=== PATIENT | male | born 1990 | race African-American/Black ===

== ENCOUNTER → 2022-08-13 | Outpatient (CLI) | payer MEDICAID, SELFPAY ==
--- NOTE | 2022-08-13 14:28 | SP.MBSS_ITS ---
Modified Barium Swallow - Patient Information Study Date: 08/13/22 Study Time: 13:00 Direct Billable Minutes: 77 Total Minutes procedure & reportin Diagnosis: GERD (K21.9) Referring Physician: Oleksandr Paul Reason for Referral: Objectively assess swallow function, assess risk for aspiration, and determine recommendations for least restrictive diet textures and compensatory strategies to improve safety of swallow. Medical History: Elías Leroy is a 32-year-old male with a history of GERD, treated with Omeprazole for about a year and a half. Patient reported he believes medication is not working. Patient reported his previous ENT, prior to seeing Dr. Paul, reported that the patient?s throat looked inflamed. Patient referred for speech evaluation due to concerns for swallowing. Patient reported that his throat feels tight every time he eats or drinks, and occasionally feels as though things may enter his nasopharynx, with onset of symptoms over a year ago. Patient reported he rarely coughs while eating and drinking and has no history of PNAs. 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 Patient has scheduled esophagram tomorrow, 08/14/22.? Dentition: WNL, Natural Teeth Mental Status: WNL Respiratory Status: Oxygenating on Room Air - Penetration-Aspiration Scale Penetration-Aspiration Scale: OBJECTIVE ASSESSMENT OF SWALLOW FUNCTION (QUANTITATIVE ? PER TRIAL): PENETRATION / ASPIRATION SCALE (BENAVIDES): 1 = does not enter airway 2 = enters airway/above vocal folds/ejected 3 = enters airway/above vocal folds/not ejected 4 = enters airway/contacts vocal folds/ejected 5 = enters airway/contacts vocal folds/not ejected 6 = enters airway/below vocal folds/ejected 7 = enters airway/below vocal folds/not ejected despite effort 8 = enters airway/below vocal folds/no effort VIDEOFLOROSCOPIC SCALE SCORE (BENAVIDES): Grade I = aspiration of material that has penetrated into the laryngeal vestibule, intact cough reflex Grade II = aspiration < 10 % of the bolus, intact cough reflex Grade III = aspiration of < 10 % of the bolus, reduced cough reflex or aspiration of > 10 % of the bolus, intact cough reflex Grade IV = aspiration of > 10 % of the bolus, reduced cough reflex - Penetration-Aspiration Scale Score Thin Liquid via teaspoon Result: 1= does not enter airway Thin Liquid via teaspoon Trial 2 Result: 1= does not enter airway Thin Liquid via large single sip from cup Result: 1= does not enter airway [place] Thick Liquid via small single sip from cup Result: 1= does not enter airway Pudding via teaspoon w/esophageal screen Result: 1= does not enter airway 1/2 Cookie Result: 1= does not enter airway Thin Liquid via sequential sips from straw w/esophageal screen Result: 1= does not enter airway - Oral Phase Labial Seal: No Labial Escape Tongue Control During Bolus Hold: Posterior escape of less than half of bolus Bolus Preparation/Mastication: Timely and efficient chewing and mashing Bolus Transport/Lingual Motion: Delayed initiation of tongue motion Oral Residue: Trace residue lining oral structures - Pharyngeal Phase Initiation of Pharyngeal Swallow: Bolus head at posterior laryngeal surgace of epiglottis Soft Palate Elevation: Trace column of contrast/air between soft palate and pharyngeal wall Laryngeal Elevation: Comp. Superior move thyroid cart w/comp. apprx arytenoid cart-epig pet Anterior Hyoid Excursion: Complete anterior movement Epiglottic Movement: Complete inversion Laryngeal Vestibule Closure at Height of Swallow: Complete; no air/contrast in laryngeal vestibule Pharyngeal Stripping Wave: Present - complete Pharyngoesophageal Segment Opening: Parital distension and partial duration; parital obstruction of flow Tongue Base Retraction: Trace column of contrast between tongue base & post. pharyngeal wall Pharyngeal Residue: Trace residue within or on pharyngeal structures - Esophageal Phase Esophageal Clearance: Esophageal retention - Diagnosis/Impression Diagnosis: Oropharyngeal Swallow Function Within Normal Limits Impression: The oral phase is grossly within normal limits. Brisk AP transport, with the exception of mildly delayed AP transport observed with large and sequential sips, resulting in posterior loss of <1/2 bolus, and swallow onset at the level of posterior surface of epiglottis. The pharyngeal phase is grossly within normal limits. Complete hyolaryngeal elevation, and excursion, resulting in complete airway closure. Trace contrast between tongue base and pharyngeal wall, resulting in trace pharyngeal residues, especially observed with large, and sequential sips. The esophageal phase is grossly within normal limits. Minimal retention in the mid esophagus with pudding trial, which cleared with thin liquid wash by sequential straw sips. - Recommendations Diet: Regular Textures, Thin Liquids Compensatory Strategies: Small Bites, Small Sips, Slow Rate Recommend Repeat Modified Barium Swallow: No Need for Skilled Speech Therapy Services: No Comment: No dysphagia therapy warranted at this time. Will recommend patient proceed with scheduled espohagram, scheduled for tomorrow, and consider GI consult to address GERD and esophageal concerns. Recommended Referrals: GI Consult Education Completed: 1. Described result of evaluation., 2. Pt understands evaluation & agrees with goals and treatment plan., 6. Family/caregivers demonstrate recommended strategies. - Status Active ST Patient: Active - Contact Information [facility] Speech Therapy:: Donna Murrieta M.A. [facility]-BUSINESS RESILIENCY MANAGER Speech-Language Pathologist [facility] [address] [place] [address] [email or web address] [phone] 08/13/22 14:41
== END | disposition home or self-care (01) ==
LOC: RAD 13:01
PROVIDERS: Referring Provider Otolaryngology; Visit Provider Otolaryngology
DX: K21.9 Gastro-esophageal reflux disease without esophagitis (principal)
CPT/HCPCS: 74230; 92611

== ENCOUNTER → 2022-08-14 | Outpatient (CLI) | payer MEDICAID, SELFPAY ==
--- NOTE | 2022-08-14 08:56 | RAD_ITS ---
STUDY: X-RAY - ESOPHAGUS (BARIUM SWALLOW) WITH FLUOROSCOPY REASON FOR EXAM: Male, 32 years old. GERD TECHNIQUE: 16 view(s) of the esophagus were obtained following swallowing of barium. FLUOROSCOPY TIME (if supplied): (38 seconds) minutes/seconds. 5.6 mGy COMPARISON: None. FINDINGS: There is no demonstrated esophageal foreign body. There is no demonstrated stricture or mucosal abnormality. Normal gastroesophageal junction, without a demonstrated hiatal hernia. The patient ingested a 12 mm tablet of barium without any difficulty. Normal visualized aortic arch and descending thoracic aorta. Normal visualized pulmonary parenchyma. Normal visualized osseous structures of the thorax. RAD/Esophagus Dual Contrast IMPRESSION: Normal plain film x-ray examination (barium swallow) of the esophagus. Electronically Signed: Jose Winston MD at 15:31 EDT ,
== END | disposition home or self-care (01) ==
LOC: RAD 08:47
PROVIDERS: Referring Provider Otolaryngology; Visit Provider Otolaryngology
DX: K21.9 Gastro-esophageal reflux disease without esophagitis (principal)
CPT/HCPCS: 74220; 74221

== ENCOUNTER 2022-08-23 17:43 | Emergency (ER) | payer MEDICAID, SELFPAY ==
[2022-08-23 17:44] VITALS: BP 155/85; PULSE 78; RESP 18; TEMP 37.7; O2SAT 100
--- NOTE | 2022-08-23 18:00 | RAD_ITS ---
INDICATION: Cough EXAMINATION/TECHNIQUE: X-RAY - XR Chest 2 Views COMPARISON: None FINDINGS: LINES/DEVICES: None. LUNGS: No consolidation, edema or effusion. No pneumothorax. MEDIASTINUM AND CARDIOVASCULAR STRUCTURES: Cardiac silhouette not enlarged. Central airways and mediastinal contour are unremarkable. RAD/Chest PA and Lateral IMPRESSION: No radiographic evidence of acute cardiopulmonary disease. Electronically Signed: Adarsh Rowley MD at 18:19 EDT ,
--- NOTE | 2022-08-23 18:02 | EX.ED.DYSGE1 ---
HPI History of Present Illness Chief Complaint: Shortness of Breath Narrative Narrative: Patient presents with hearing noises when he breathes at night. He is concerned he has obstruction of his airway or may be a stroke making him not Breathe Right. This has been going on for a second. When I try to ascertain how long the second is it sounds like this is at least months if not several years. I cannot get what changed or what is different or if anything is different to bring him in today. He did see ENT somewhere within the last month and had an exam and was told they see no abnormalities. He has been eating and drinking normally. No weight loss. He does have a history of anxiety. He denies being on meds. He states he might have a history of asthma but it does not sound like he is ever used an inhaler. He gets a cough but no sputum production. He has no numbness tingling weakness or discoordination. PFSH PFS Home Medications esomeprazole magnesium 20 mg capsule,delayed release (Nexium) 20 mg PO DAILY #30 caps 08/23/22 [Rx Last Taken Unknown] Allergy/AdvReac Type Severity Reaction Status Date / Time Sulfa (Sulfonamide Allergy Hives Verified 08/23/22 17:45 Antibiotics) Social History Smoking Status: Never smoker ROS ROS ED Constitutional Constitutional ED: Denies chills, fever(s) or sweats Eyes Eyes: Denies change in vision ENT ENT ED: Reports rhinorrhea; Denies ear pain or sore throat Cardiovascular Cardiovascular: Denies chest pain or palpitations Respiratory/Chest Respiratory/Chest: Reports cough and other Details: It is possible patient has some sleep apnea. He states that he is afraid he will stop breathing at night. But I cannot get from him if he actually wakes up gasping or with trouble breathing. ; Denies sputum Gastrointestinal Gastrointestinal: Denies nausea or vomiting Musculoskeletal Musculoskeletal: Denies myalgias or neck pain Integumentary Denies rash Neurologic Neurologic: Denies headache(s), paresthesias or weakness Hematologic/Lymphatic Hematologic/Lymphatic: Denies lymphadenopathy Allergic/Immunologic Allergic/Immunologic ED: Denies urticaria EXAM Physical Exam Const Vital Signs: 08/23/22 17:44 08/23/22 18:08 08/23/22 18:12 Temperature 100 F H Temperature Source Temporal Pulse Rate 78 Respiratory Rate 18 18 Respiratory Effort Normal Non-Labored Respiratory Depth Normal Respiratory Pattern Normal Normal Blood Pressure 155/85 H Blood Pressure Mean 108 Pulse Ox 100 Oxygen Delivery Method Room Air Room Air MDM MDM MDM Narrative Medical decision making narrative: Patient really did not get any notable benefit from the DuoNeb. We tried this because of his intermittent coughing and shortness of breath symptoms and history of possible asthma. My independent interpretation of his 2 view chest x-ray shows no acute process and final reading is similar. I talked with the patient more. It is very hard to get details from this patient. But he is now saying that he normally has problems when he goes to bed or when he wakes up. He does have acid taste in his mouth. He is wondering if this is from his stomach. It is certainly possible that reflux is causing him some coughing at night. Is not an uncommon cause. For this reason we will try his proton pump inhibitor for a few weeks. I will give him referral to primary physician. Radiography Diagnostic Testing: Clinical Impression(s) from Imaging Studies Chest X-Ray 08/23/22 18:00 IMPRESSION: No radiographic evidence of acute cardiopulmonary disease. Electronically Signed: Adarsh Rowley MD at 18:19 EDT , Discharge Plan Triage Chief Complaint: Shortness of Breath ED Provider: Jose Will Dx/Rx/DC Orders Clinical Impression: Cough, GERD (gastroesophageal reflux disease) Instructions: ED GERD (Adult) Prescriptions: New esomeprazole magnesium [Nexium] 20 mg capsule,delayed release(DR/EC) 20 mg PO DAILY Qty: 30 0RF Primary Care Provider: Care Physician,No Primary Referrals: Hank Camarena MD [Med Staff - Pharmacy Technician Infusion] - 1-2 Weeks Care Physician,No Primary [Primary Care Provider] - Disposition Disposition: Home, Self Care
[2022-08-23] MEDS: Ipratropium/Albuterol Sulfate 3 ML AMPUL.NEB INHALATION (18:06)
[2022-08-23 18:08] VITALS: RESP 18
--- NOTE | 2022-08-23 19:25 | CM.ED ---
Social Work Note Referral Source: case find Referral Reason: no PCP SW met with patient and introduced herself and role as [facility] Brand Strategist. Patient lying on hospital bed and agreeable to speak with SW. SW inquired about patient's insurance and current PCP. Patient verified insurance and reports no current PCP. SW provided patient with a list of local PCPs in network with patient's insurance and accepting new patients. Patient was receptive towards list and voiced no other needs. SW remains available if needs arise. Ayse Hawkins MSW, MERARY
== END 2022-08-23 20:21 | disposition home or self-care (01) ==
PROVIDERS: Emergency Provider Emergency Medicine; Visit Provider Emergency Medicine
DX: R05.9 Cough, unspecified (principal); K21.9 Gastro-esophageal reflux disease without esophagitis
CPT/HCPCS: 71046; 94640; 99282

== ENCOUNTER 2023-01-25 17:22 | Emergency (ER) | payer MEDICAID, SELFPAY ==
[2023-01-25 17:24] VITALS: BP 137/84; PULSE 115; RESP 18; TEMP 37.3; O2SAT 99; BMI 26.4
--- NOTE | 2023-01-25 18:24 | RAD_ITS ---
STUDY: X-RAY - MANDIBLE (COMPLETE) REASON FOR EXAM: Male, 32 years old. jaw pain TECHNIQUE: 6 view(s) of the mandible were obtained. COMPARISON: None. FINDINGS: Normal mandible. Normal visualized right temporomandibular joint. Normal visualized left temporomandibular joint. The remaining visualized osseous structures are normal. The soft tissue structures are unremarkable. RAD/Mandible Min 4 Views IMPRESSION: Normal x-ray examination of the mandible. MRI of TM joints recommended for further evaluation if clinically warranted Electronically Signed: Duong Cole MD at 19:00 EDT ,
--- NOTE | 2023-01-25 19:26 | EX.ED.DYSGE1 ---
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 He states it feels worse today upon awakening. Denies any trauma. He states he does grind his teeth pretty badly at night. He is never seen anybody for this. PFSH PFSH Home Medications esomeprazole magnesium 20 mg capsule,delayed release (Nexium) 20 mg PO DAILY #30 caps 08/23/22 [Rx Last Taken Unknown] ibuprofen 600 mg tablet 600 mg PO Q8H PRN PRN pain #20 TABLETS 01/25/23 [Rx Last Taken Unknown] Allergy/AdvReac Type Severity Reaction Status Date / Time Sulfa (Sulfonamide Allergy Hives Verified 01/25/23 17:24 Antibiotics) Social History Smoking Status: Current some day smoker tobacco type: cigarettes ROS ROS ED Constitutional Constitutional ED: Denies chills, fever(s) or sweats Eyes Eyes: Denies blurry vision or change in vision ENT ENT ED: Reports other Details: Jaw pain ; Denies ear pain or sore throat Cardiovascular Cardiovascular: Denies chest pain, palpitations or racing heartbeat Respiratory/Chest Respiratory/Chest: Denies cough, dyspnea or sputum Gastrointestinal Gastrointestinal: Denies abdominal pain, constipation, diarrhea, nausea or vomiting Genitourinary Genitourinary ED: Denies dysuria, hematuria or urinary frequency Musculoskeletal Musculoskeletal: Denies arthralgias, myalgias or neck pain Integumentary Denies abscess, Abrasions or rash Neurologic Neurologic: Denies headache(s), paresthesias or weakness Psychiatric Psychiatric: Denies anxiety, depression, suicidal ideation or suicidal thoughts Endocrine Endocrinology: Denies polydipsia or polyuria EXAM Physical Exam Const Vital Signs: 01/25/23 17:24 01/25/23 17:43 Temperature 99.1 F Temperature Source Temporal Pulse Rate 115 H Respiratory Rate 18 Respiratory Effort Normal Respiratory Pattern Normal Blood Pressure 137/84 H Blood Pressure Mean 101 Pulse Ox 99 Oxygen Delivery Method Room Air Positive well nourished General Appearance ED: NAD; Negative for pallor HEENT Reports moist mucous membranes HEENT Narrative: Jaw malocclusion. No trismus. Eyes PERRL and EOMs intact bilaterally Chest Wall inspection of chest normal and palpation of chest normal Resp normal respiratory effort and clear to auscultation bilaterally Auscultation: Negative for rales or rhonchi Cardio regular rate and regular rhythm Neuro oriented x3 and CN's II-XII intact bilaterally Sensorium / Orientation: alert Psych mental status grossly normal Skin no rashes or lesions noted and no wounds General Skin Exam: Negative for jaundice or pallor MDM MDM MDM Narrative Medical decision making narrative: Presenting with bilateral jaw pain and has a history of bruxism. No jaw malocclusion. No trismus. Otherwise oropharynx is patent without stridor. Obtained a mandible x-ray which shows no acute fracture or subluxation rotation. Radiologist interpretation agrees. Patient counseled he should alternate Tylenol and ibuprofen. He is given follow-up with maxillofacial. Impression: 1. TMJ 2. Bruxism Radiography Diagnostic Testing: Clinical Impression(s) from Imaging Studies Mandible X-Ray 01/25/23 18:24 IMPRESSION: Normal x-ray examination of the mandible. MRI of TM joints recommended for further evaluation if clinically warranted Electronically Signed: Duong Cole MD at 19:00 EDT , Discharge Plan Triage Chief Complaint: Other, Pain/Inj ED Provider: Thaddeus Gastelum Dx/Rx/DC Orders Instructions: Bruxism, ED TMJ Syndrome Prescriptions: New ibuprofen 600 mg tablet 600 mg PO Q8H PRN PRN (Reason: pain) Qty: 20 0RF No Action esomeprazole magnesium [Nexium] 20 mg capsule,delayed release(DR/EC) 20 mg PO DAILY Qty: 30 0RF Primary Care Provider: Care Physician,No Primary Referrals: Munir Thacker DDS [Med Staff - Active Staff] - 3-5 Days Care Physician,No Primary [Primary Care Provider] - Disposition Disposition: Home, Self Care
== END 2023-01-25 19:33 | disposition home or self-care (01) ==
PROVIDERS: Emergency Provider Student in an Organized Health Care Education/Training Program; Visit Provider Student in an Organized Health Care Education/Training Program
DX: R68.84 Jaw pain (principal); F17.210 Nicotine dependence, cigarettes, uncomplicated
CPT/HCPCS: 70110; 99282

== ENCOUNTER 2023-03-09 02:19 | Emergency (ER) | payer MEDICAID, SELFPAY ==
[2023-03-09 02:19] VITALS: BP 167/91; PULSE 98; RESP 16; TEMP 36.6; O2SAT 99; BMI 27.2
--- NOTE | 2023-03-09 02:54 | EX.ED.DYSGE1 ---
HPI History of Present Illness Chief Complaint: Anxiety Informant: patient Narrative Narrative: Patient is a 33-year-old male who reports a remote history of anxiety but states he is not on medication for it. He states that he has been under a great deal of stress recently and has had the sensation that something bad will happen. He states that he feels that his heart is racing and that his muscles are spasming. He denies taking any illicit drugs or excessive stimulant. He states that his symptoms have been persistent since earlier this evening and as he cannot get to sleep secondary to the persistent sensation of anxiety or doom he comes in for evaluation. [facility] Medical History (Updated 03/09/23 @ 05:[address] Viktor Valdez DO) Anxiety Home Medications esomeprazole magnesium 20 mg capsule,delayed release (Nexium) 20 mg PO DAILY #30 caps 08/23/22 [Rx Last Taken Unknown] ibuprofen 600 mg tablet 600 mg PO Q8H PRN PRN pain #20 TABLETS 01/25/23 [Rx Last Taken Unknown] escitalopram oxalate 10 mg tablet (Lexapro) 10 mg PO DAILY 30 days #30 tabs 03/09/23 [Rx Last Taken Unknown] hydroxyzine HCl 25 mg tablet 25 mg PO 4X/DAY PRN PRN Breakthrough anxiety #40 tabs 03/09/23 [Rx Last Taken Unknown] Allergy/AdvReac Type Severity Reaction Status Date / Time Sulfa (Sulfonamide Allergy Hives Verified 03/09/23 02:22 Antibiotics) Social History Smoking Status: Current some day smoker tobacco type: cigarettes ROS ROS ED Constitutional Constitutional ED: Denies chills or fever(s) Eyes Eyes: Denies blurry vision or change in vision ENT ENT ED: Denies sore throat Cardiovascular Cardiovascular: Reports racing heartbeat; Denies chest pain or palpitations Respiratory/Chest Respiratory/Chest: Reports dyspnea; Denies cough Gastrointestinal Gastrointestinal: Reports nausea; Denies abdominal pain, diarrhea or vomiting Genitourinary Genitourinary ED: Denies dysuria Musculoskeletal Musculoskeletal: Reports myalgias Integumentary Denies rash Neurologic Neurologic: Denies headache(s) Psychiatric Psychiatric: Reports anxiety; Denies suicidal ideation or suicidal thoughts Hematologic/Lymphatic Hematologic/Lymphatic: Denies easy bleeding or easy bruising EXAM Physical Exam Const Vital Signs: 11/18/23 02:19 03/09/23 03:00 Temperature 98 F Temperature Source Temporal Pulse Rate 98 98 Respiratory Rate 16 15 Blood Pressure 167/91 H 188/104 H Blood Pressure Mean 116 132 Pulse Ox 99 99 Oxygen Delivery Method Room Air Positive well nourished and well developed General Appearance ED: well developed HEENT Reports moist mucous membranes Eyes PERRL and EOMs intact bilaterally General Eye ED: Negative for scleral icterus Neck supple Neck Narrative: No nuchal rigidity or meningeal signs noted Resp normal respiratory effort and clear to auscultation bilaterally Cardio regular rate and regular rhythm Rate: other Other Details: Heart is regular rate and rhythm without murmurs rubs or gallops Radial and carotid pulses are equal and symmetric GI normal to inspection, nondistended, normoactive bowel sounds, non-tender, non-distended and no masses GI Narrative: No voluntary guarding or rigidity. No pulsatile mass or fluid wave Auscultation: normoactive bowel sounds Palpation: soft Extremity normal to inspection Neuro oriented x3, CN's II-XII intact bilaterally and no sensory deficits noted Sensorium / Orientation: alert Motor Exam: strength 5/5 throughout Psych Psych Narrative: Patient has a nervous/anxious affect without homicidal or suicidal ideation Skin no rashes or lesions noted MDM MDM MDM Narrative Medical decision making narrative: Patient presented to the ER hypertensive otherwise with stable vitals. He reported a remote history of anxiety that is not treated with medication. He states has been having increased life stressors recently and his symptom profile of palpitations shortness of breath with impending sense of doom is most likely related to anxiety. As his neuro exam is normal he does not have belly pain or chest pain concern for acute coronary syndrome hypertensive emergency or cardiovascular event is low I do not feel there is need for work-up. Patient also denies any homicidal or suicidal ideation and is not displaying acute psychosis therefore there is no need for acute psychiatric work-up. Patient was given Ativan in ER to temporarily control symptoms and will be discharged home with Lexapro and hydroxyzine for continued anxiety control. History & Record Review Discussion w/independent historian: Patient Discharge Plan Triage Chief Complaint: Anxiety ED Provider: Viktor Valdez Dx/Rx/DC Orders Clinical Impression: Anxiety reaction, Hypertension Instructions: Anxiety Disorders Tx, ED Anxiety Reaction Prescriptions: New escitalopram oxalate [Lexapro] 10 mg tablet 10 mg PO DAILY 30 Days Qty: 30 0RF hydroxyzine HCl 25 mg tablet 25 mg PO 4X/DAY PRN PRN (Reason: Breakthrough anxiety) Qty: 40 0RF No Action esomeprazole magnesium [Nexium] 20 mg capsule,delayed release(DR/EC) 20 mg PO DAILY Qty: 30 0RF ibuprofen 600 mg tablet 600 mg PO Q8H PRN PRN (Reason: pain) Qty: 20 0RF Primary Care Provider: Karyna Maldonado NP Referrals: Karyna Maldonado CONSULTING PRACTICE DIRECTOR, CONSULTING PRACTICE DIRECTOR-C [Primary Care Provider] - Activity Restrictions/Additional Instructions: Please take the medication as prescribed to help control your symptoms and return to the ER should you have any further concerns Disposition Disposition: Home, Self Care Discharge Date/Time: 03/09/23 03:03
[2023-03-09] MEDS: LORazepam 1 MG Tablet 2 MG PO (02:59)
[2023-03-09 03:00] VITALS: BP 188/104; PULSE 98; RESP 15; O2SAT 99
== END 2023-03-09 03:03 | disposition home or self-care (01) ==
PROVIDERS: Emergency Provider Emergency Medicine; PCP Internal Medicine; Visit Provider Emergency Medicine
DX: F41.1 Generalized anxiety disorder (principal); I10 Essential (primary) hypertension; F17.210 Nicotine dependence, cigarettes, uncomplicated
CPT/HCPCS: 99282

== ENCOUNTER 2023-05-11 14:31 | Observation (INO) | payer MEDICAID, SELFPAY ==
[2023-05-11] VITALS (16 sets, daily range): BP systolic 121–157; BP diastolic 57–90; PULSE 56–88; RESP 12–21; TEMP 36.7–36.8; O2SAT 93–100; BMI 29.0; BMI 27.9
--- NOTE | 2023-05-11 14:33 | EDS_ITS ---
HPI History of Present Illness Chief Complaint: Allergic Reaction [facility] Medical History (Updated 05/11/23 @ 15:[address] Oleksandr Paul MD) Anxiety Home Medications escitalopram oxalate 10 mg tablet (Lexapro) 10 mg PO DAILY 30 days #30 tabs 03/09/23 [Rx Last Taken Unknown] hydroxyzine HCl 25 mg tablet 25 mg PO 4X/DAY PRN PRN Breakthrough anxiety #40 tabs 03/09/23 [Rx Last Taken Unknown] Allergy/AdvReac Type Severity Reaction Status Date / Time escitalopram [From Lexapro] Allergy Severe Angioedema Verified 05/11/23 16:00 shellfish derived Allergy shellfish Verified 05/11/23 14:38 Sulfa (Sulfonamide Allergy Hives Verified 05/11/23 14:35 Antibiotics) Social History Smoking Status: Current some day smoker tobacco type: cigarettes EXAM Physical Exam Const Vital Signs: 05/11/23 14:32 05/11/23 14:52 05/11/23 15:01 Temperature 98.0 F Temperature Source Temporal Pulse Rate 83 88 70 Respiratory Rate 18 21 H 15 Blood Pressure 151/74 H 157/90 H 150/79 H Blood Pressure Mean 99 112 102 Pulse Ox 100 100 100 Oxygen Delivery Method Room Air Room Air Room Air MDM MDM MDM Narrative Medical decision making narrative: HISTORY OF PRESENT ILLNESS: 33-year-old male here with concern for allergic reaction. He states at approximately noon he developed scratchiness and itchiness to his throat, swelling that is progressed. Denies any recent travel new foods, new medicines. States he took his Lexapro as usual this morning. He denies any chest pain or shortness of breath. He notes allergies to shellfish and sulfa but denies being exposed to substances. Denies any family history of angioedema. REVIEW OF SYSTEMS: Pertinent positives: Throat swelling, drooling Pertinent negatives: Chest pain, shortness of breath PHYSICAL EXAM: Nursing triage notes reviewed, Vital signs reviewed Constitutional: please see mdm HENT: MMM, initial exam showed an edematous tongue, trismus, drooling, cannot visualize the posterior oropharynx. There is no submandibular edema, there is no edema or brawny swelling to the floor of the mouth. Tonsils are nonedematous, there is no watery edema, no erythema, no exudates. Eyes: Pupils equal round and reactive to light, Extraocular muscles intact Neck: No stridor, no JVD, full neck ROM Lungs: Clear to auscultation, No wheezing or rales. No increased work of breathing, no conversational dyspnea, no accessory muscle use, no nasal flaring. No respiratory distress noted Heart: Regular rate and rhythm, No murmurs, No rubs and No gallops, 2+ distal pulses (radial, femoral, posterior tibial) in all extremities Abdomen: Soft, there is no tenderness, rigidity, rebound or guarding, no obvious peritoneal signs, no palpable pulsatile abdominal masses, no auscultated abdominal bruit : No CVAT Extremities: No edema Neuro: No focal neurological deficits, cranial nerves II through XII intact, 5/5 strength in all extremities. Intact sensation to light touch in all extremities, 2+ reflexes bilateral patella tendons. Normal gait. No ataxia. Skin: No rash or lesions noted MEDICAL DECISION MAKING: Chief Complaint: Allergic reaction External records reviewed: Last ED visit in February 2023 Factors affecting care: none Social determinants of health: none History obtained from others: none Consults: Airway team, ENT (Dr. Orr), critical care hospitalist [facility] Narrative: Patient was hemodynamically stable, afebrile, nontoxic-appearing. He was somnolent however answering questions. I considered the following differential diagnosis: Angioedema, allergic reaction, airway compromise Patient initial presentation was very concerning for impending airway compromise. He had trismus, his tongue was swollen and he was drooling he was a bit somnolent as well. This is concerning for impending airway compromise. Patient was moved to a larger treatment room. Bilateral IVs were established. Given empiric treatment for allergy and swelling with Decadron, epinephrine, Benadryl and Pepcid. Type and screen ordered for potential FFP if needed. Airway team called. Fiberoptic scope was placed inside the left nares to visualize the larynx. Direct laryngoscopy revealed no significant laryngeal edema, epiglottitis, vocal cords were freely movable. Dr. Orr (ENT) graciously responded immediately and was in the ED within minutes of airway team. He assisted with direct laryngoscopy. He stated the posterior oropharynx was not edematous or swollen stated there is no indication for emergent intubation however would like the patient observed at least overnight and we will see him in the morning. Discussed with hospitalist who agreed to except the patient's case. I discussed this with the hospitalist at the patient mated to the [facility] care unit for airway watch. Labs were obtained, chest x-ray and EKG were obtained EKG showed normal sinus rhythm, normal axis, normal intervals, no STEMI I have personally reviewed the patient's chest x-ray. Chest x-ray is unremarkable for pulmonary edema, pneumothorax, pneumonia or focal cardiopulmonary abnormality. CBC without leukocytosis, severe anemia, no thrombocytopenia. BMP without evidence of significant electrolyte abnormalities, no anion gap, no acute kidney injury. LFTs show no evidence of hepatobiliary pathology. Synthesis of the patient's history, physical exam, ED interventions and observation suggest acute oropharyngeal swelling likely secondary to angioedema. The etiology remains unclear however. Given unclear etiology concern for rebound swelling and significant airway compromise will admit the patient for airway watch. The patient and/or family, caregivers express understanding. The patient and/or family, caregivers agrees with the plan. Shared decision making: I will have a discussion with the patient and or visitors regarding risk/benefits of further testing or admission. They will be made aware of of the risk/benefits inherent in this decision they will be given the opportunity to voice understanding. Total critical care time today provided was at least 30 minutes. This excludes separately billable procedures. Critical care time (if documented) is secondary to the patient having high probability of clinically significant/life threatening deterioration in the patient's condition which required my urgent intervention. Impression: 1. Oral swelling 2. Angioedema 3. Trismus Dispo: admit to ICU Lab Data Labs: Laboratory Results - last 24 hr 05/11/23 14:37 WBC 6.5 RBC 5.01 Hgb 13.6 Hct 43.1 MCV 86.0 MCH 27.1 MCHC 31.6 L RDW Std Deviation 40.6 RDW Coeff of Omid 13.1 Plt Count 282 MPV 10.6 Immature Gran % (Auto) 0.300 Neut % (Auto) 45.1 L Lymph % (Auto) 42.6 H [place] % (Auto) 8.3 Eos % (Auto) 3.1 Baso % (Auto) 0.6 Absolute Neuts (auto) 2.9 Absolute Lymphs (auto) 2.78 Nucleated RBC % 0 Sodium 142 Potassium 3.6 Chloride 109 H Carbon Dioxide 30.0 Anion Gap 3 L BUN 10 Creatinine 1.29 Estim Creat Clear Calc 97.27 Est GFR (MDRD) Af Amer 83 Est GFR (MDRD) Non-Af 69 BUN/Creatinine Ratio 7.8 L Glucose 124 H Calcium 9.0 Total Bilirubin 0.70 AST 13 L ALT 22 Alkaline Phosphatase 87 Total Protein 7.3 Albumin 3.6 Globulin 3.7 Albumin/Globulin Ratio 1.0 Radiography Diagnostic Testing: Clinical Impression(s) from Imaging Studies Chest X-Ray 05/11/23 15:15 IMPRESSION: No evidence of acute cardiopulmonary process. Electronically Signed: Orville Rick DO at 15:24 EST , Discharge Plan Triage Chief Complaint: Allergic Reaction ED Provider: Sloan Honeycutt Dx/Rx/DC Orders Primary Care Provider: Karyna Maldonado [employer]SULTING SOFTWARE ENGINEER
[2023-05-11] MEDS: dexAMETHasone 10 MG/ML Vial IV (14:42)
[2023-05-11] MEDS: DiphenhydrAMINE 50 MG/ML Syringe IV (14:42)
--- NOTE | 2023-05-11 14:42 | ED.RN ---
NO OLD EKG
[2023-05-11] MEDS: Epi Pen (EQUIV) 0.3 MG Syringe 0.299999999999999989 MG IM (14:43)
--- OUTSIDE RECORDS SUMMARY | 2023-05-11 14:48 | XMS RPT_ITS | CCD ---
Author Name Unknown Address [address] [place] [address] Organization [facility] Care Team Providers Care Cabin Worker Name Role Phone Foster DDS, Shannan Unavailable Unavailable Foster DDS, Shannan K Attending Unavailabl e Safety Net, Provider Primary Care Unavailable Foster DDS, Shannan K Attending Unavailabl e Safety Net, Provider Primary Care Unavailable Foster DDS, Shannan Unavailable Unavailable Foster DDS, Shannan Unavailable Unavailable Corky LEWIS, Hetla Unavailable Unavailable Dante Gonsalves Primary Care Provider Dante Gonsalves Primary Care Provider Rivas Wu Unavailable Unavailable Unknown, Referring Provider Unavailable Unav ailable Rivas Wu Unavailable Unavailable Dante Gonsalves DO Primary Care Provider [phone] Refugio Rose MD Unavailable Unavailable Jazmin PAIN MANAGEMENT PHYSICIAN-MACHINE SPECIALISTRivas Unavailable Unavailable Unknown, Referring Provider Unavailable Unav ailable Rivas Wu Unavailable Unavailable Xavier Hernandez MD Unavailable Unavailable Unknown, Referring Provider Unavailable Unav ailable Unavailable Unavailable Dante Gonsalves DO Primary Care Provider Unknown, Pcp Unavailable Unavailable Eulalio Gracia Unavailable Unavailable PROVIDER, UNKNOWN Admitting Unavailable NOA MENA Attending Unavailable PROVIDER, UNKNOWN Admitting Unavailable PROVIDER, UNKNOWN Attending Unavailable PROVIDER, UNKNOWN Admitting Unavailable PROVIDER, UNKNOWN Attending Unavailable PROVIDER, UNKNOWN Admitting Unavailable PROVIDER, UNKNOWN Attending Unavailable PROVIDER, UNKNOWN Admitting Unavailable PROVIDER, UNKNOWN Attending Unavailable PROVIDER, UNKNOWN Admitting Unavailable PROVIDER, UNKNOWN Attending Unavailable PROVIDER, UNKNOWN Admitting Unavailable PROVIDER, UNKNOWN Attending Unavailable PROVIDER, UNKNOWN Admitting Unavailable PROVIDER, UNKNOWN Attending Unavailable Shaka TELLESS, Sally Unavailable Tammy GANDARAN-Tamiko PERRY Unavailable Ava Henry KOKIS, Rosy Unavailable Rodney TELLESS, Nour Unavailable Joshua TELLESS, Luisito Unavailable Unavailable Primary Care Provider UnavailAna Talavera MD Primary Care Provider TALAMPAS, ANA D Primary Care Unavailable ORLANDO MALDONADO Attending Unavailable TALAMPAS, ANA D Primary Care Unavailable CHRISTIANO PARK Referring Unavailable TALAMPAS, ANA D Primary Care Unavailable TALAMPAS, ANA D Primary Care Unavailable TALAMPAS, ANA D Primary Care Unavailable TALAMPAS, ANA D Primary Care Unavailable ORLANDO MALDONADO Referring Unavailable ORLANDO MALDONADO Attending Unavailable JEN MARTINEZ Attending Unavailable TALAMPAS, ANA D Primary Care Unavailable TALAMPAS, ANA D Referring Unavailable TALAMPAS, ANA D Primary Care Unavailable TALAMPAS, ANA D Attending Unavailable ORLANDO MALDONADO Referring Unavailable Shaka DAWSON Sally Unavailable Tamiko Lambert Unavailable Ava Henry DDS, Rosy Unavailable [phone] Bradymarj TELLESS, Nour Unavailable Larryrisa TELLESSLuisito Unavailable Allergies Allergy Classification Reported Allergen(s) Allergy Type Date of Onset Reaction(s) Facility Sulfonamides (antibiotic) (4 sources) Sulfonamides (Antibiotic); Translations: [Sulfa Drugs] Drug Allergy 5 Rash [facility] (5 sources) Sulfonamides (Antibiotic); Translations: [Sulfa (Sulfonamide Antibiotics)] propensity to adverse reactions to drug 9 [facility] (7 sources) Sulfonamides (Antibiotic); Translations: [SULFA ANTIBIOTICS] Propensity to adverse reactions to drug 5 Rash [facility] Work Phone: (1 source) Sulfonamides (Antibiotic) Unknown [facility] (3 sources) Sulfacetamide; Translations: [SULFACETAMIDE SODIUM] Drug Allergy 5 Rash [facility] (16 sources) Sulfonamides (Antibiotic) Propensity to adverse reactions to drug 9 Hives [facility] Work Phone: (15 sources) Acetaminophen / HYDROcodone; Translations: [HYDROCODONE-ACET AMINOPHEN] Drug Allergy 1 Itching [facility] Work Phone: Medications Current Medications Medication Drug Class(es) Dates Sig (Normalized) Sig (Original) acetaminophen 500 mg oral tablet (3 sources) Start: 09-24-2019 acetaminophen (TYLENOL) tablet 1,000 mg Completed/Discontinued Medications Medication Drug Class(es) Dates Sig (Normalized) Sig (Original) acetaminophen 325 mg / HYDROcodone bitartrate 5 mg oral tablet (2 sources) Opioid Agonist Start: 04-21-2020 End: 04-23-2020 take 1 tablet by mouth every six hours hydrocodone-acetami nophen 5 mg-325 mg oral tablet ; 1 tab(s) orally every 6 hours Quantity: 12 Refills: 0 Ordered: 21-Apr-2020 Viktor Valdez Start: 21-Apr-2020 End: 23-Apr-2020 Status: Discontinued Generic Substitution Allowed Comments: Caution federal law prohibits the transfer of this drug to any person other than the person for whom it was prescribed.May cause drowsiness. Alcohol may intensify this effect. Use care when operating dangerous machinery.This product contains acetaminophen. Do not use with any other product containing acetaminophen to prevent possible liver damage.Using more of this medication than prescribed may cause serious breathing problems. Problems Active Problems Problem Classification Problem Date Documented Da te Episodic/Chronic Administrative/social admission (2 sources) Patient encounter status; Translations: [Persons encountering health services in other specified circumstances] Episodic Alcohol-related disorders (2 sources) Alcohol abuse; Translations: [Alcohol abuse, uncomplicated] Onset: 1 08-31-2020 Chronic Anal and rectal conditions (4 sources) Rectal pain; Translations: [Anal or rectal pain] Episodic Anxiety disorders (2 sources) Anxiety; Translations: [Generalized anxiety disorder] 01-08-2023 Chronic Asthma (3 sources) Mild intermittent asthma; Translations: [Mild intermittent asthma with (acute) exacerbation] 01-07-2023 Chronic Conditions associated with dizziness or vertigo (3 sources) Lightheadedness; Translations: [Dizziness and giddiness] Episodic Developmental disorders (3 sources) Articulatory defect; 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 Esophageal disorders (3 sources) Gastroesophageal reflux disease; Translations: [Gastro-esophageal reflux disease without esophagitis] 01-08-2023 Chronic Mood disorders (1 source) Depressive disorder; Translations: [Depression, unspecified depression type] Chronic Nutritional deficiencies (3 sources) Vitamin D deficiency; Translations: [Vitamin D deficiency, unspecified] Onset: 3 Chronic Other connective tissue disease (3 sources) Weakness of face muscles; Translations: [Facial weakness] Episodic Other ear and sense organ disorders (3 sources) Tinnitus; Translations: [Tinnitus, unspecified] Episodic Other ear and sense organ disorders (3 sources) Ear pressure sensation; Translations: [Other disorders of ear] Episodic Other gastrointestinal disorders (4 sources) Constipation alternates with diarrhea; Translations: [Other symptoms involving digestive system] Episodic Other gastrointestinal disorders (5 sources) Dysphagia; Translations: [Dysphagia, unspecified] Episodic Other lower respiratory disease (1 source) Cough; Translations: [Acute cough] 01-03-2023 Episodic Other lower respiratory disease (1 source) Dyspnea; Translations: [Shortness of breath] 01-03-2023 Episodic Other nervous system disorders (1 source) Ulnar nerve entrapment; Translations: [Lesion of ulnar nerve, right upper limb] 10-30-2022 Chronic Other nervous system disorders (3 sources) Finding of sensation of upper limb; Translations: [Disturbance of skin sensation] Episodic Other nervous system disorders (3 sources) Tremor, unspecified; Translations: [Abnormal involuntary movements] Onset: 3 01-08-2023 Episodic Other upper respiratory disease (1 source) Allergic rhinitis; Translations: [Allergic rhinitis, unspecified] 01-08-2023 Chronic Other upper respiratory disease (3 sources) Dysphonia; Translations: [Dysphonia] Episodic Other upper respiratory disease (3 sources) Nasal discharge; Translations: [Other disease of nasal cavity and sinuses] Episodic Other upper respiratory disease (2 sources) Pain in throat 03-07-2021 Episodic Past or Other Problems Problem Classification Problem Date Documented Da te Episodic/Chronic Coma; stupor; and brain damage (3 sources) Stupor; Translations: [Stupor] Onset: 3 Episodic Disorders of teeth and jaw (20 sources) Deposits [accretions] on teeth; Translations: [Dental caries on pit and fissure surface penetrating into dentin] Onset: 9 08-15-2018 Episodic Genitourinary symptoms and ill-defined conditions (9 sources) Dysuria; Translations: [Dysuria] Onset: 0 06-17-2019 Episodic Immunizations and screening for infectious disease (9 sources) Contact with or exposure to venereal diseases; Translations: [Viral screening status] Onset: 3 Episodic Malaise and fatigue (2 sources) Fatigue; Translations: [Other fatigue] Onset: 3 Episodic Other gastrointestinal disorders (3 sources) History of gastroesophageal reflux disease; Translations: [Personal history of other diseases of digestive system] Resolved: 0 Episodic Other injuries and conditions due to external causes (14 sources) Injury of face; Translations: [Unspecified injury of face, initial encounter] Onset: 0 02-12-2020 Episodic Other screening for suspected conditions (not mental disorders or infectious disease) (1 source) Encounter for screening for lipoid disorders; Translations: [Screening for lipid disorders] Onset: 3 Episodic Skull and face fractures (2 sources) Fracture of mandible, closed; Translations: [Fracture of mandible, unspecified, initial encounter for closed fracture] Onset: 5 12-04-2004 Episodic Substance-related disorders (2 sources) 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; 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, 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] Onset: 1 08-31-2020 Episodic Unclassified (2 sources) Patient encounter status; Translations: [Encounter for procedure] Viral infection (15 sources) Penile warts; Translations: [Condyloma acuminatum] Onset: 0 06-17-2019 Episodic NEGATED: Highlighted row has not occurred!Residual codes; unclassified (5 sources) Disease Episodic Results Test Name Value Interpretation Reference Range Facil ity Vital Signs Date Time Vital Sign Value Performing Clinician Facility 01-08-2023 09:11-0400 Body height 177.8 cm Ana Kaiser MD Work Phone: [facility] 01-08-2023 09:11-0400 Body weight 84.82 kg Ana Kaiser MD Work Phone: [facility] 01-08-2023 09:11-0400 Diastolic blood pressure 60 mm[Hg] Ana Kaiser MD Work Phone: [facility] 01-08-2023 09:11-0400 Heart rate 80 /min Ana Kaiser MD Work Phone: [facility] 01-08-2023 09:11-0400 Respiratory rate 16 /min Ana Kaiser MD Work Phone: [facility] 01-08-2023 09:11-0400 Systolic blood pressure 120 mm[Hg] Ana Kaiser MD Work Phone: [facility] 01-07-2023 10:44-0400 Body weight 84.82 kg Orlando Erica PAIN MANAGEMENT PHYSICIAN.MACHINE SPECIALIST Work Phone: [facility] 01-07-2023 10:44-0400 Diastolic blood pressure 68 mm[Hg] Orlando Erica PAIN MANAGEMENT PHYSICIAN.MACHINE SPECIALIST Work Phone: [facility] 01-07-2023 10:44-0400 Heart rate 87 /min Orlando Erica PAIN MANAGEMENT PHYSICIAN.MACHINE SPECIALIST Work Phone: [facility] 01-07-2023 10:44-0400 SaO2% (BldA) [Mass fraction] 99 % Orlando Erica PAIN MANAGEMENT PHYSICIAN.MACHINE SPECIALIST Work Phone: [facility] 01-07-2023 10:44-0400 Systolic blood pressure 120 mm[Hg] Orlando Erica PAIN MANAGEMENT PHYSICIAN.MACHINE SPECIALIST Work Phone: [facility] 01-03-2023 16:27-0400 Body temperature 99.5 [degF] Christiano Park PAIN MANAGEMENT PHYSICIAN.MACHINE SPECIALIST Work Phone: [facility] 01-03-2023 16:27-0400 Body weight 81.19 kg Christiano Park PAIN MANAGEMENT PHYSICIAN.MACHINE SPECIALIST Work Phone: [facility] 01-03-2023 16:27-0400 Diastolic blood pressure 94 mm[Hg] Christiano Xavier PAIN MANAGEMENT PHYSICIAN.MACHINE SPECIALIST Work Phone: [facility] 01-03-2023 16:27-0400 Heart rate 122 /min Christiano Xavier PAIN MANAGEMENT PHYSICIAN.MACHINE SPECIALIST Work Phone: [facility] 01-03-2023 16:27-0400 Respiratory rate 16 /min Christiano Xavier PAIN MANAGEMENT PHYSICIAN.MACHINE SPECIALIST Work Phone: [facility] 01-03-2023 16:27-0400 SaO2% (BldA) [Mass fraction] 98 % Christiano Xavier PAIN MANAGEMENT PHYSICIAN.MACHINE SPECIALIST Work Phone: [facility] 01-03-2023 16:27-0400 Systolic blood pressure 176 mm[Hg] Christiano Xavier PAIN MANAGEMENT PHYSICIAN.MACHINE SPECIALIST Work Phone: [facility] 12-09-2022 14:23-0400 Body temperature 99.9 [degF] Zahida Omar PAIN MANAGEMENT PHYSICIAN.MACHINE SPECIALIST Work Phone: [facility] 12-09-2022 14:23-0400 Body weight 82.37 kg Zahida Omar PAIN MANAGEMENT PHYSICIAN.MACHINE SPECIALIST Work Phone: [facility] 12-09-2022 14:23-0400 Diastolic blood pressure 84 mm[Hg] Zahida Moar PAIN MANAGEMENT PHYSICIAN.MACHINE SPECIALIST Work Phone: [facility] 12-09-2022 14:23-0400 Heart rate 118 /min Zahida Omar PAIN MANAGEMENT PHYSICIAN.MACHINE SPECIALIST Work Phone: [facility] 12-09-2022 14:23-0400 Respiratory rate 16 /min Zahida Omar PAIN MANAGEMENT PHYSICIAN.MACHINE SPECIALIST Work Phone: [facility] 12-09-2022 14:23-0400 SaO2% (BldA) [Mass fraction] 96 % Zahida Omar PAIN MANAGEMENT PHYSICIAN.MACHINE SPECIALIST Work Phone: [facility] 12-09-2022 14:23-0400 Systolic blood pressure 146 mm[Hg] Zahida Omar PAIN MANAGEMENT PHYSICIAN.MACHINE SPECIALIST Work Phone: [facility] 10-30-2022 15:30-0400 Body temperature 98.6 [degF] Duong Pendlebury PAIN MANAGEMENT PHYSICIAN.MACHINE SPECIALIST Work Phone: [facility] 10-30-2022 15:30-0400 Body weight 84.73 kg Duong Pendlebury PAIN MANAGEMENT PHYSICIAN.MACHINE SPECIALIST Work Phone: [facility] 10-30-2022 15:30-0400 Diastolic blood pressure 84 mm[Hg] Duong Pendlebury PAIN MANAGEMENT PHYSICIAN.MACHINE SPECIALIST Work Phone: [facility] 10-30-2022 15:30-0400 Heart rate 78 /min Duong Pendlebury PAIN MANAGEMENT PHYSICIAN.MACHINE SPECIALIST Work Phone: [facility] 10-30-2022 15:30-0400 Respiratory rate 16 /min Duong Pendlebury PAIN MANAGEMENT PHYSICIAN.MACHINE SPECIALIST Work Phone: [facility] 10-30-2022 15:30-0400 SaO2% (BldA) [Mass fraction] 96 % Duong Pendlebury PAIN MANAGEMENT PHYSICIAN.MACHINE SPECIALIST Work Phone: [facility] 10-30-2022 15:30-0400 Systolic blood pressure 136 mm[Hg] Duong Pendlebury PAIN MANAGEMENT PHYSICIAN.MACHINE SPECIALIST Work Phone: [facility] 06-26-2022 10:32-0500 Body height 177.8 cm Orlando Erica PAIN MANAGEMENT PHYSICIAN.MACHINE SPECIALIST Work Phone: [facility] 06-26-2022 10:32-0500 Body weight 79.83 kg Orlando Erica PAIN MANAGEMENT PHYSICIAN.MACHINE SPECIALIST Work Phone: [facility] 06-26-2022 10:32-0500 Diastolic blood pressure 80 mm[Hg] Orlando Erica PAIN MANAGEMENT PHYSICIAN.MACHINE SPECIALIST Work Phone: [facility] 06-26-2022 10:32-0500 Heart rate 107 /min Orlando Erica PAIN MANAGEMENT PHYSICIAN.MACHINE SPECIALIST Work Phone: [facility] 06-26-2022 10:32-0500 SaO2% (BldA) [Mass fraction] 98 % Orlando Erica PAIN MANAGEMENT PHYSICIAN.MACHINE SPECIALIST Work Phone: [facility] 06-26-2022 10:32-0500 Systolic blood pressure 100 mm[Hg] Orlando Erica PAIN MANAGEMENT PHYSICIAN.MACHINE SPECIALIST Work Phone: [facility] 06-17-2022 14:40-0500 Body temperature 98.2 [degF] Jasmine Athy PA-C Work Phone: [facility] 06-17-2022 14:40-0500 Body weight 79.65 kg Jasmine Athy PA-C Work Phone: [facility] 06-17-2022 14:40-0500 Diastolic blood pressure 92 mm[Hg] Jasmine Athy PA-C Work Phone: [facility] 06-17-2022 14:40-0500 Heart rate 70 /min Jasmine Athy PA-C Work Phone: [facility] 06-17-2022 14:40-0500 Respiratory rate 18 /min Jasmine Athy PA-C Work Phone: [facility] 06-17-2022 14:40-0500 SaO2% (BldA) [Mass fraction] 98 % Jasmine Athy PA-C Work Phone: [facility] 06-17-2022 14:40-0500 Systolic blood pressure 140 mm[Hg] Jasmine Athy PA-C Work Phone: [facility] 03-07-2021 07:39-0500 Body height 180.3 cm Pcp Unknown [facility] 03-07-2021 07:39-0500 Body temperature 96.62 [degF] Pcp Unknown [facility] 03-07-2021 07:39-0500 Body weight 81.2 kg Pcp Unknown [facility] 03-07-2021 07:39-0500 Diastolic blood pressure 91 mm[Hg] Pcp Unknown [facility] 03-07-2021 07:39-0500 Heart rate 79 /min Pcp Unknown [facility] 03-07-2021 07:39-0500 Respiratory rate 16 /min Pcp Unknown [facility] 03-07-2021 07:39-0500 SaO2% (BldA) [Mass fraction] 97 % Pcp Unknown [facility] 03-07-2021 07:39-0500 Systolic blood pressure 137 mm[Hg] Pcp Unknown [facility] 02-05-2021 12:01-0400 Diastolic blood pressure 103 mm[Hg] Dante Rine DO Work Phone: [facility] Work Phone: 02-05-2021 12:01-0400 Heart rate 78 /min Dante Rine DO Work Phone: [facility] Work Phone: 02-05-2021 12:01-0400 Respiratory rate 18 /min Dante Rine DO Work Phone: [facility] Work Phone: 02-05-2021 12:01-0400 SaO2% (BldA) [Mass fraction] 100 % Dante Rine DO Work Phone: [facility] Work Phone: 02-05-2021 12:01-0400 Systolic blood pressure 148 mm[Hg] Dante Rine DO Work Phone: [facility] Work Phone: 02-05-2021 09:51-0400 Body height 180.3 cm Dante Rine DO Work Phone: [facility] Work Phone: 02-05-2021 09:51-0400 Body mass index (BMI) [Ratio] 25.8 kg/m2 Dante Rine DO Work Phone: [facility] Work Phone: 02-05-2021 09:51-0400 Body temperature 98.29 [degF] Dante Rine DO Work Phone: [facility] Work Phone: 02-05-2021 09:51-0400 Body weight 83.92 kg Dante Rine DO Work Phone: [facility] Work Phone: 01-05-2021 20:39-0400 Body height 180.3 cm Checo Armenta MD Work Phone: [facility] Work Phone: 01-05-2021 20:39-0400 Body mass index (BMI) [Ratio] 24.41 kg/m2 Checo Armenta MD Work Phone: [facility] Work Phone: 01-05-2021 20:39-0400 Body temperature 98.4 [degF] Checo Armenta MD Work Phone: [facility] Work Phone: 01-05-2021 20:39-0400 Body weight 79.38 kg Checo Armenta MD Work Phone: [facility] Work Phone: 01-05-2021 20:39-0400 Diastolic blood pressure 56 mm[Hg] Checo Armenta MD Work Phone: [facility] Work Phone: 01-05-2021 20:39-0400 Heart rate 82 /min Checo Armenta MD Work Phone: [facility] Work Phone: 01-05-2021 20:39-0400 Respiratory rate 16 /min Checo Armenta MD Work Phone: [facility] Work Phone: 01-05-2021 20:39-0400 SaO2% (BldA) [Mass fraction] 100 % Checo Armenta MD Work Phone: [facility] Work Phone: 01-05-2021 20:39-0400 Systolic blood pressure 130 mm[Hg] Checo Armenta MD Work Phone: [facility] Work Phone: 08-25-2020 08:56-0400 Diastolic blood pressure 75 mm[Hg] Dante Rine DO Work Phone: [facility] Work Phone: 08-25-2020 08:56-0400 Heart rate 55 /min Dante Rine DO Work Phone: [facility] Work Phone: 08-25-2020 08:56-0400 Respiratory rate 16 /min Dante Silveirae DO Work Phone: [facility] Work Phone: 08-25-2020 08:56-0400 SaO2% (BldA) [Mass fraction] 98 % Dante Rine DO Work Phone: [facility] Work Phone: 08-25-2020 08:56-0400 Systolic blood pressure 123 mm[Hg] Dante Rine DO Work Phone: [facility] Work Phone: 08-25-2020 04:18-0400 Body height 180.3 cm Dante Silveirae DO Work Phone: [facility] Work Phone: 08-25-2020 04:18-0400 Body mass index (BMI) [Ratio] 25.1 kg/m2 Dante Jordanae DO Work Phone: [facility] Work Phone: 08-25-2020 04:18-0400 Body temperature 97.81 [degF] Dante Silveirae DO Work Phone: [facility] Work Phone: 08-25-2020 04:18-0400 Body weight 81.65 kg Dante Silveirae DO Work Phone: [facility] Work Phone: 08-03-2020 02:36-0400 BMI (Body Mass Index) 24.41 kg/m2 Orion WANG Work Phone: 08-03-2020 02:36-0400 Body Temperature 97.5 [degF] Orion WANG Work Phone: 08-03-2020 02:36-0400 Body weight 79.38 kg Orion WANG Work Phone: 08-03-2020 02:36-0400 BP Diastolic 101 mm[Hg] Orion WANG Work Phone: 08-03-2020 02:36-0400 BP Systolic 187 mm[Hg] Orion WANG Work Phone: 08-03-2020 02:36-0400 Height 180.3 cm Orion WANG Work Phone: 08-03-2020 02:36-0400 Pulse (Heart Rate) 134 /min Orion WANG Work Phone: 08-03-2020 02:36-0400 Pulse Oximetry 100 % Orion WANG Work Phone: 08-03-2020 02:36-0400 Respiratory Rate 20 /min Orion WANG Work Phone: 02-05-2020 17:55-0400 BMI (Body Mass Index) 26.78 kg/m2 Rivas Jazmin [facility] Work Phone: 02-05-2020 17:55-0400 Body Temperature 98.3 [degF] Rivas Jazmin [facility] Work Phone: 02-05-2020 17:55-0400 Body weight 87.09 kg Rivas Jazmin [facility] Work Phone: 02-05-2020 17:55-0400 BP Diastolic 64 mm[Hg] Rivas Jazmin [facility] Work Phone: 02-05-2020 17:55-0400 BP Systolic 133 mm[Hg] Rivas Jazmin [facility] Work Phone: 02-05-2020 17:55-0400 BSA (Body Surface Area) 2.07 m2 Rivas Jazmin [facility] Work Phone: 02-05-2020 17:55-0400 Height 180.34 cm Rivas Jazmin [facility] Work Phone: 02-05-2020 17:55-0400 Pulse (Heart Rate) 54 /min Rivas Jazmin [facility] Work Phone: 02-05-2020 17:55-0400 Pulse Oximetry 97 % Rivas Jazmin [facility] Work Phone: 02-05-2020 17:55-0400 Respiratory Rate 18 /min Rivas Jazmin [facility] Work Phone: 02-05-2020 17:55-0400 0 1 Rivas Jazmin [facility] Work Phone: Encounters Encounter Date Encounter Type Care Provider Facility Start: 05-05-2023 Letter encounter Sally Matt Angeli KUO Work Phone: [facility] Start: 04-02-2023 Refill Ana napier MD Work Phone: [facility] Procedures Date Procedure Procedure Detail Performing Clinician Start: 01-08-2023 INFLUENZA VACCINE, A GE 6 MO - 64 YR, QUADRIVALENT (AFLURIA, FLULAVAL, FLUZONE) Ana Kaiser MD Work Phone: Start: 01-03-2023 Radiologic exam ches t 2 views Christiano Park APRN.MACHINE SPECIALIST Work Phone: Start: 01-03-2023 STREP A MOLECULAR (POC) [facility] Provider Start: 02-05-2021 Basic metabolic pane l calcium total Hank MILLS Work Phone: Start: 02-05-2021 Heterophile antibodi es screen Hank MILLS Work Phone: Start: 02-05-2021 Iaadiadoo streptococ cus group a Hank MILLS Work Phone: Start: 01-05-2021 Ct soft tissue neck w/contrast material Checo Armenta MD Work Phone: Start: 01-05-2021 Basic metabolic pane l calcium total Checo Armenta MD Work Phone: Start: 08-25-2020 Ct maxillofacial w/o contrast material Magy Medina PAIN MANAGEMENT PHYSICIAN - MACHINE SPECIALIST Work Phone: Start: 08-25-2020 Radex temporomandble jt opn & clsd mouth bilat Magy Medina PAIN MANAGEMENT PHYSICIAN - MACHINE SPECIALIST Work Phone: Start: 08-03-2020 Radiologic examinati on neck soft tissue Orion Varela Work Phone: Start: 09-24-2019 OPERATIVE REPORT 3m Sca nning Start: 06-09-2019 Urnls dip stick/tabl et rgnt auto w/o microscopy Yoan Peterson Work Phone: Start: 09-17-2018 End: 09-17-2018 AMALGAM ONE SURFACE PRIMARY OR PERMANENT Shannan Juarez DDS Start: 09-17-2018 End: 09-17-2018 Established Dental Patient Shannan carcamo DDS Start: 08-15-2018 End: 08-15-2018 Dental Hygienist Shirley Juarez DDS Start: 08-15-2018 End: 08-15-2018 Established Dental Patient Shannan carcamo DDS Start: 08-15-2018 End: 08-15-2018 Prophylaxis Adult Shannan Juarez DDS Start: 07-17-2018 End: 07-17-2018 BITEWING COMPLETE SERIES MIN 4 FLM Shannan Juarez DDS Start: 07-17-2018 End: 07-17-2018 Established Dental Patient Shannan carcamo DDS Start: 07-17-2018 End: 07-17-2018 PERIODIC ORAL EXAMINATION Shannan Larry DDS Extraction of wisdom tooth S byron Rose MD Mouth and face operations richard Rose MD Plan of Treatment Date Care Activity Detail Author Start: 01-27-2057 Pneumococcal 0-64 years Vaccine (2 of 2 - PPSV23) Pneumococcal 0-64 years Vaccine (2 of 2 - PPSV23) [facility] Work Phone: Start: 01-27-2042 Shingles (RZV) Vaccine (1 of 2) Shingles (RZV) Vaccine (1 of 2) [facility] Start: 01-27-2042 Shingles Vaccine (1 of 2) Shingles Vaccine (1 of 2) [facility] Work Phone: Start: 12-25-2028 DTaP/Tdap/Td vaccine (2 - Td or Tdap) DTaP/Tdap/Td vaccine (2 - Td or Tdap) [facility] Work Phone: Start: 12-25-2028 DTaP/Tdap/Td vaccine (2 - Td) DTaP/Tdap/Td vaccine (2 - Td) [facility] Work Phone: Start: 12-25-2028 Tetanus vaccination Tetanus (Td or Tdap) Booster [facility] Start: 12-25-2028 Urine microalbumin profile [facility] Start: 01-09-2024 Annual PCP Team Chronic Disease Visit Annual PCP Team Chronic Disease Visit [facility] Start: 01-09-2024 Covid-19 Vaccine (#1) Covid-19 Vaccine (#1) [facility] Immunizations Immunization Date Immunization Notes Care Provider Fa cility 01-08-2023 influenza, injectabl e, quadrivalent, contains preservative Ana Kaiser MD Work Phone: [facility] 01-08-2023 pneumococcal (PCV20) vaccine, 20 valent (PREVNAR 20) Ana Kaiser MD Work Phone: [facility] 01-08-2023 pneumococcal Conjuga te, unspecified formulation Ana Kaiser MD Work Phone: [facility] Work Phone: 06-18-2020 tuberculin skin test ; purified protein derivative solution, intradermal Sally Matt DDS Work Phone: [facility]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 note reviewed. Constitutional: General: He is awake. He is not in acute distress. Appearance: Normal appearance. He is well-developed and well-groomed. He is not ill-appearing, toxic-appearing or diaphoretic. HENT: Head: Normocephalic. Right Ear: External ear normal. Left Ear: External ear normal. Nose: Nose normal. Eyes: General: Vision grossly intact. Conjunctiva/sclera: Conjunctivae normal. Pupils: Pupils are equal, round, and reactive to light. Neck: Vascular: No JVD. Trachea: Trachea normal. Cardiovascular: Rate and Rhythm: Normal rate and regular rhythm. Pulses: Normal pulses. Heart sounds: Normal heart sounds. No murmur heard. Pulmonary: Effort: Pulmonary effort is normal. No accessory muscle usage, prolonged expiration or respiratory distress. Breath sounds: Normal breath sounds. Musculoskeletal: Cervical back: Neck supple. Skin: General: Skin is warm and dry. Capillary Refill: Capillary refill takes less than 2 seconds. Neurological: General: No focal deficit present. Mental Status: He is alert and oriented to person, place, and time. Mental status is at baseline. Psychiatric: Attention and Perception: Attention and perception normal. Mood and Affect: Mood and affect normal. Speech: Speech normal. Behavior: Behavior normal. Behavior is cooperative. Thought Content: Thought content normal. Cognition and Memory: Cognition and memory normal. Judgment: Judgment normal. ASSESSMENT/PLAN: 1. Acute URI - ICD9: 465.9, ICD10: J06.9 (primary diagnosis) - Discussed viral etiology and rationale for treatment. - Symptomatic treatment with prn analgesia - Supportive care with fluids and rest - Suspect acute URI along with reactive airway disease exacerbation. 2. Mild intermittent reactive airway disease with acute exacerbation - ICD9: 493.92, ICD10: J45.21 - Mild intermittent asthma acute excacerbation without status and no respiratory distress We will give a prednisone taper and albuterol to use for the acute issues occurring with the URI. URI presents as viral. Suspect with his smoking an underlying reactive airway disease. Start Singulair and recommended once feeling better to let us know and we can help set up PFTs. He does have an appointment tomorrow with Ana Kaiser MD, I think he could cancel that and schedule out about 4 weeks for follow up but he would like to keep it. (more content not included)... [facility] 01-07-2023 History of Present illness Narrative SUBJECTIVE Elías Leroy is a 32 year old male here today for an EC follow up. Chief Complaint Patient presents with: URI: shortness of breath, congestion and nasal drainage, cough with yellow sputum chest tightness and trouble swallowing symptoms have been on and off for the last two months HPI Elías Leroy is a 32 year old male. Here for EC follow up, seen in our EC on 01/03 for acute URI. Suspected viral cause. Negative flu and COVID. Negative strep swab. CXR with no acute findings. He does smoke. Symptoms have been on going on and off for the last two months. He has a cough, worse at night, productive for phlegm. He does feel short of breath at times. He does get wheezing. Smokes 3-4 cigarettes a day. Used to smoke more. He also notes post-nasal drainage. No sick contacts that he knows of. His medications were reviewed today and his list is now up to date. Medications Current Outpatient Medications Medication Sig predniSONE (DELTASONE) 10 mg tablet Take 2 tabs po BID for 2 days then 1 tab po BID for 2 days then 1/2 tab po BID for 2 days then 1/2 tab daily for 2 days then stop albuterol HFA (PROVENTIL HFA, VENTOLIN HFA) 90 mcg/actuation inhaler Inhale 2 Puffs as instructed every 4 hours as needed for wheezing/shortness of breath. montelukast (SINGULAIR) 10 mg tablet Take 1 tablet by mouth daily at bedtime. No current facility-administered medications for this visit. ALLERGIES Allergen Reactions Sulfa (Sulfonamide * Hives Vicodin [Hydrocodon* Itching Perioral itching ACTIVE PROBLEM LIST History of Third Molar Tooth Extraction - 02/12/2020 Arthralgia of Left Temporomandibular Joint - 02/12/2020 Facial Trauma, Initial Encounter - 02/12/2020 Social History Tobacco Use Smoking status: Some Days Types: Cigarettes Smokeless tobacco: Never Substance Use Topics Alcohol use: Yes Comment: rarely Drug use: Not Currently Review of Systems Constitutional: Negative for chills, diaphoresis, fatigue and fever. HENT: Positive for congestion, postnasal drip and rhinorrhea. Negative for sinus pressure, sinus pain and trouble swallowing. Respiratory: Positive for cough and wheezing. Negative for choking, shortness of breath and stridor. Cardiovascular: Negative. OBJECTIVE BP 120/68 Pulse 87 Wt 187 lb (84.8kg) SpO2 99% Physical Exam Vitals and nursing note reviewed. Constitutional: General: He is awake. He is not in acute distress. Appearance: Normal appearance. He is well-developed and well-groomed. He is not ill-appearing, toxic-appearing or diaphoretic. HENT: Head: Normocephalic. Right Ear: External ear normal. Left Ear: External ear normal. Nose: Nose normal. Eyes: General: Vision grossly intact. Conjunctiva/sclera: Conjunctivae normal. Pupils: Pupils are equal, round, and reactive to light. Neck: Vascular: No JVD. Trachea: Trachea normal. Cardiovascular: Rate and Rhythm: Normal rate and regular rhythm. Pulses: Normal pulses. Heart sounds: Normal heart sounds. No murmur heard. Pulmonary: Effort: Pulmonary effort is normal. No accessory muscle usage, prolonged expiration or respiratory distress. Breath sounds: Normal breath sounds. Musculoskeletal: Cervical back: Neck supple. Skin: General: Skin is warm and dry. Capillary Refill: Capillary refill takes less than 2 seconds. Neurological: General: No focal deficit present. Mental Status: He is alert and oriented to person, place, and time. Mental status is at baseline. Psychiatric: Attention and Perception: Attention and perception normal. Mood and Affect: Mood and affect normal. Speech: Speech normal. Behavior: Behavior normal. Behavior is cooperative. Thought Content: Thought content normal. Cognition and Memory: Cognition and memory normal. Judgment: Judgment normal. ASSESSMENT/PLAN: 1. Acute URI - ICD9: 465.9, ICD10: J06.9 (primary diagnosis) - Discussed viral etiology and rationale for treatment. - Symptomatic treatment with prn analgesia - Supportive care with fluids and rest - Suspect acute URI along with reactive airway disease exacerbation. 2. Mild intermittent reactive airway disease with acute exacerbation - ICD9: 493.92, ICD10: J45.21 - Mild intermittent asthma acute excacerbation without status and no respiratory distress We will give a prednisone taper and albuterol to use for the acute issues occurring with the URI. URI presents as viral. Suspect with his smoking an underlying reactive airway disease. Start Singulair and recommended once feeling better to let us know and we can help set up PFTs. He does have an appointment tomorrow with Ana Kaiser MD, I think he could cancel that and schedule out about 4 weeks for follow up but he would like to keep it. - PREDNISONE 10 MG TABLET - ALBUTEROL SULFATE HFA 90 MCG/ACTUATION AEROSOL INHALER - MONTELUKAST 10 MG TABLET Portions of this note have been entered by ancillary staff. I have reviewed and when necessary edited, so that they are an adequate record of my encounter with this patient Please note that parts of this document were created using voice recognition software and therefore may contain grammatical errors. Patient verbalizes understanding of instructions from today's visit and in agreement with treatment plan. Questions answered. Agrees to call the office if questions, concerns of issues with acute symptoms not improving or if they worsen. See diagnoses and orders for additional plan(s). Allergies and medications were reviewed, list was updated, and refills given if needed. Past medical, surgical, social, and family history reviewed and updated as appropriate. Encouraged proper diet & exercise as well as compliance with taking medications. Age-appropriate health preventative measures were discussed. Return if symptoms worsen or fail to improve, for Keep next scheduled appointment.. Orlando Maldonado APRN-SILVER documented in this encounter [facility] 01-03-2023 Note HNO ID: [id number] Author: Christiano Park APRN.CNP Service: ? Author Type: Nurse Practitioner Type: Progress Notes Filed: 01/03/2023 5:33 PM Note Text: Subjective HPI HPI Elías Leroy is a 32 year old male who presents today for CC of sob intermittent for months. St congestion, fever since today. Has tried otc medication for relief. Symptoms are worsened by nothing. Risk factors smoker. .Patient presents with: Throat Problem: feels like throat is swelling , chest tightness and sob x couple months, increased x today PAST MEDICAL HISTORY Diagnosis Date mandibular fracture 2003 No past surgical history on file. ALLERGIES Sulfa (Sulfonamide Antibiotics) and Vicodin [Hydrocodone-Acetaminophen] MEDICATIONS Cholecalciferol, Vitamin D3, 50 mcg (2,000 unit) cap Take 1 capsule by mouth once daily. (Patient not taking: Reported on 12/09/2022) fluticasone (FLONASE) 50 mcg/actuation nasal spray Use 2 Sprays in each nostril once daily. Rinse mouth after use. (Patient not taking: Reported on 12/09/2022) FAMILY HISTORY Problem Relation Age of Onset Diabetes Father Hypertension Father Social History Tobacco Use Smoking status: Some Days Types: Cigarettes Smokeless tobacco: Never Substance Use Topics Alcohol use: Yes Comment: rarely Drug use: Not Currently Review of Systems Constitutional: Positive for fever and malaise/fatigue. HENT: Positive for congestion and sore throat. Negative for ear pain and nosebleeds. Respiratory: Positive for cough and shortness of breath. Negative for wheezing. Cardiovascular: Negative for chest pain. Musculoskeletal: Negative for neck pain. Skin: Negative for itching and rash. Objective Blood pressure 176/94, pulse (!) 122, temperature 37.5 ?C (99.5 ?F), resp. rate 16, weight 81.2 kg (179 lb), SpO2 98 %. Bp recheck 146/80, hr recheck 106. Physical Exam Constitutional: General: He is not in acute distress. Appearance: He is not toxic-appearing or diaphoretic. HENT: Head: Normocephalic and atraumatic. Nose: Nose normal. Mouth/Throat: Pharynx: Uvula midline. Posterior oropharyngeal erythema present. No pharyngeal swelling, oropharyngeal exudate or uvula swelling. Eyes: General: Lids are normal. No scleral icterus. Right eye: No discharge. Left eye: No discharge. Conjunctiva/sclera: Conjunctivae normal. Pupils: Pupils are equal, round, and reactive to light. Neck: Trachea: Trachea normal. Cardiovascular: Rate and Rhythm: Normal rate and regular rhythm. Heart sounds: Normal heart sounds. Pulmonary: Effort: Pulmonary effort is normal. Breath sounds: Normal breath sounds. Musculoskeletal: Cervical back: Normal range of motion and neck supple. Lymphadenopathy: Cervical: No cervical adenopathy. Right cervical: No superficial cervical adenopathy. Left cervical: No superficial cervical adenopathy. Skin: Findings: No rash. Neurological: Mental Status: He is alert and oriented to person, place, and time. ASSESSMENT/PLAN: 1. URI, acute - ICD9: 465.9, ICD10: J06.9 (primary diagnosis) - Discussed viral etiology and rationale for treatment. - Symptomatic treatment with prn analgesia - Supportive care with fluids and rest - Follow up in 3-5 days if symptoms persist or sooner if worsening of symptoms - COVID AND INFLUENZA A/B NAAT, ROUTINE 2. Sore throat - ICD9: 462, ICD10: J02.9 Neg, viral - ALERE STREP A TEST (AG) 3. Acute cough - ICD9: 786.2, ICD10: R05.1 Xray neg - XR CHEST 2V FRONTAL/LAT IMPRESSION: No acute radiographic abnormality. Dictated by : LIZZY ZIMMER MD 4. SOB (shortness of breath) - ICD9: 786.05, ICD10: R06.02 Will schedule recheck with pcp I feel currently has uri, possibly covid If s/s become severe go to ER. Christiano Park APRN.[facility] 01-03-2023 Note HNO ID: [id number] Author: Nilda Piña RT(R) Service: ? Author Type: Riffler Tender Type: Progress Notes Filed: 01/03/2023 4:52 PM Note Text: Radiology Service Progress Note PATIENT NAME: Elías Leroy DATE OF SERVICE: January 03, 2023 TIME: 4:46 PM PATIENT IDENTITY VERIFICATION COMPLETED USING TWO (2) IDENTIFIERS: Name and Date of confirmed by patient verbally. FALL SCREENING: Has the patient had 2 falls in the last year or 1 fall with injury or currently using an Ambulatory Assistive Device (Walker, Cane, Wheelchair, Crutches, etc.)? No PATIENT GENDER DATA: Male PATIENT RELEVANT IMPLANT DATA REVIEWED: Yes RADIOLOGY DEPARTMENT: General X-ray: Exam(s) Completed: Chest X-Ray PERIPHERAL IV DATA: Not applicable SIGNED BY: RT Caroline(R) January 03, 2023 4:[address] [facility] 01-03-2023 History of Present illness Narrative Subjective HPI HPI Elías Leroy is a 32 year old male who presents today for CC of sob intermittent for months. St congestion, fever since today. Has tried otc medication for relief. Symptoms are worsened by nothing. Risk factors smoker. .Patient presents with: Throat Problem: feels like throat is swelling , chest tightness and sob x couple months, increased x today PAST MEDICAL HISTORY Diagnosis Date mandibular fracture 2003 No past surgical history on file. ALLERGIES Sulfa (Sulfonamide Antibiotics) and Vicodin [Hydrocodone-Acetaminophen] MEDICATIONS Cholecalciferol, Vitamin D3, 50 mcg (2,000 unit) cap Take 1 capsule by mouth once daily. (Patient not taking: Reported on 12/09/2022) fluticasone (FLONASE) 50 mcg/actuation nasal spray Use 2 Sprays in each nostril once daily. Rinse mouth after use. (Patient not taking: Reported on 12/09/2022) FAMILY HISTORY Problem Relation Age of Onset Diabetes Father Hypertension Father Social History Tobacco Use Smoking status: Some Days Types: Cigarettes Smokeless tobacco: Never Substance Use Topics Alcohol use: Yes Comment: rarely Drug use: Not Currently Review of Systems Constitutional: Positive for fever and malaise/fatigue. HENT: Positive for congestion and sore throat. Negative for ear pain and nosebleeds. Respiratory: Positive for cough and shortness of breath. Negative for wheezing. Cardiovascular: Negative for chest pain. Musculoskeletal: Negative for neck pain. Skin: Negative for itching and rash. Objective Blood pressure 176/94, pulse (!) 122, temperature 37.5 C (99.5 F), resp. rate 16, weight 81.2 kg (179 lb), SpO2 98 %. Bp recheck 146/80, hr recheck 106. Physical Exam Constitutional: General: He is not in acute distress. Appearance: He is not toxic-appearing or diaphoretic. HENT: Head: Normocephalic and atraumatic. Nose: Nose normal. Mouth/Throat: Pharynx: Uvula midline. Posterior oropharyngeal erythema present. No pharyngeal swelling, oropharyngeal exudate or uvula swelling. Eyes: General: Lids are normal. No scleral icterus. Right eye: No discharge. Left eye: No discharge. Conjunctiva/sclera: Conjunctivae normal. Pupils: Pupils are equal, round, and reactive to light. Neck: Trachea: Trachea normal. Cardiovascular: Rate and Rhythm: Normal rate and regular rhythm. Heart sounds: Normal heart sounds. Pulmonary: Effort: Pulmonary effort is normal. Breath sounds: Normal breath sounds. Musculoskeletal: Cervical back: Normal range of motion and neck supple. Lymphadenopathy: Cervical: No cervical adenopathy. Right cervical: No superficial cervical adenopathy. Left cervical: No superficial cervical adenopathy. Skin: Findings: No rash. Neurological: Mental Status: He is alert and oriented to person, place, and time. ASSESSMENT/PLAN: 1. URI, acute - ICD9: 465.9, ICD10: J06.9 (primary diagnosis) - Discussed viral etiology and rationale for treatment. - Symptomatic treatment with prn analgesia - Supportive care with fluids and rest - Follow up in 3-5 days if symptoms persist or sooner if worsening of symptoms - COVID & INFLUENZA A/B NAAT, ROUTINE 2. Sore throat - ICD9: 462, ICD10: J02.9 Neg, viral - ALERE STREP A TEST (AG) 3. Acute cough - ICD9: 786.2, ICD10: R05.1 Xray neg - XR CHEST 2V FRONTAL/LAT IMPRESSION: No acute radiographic abnormality. Dictated by : LIZZY ZIMMER MD 4. SOB (shortness of breath) - ICD9: 786.05, ICD10: R06.02 Will schedule recheck with pcp I feel currently has uri, possibly covid If s/s become severe go to ER. Christiano Park APRN.MACHINE SPECIALIST documented in this encounter [facility] 12-09-2022 Note HNO ID: [id number] Author: Zahida Nelson APRN.SILVER Service: ? Author Type: Nurse Practitioner Type: Progress Notes Filed: 12/09/2022 2:44 PM Note Text: Subjective The history is provided by the patient. No crime scene examiner was used. HPI Elías Leroy is a 32 year old male who presents today for CC of boil on hairline of pubic bone. This started in past 3 days, open and draining. He has not used any treatment. H/o shaving, folliculitis BP 146/84 Pulse 118 Temp 37.7 ?C (99.9 ?F) (Tympanic) Resp 16 Wt 82.4 kg (181 lb 9.6 oz) SpO2 96% BMI 26.06 kg/m? Social History Tobacco Use Smoking status: Some Days Types: Cigarettes Smokeless tobacco: Never Substance Use Topics Alcohol use: Yes Comment: rarely Drug use: Not Currently PAST MEDICAL HISTORY Diagnosis Date mandibular fracture 2003 I have confirmed and edited as necessary, the [facility] Review of Systems Constitutional: Negative for chills and fever. Musculoskeletal: Negative for joint pain and myalgias. Skin: Negative for itching and rash. Redness, swelling purulent drainage All other systems reviewed and are negative. Objective Physical Exam Vitals and nursing note reviewed. Pulmonary: Effort: Pulmonary effort is normal. Skin: General: Skin is warm and dry. Findings: Erythema and rash present. Rash is nodular and pustular. Comments: Open and draining, culture done Neurological: Mental Status: He is alert and oriented to person, place, and time. Psychiatric: Mood and Affect: Affect normal. ASSESSMENT/PLAN: 1. Boil - ICD9: 680.9, ICD10: L02.92 Appears to abscess/boil that ruptured Doxycycline as ordered, discussed sun sensitivity Wound culture done Advise to follow up with dermatology due to recurrance. - ABSCESS AND WOUND CULTURE WITH GRAM STAIN Diagnosis and treatment plan were discussed and questions were answered to the patient's satisfaction. Pt acknowledged understanding of concepts and follow up plan. Specific signs and symptoms that would indicate the need for higher level of care were discussed in detail warranting prompt ER evaluation. Zahida Nelson APRN.[facility] 12-09-2022 History of Present illness Narrative Images from the original note were not included. Subjective The history is provided by the patient. No crime scene examiner was used. HPI Elías Leroy is a 32 year old male who presents today for CC of boil on hairline of pubic bone. This started in past 3 days, open and draining. He has not used any treatment. H/o shaving, folliculitis BP 146/84 Pulse 118 Temp 37.7 C (99.9 F) (Tympanic) Resp 16 Wt 82.4 kg (181 lb 9.6 oz) SpO2 96% BMI 26.06 kg/m Social History Tobacco Use Smoking status: Some Days Types: Cigarettes Smokeless tobacco: Never Substance Use Topics Alcohol use: Yes Comment: rarely Drug use: Not Currently PAST MEDICAL HISTORY Diagnosis Date mandibular fracture 2003 I have confirmed and edited as necessary, the [facility] Review of Systems Constitutional: Negative for chills and fever. Musculoskeletal: Negative for joint pain and myalgias. Skin: Negative for itching and rash. Redness, swelling purulent drainage All other systems reviewed and are negative. Objective Physical Exam Vitals and nursing note reviewed. Pulmonary: Effort: Pulmonary effort is normal. Skin: General: Skin is warm and dry. Findings: Erythema and rash present. Rash is nodular and pustular. Comments: Open and draining, culture done Neurological: Mental Status: He is alert and oriented to person, place, and time. Psychiatric: Mood and Affect: Affect normal. ASSESSMENT/PLAN: 1. Boil - ICD9: 680.9, ICD10: L02.92 Appears to abscess/boil that ruptured Doxycycline as ordered, discussed sun sensitivity Wound culture done Advise to follow up with dermatology due to recurrance. - ABSCESS AND WOUND CULTURE WITH GRAM STAIN Diagnosis and treatment plan were discussed and questions were answered to the patient's satisfaction. Pt acknowledged understanding of concepts and follow up plan. Specific signs and symptoms that would indicate the need for higher level of care were discussed in detail warranting prompt ER evaluation. Zahida Nelson APRN.SILVER documented in this encounter [facility] 10-30-2022 Note HNO ID: [id number] Author: Duong Burton APRN.CNP Service: ? Author Type: Nurse Practitioner Type: Progress Notes Filed: 10/30/2022 4:02 PM Note Text: Subjective HPI Nontoxic-appearing male presents urgent care chief complaint transient arm pain. Also states he has some numbness and tingling that comes and goes right hand. No OTC medication use no related trauma. Denies any fever body aches chills productive cough chest pain shortness of breath pleuritic pain hemoptysis nausea vomiting abdominal pain change in bowel or bladder habits. Past medical history prescription medication use and allergies reviewed. .Patient presents with: right arm pain: Right arm pain and numbness x 3 days PAST MEDICAL HISTORY Diagnosis Date mandibular fracture 2003 History reviewed. No pertinent surgical history. ALLERGIES Sulfa (Sulfonamide Antibiotics) and Vicodin [Hydrocodone-Acetaminophen] MEDICATIONS Cholecalciferol, Vitamin D3, 50 mcg (2,000 unit) cap Take 1 capsule by mouth once daily. fluticasone (FLONASE) 50 mcg/actuation nasal spray Use 2 Sprays in each nostril once daily. Rinse mouth after use. FAMILY HISTORY Problem Relation Age of Onset Diabetes Father Hypertension Father Social History Tobacco Use Smoking status: Some Days Types: Cigarettes Smokeless tobacco: Never Substance Use Topics Alcohol use: Yes Comment: rarely Drug use: Not Currently BP 136/84 Pulse 78 Temp 37 ?C (98.6 ?F) (Tympanic) Resp 16 Wt 84.7 kg (186 lb 12.8 oz) SpO2 96% BMI 26.80 kg/m? Review of Systems Constitutional: Negative for chills, fever and malaise/fatigue. HENT: Negative for congestion, ear discharge, ear pain, sinus pain and sore throat. Eyes: Negative for blurred vision, pain, discharge and redness. Respiratory: Negative for cough, hemoptysis, sputum production, shortness of breath, wheezing and stridor. Cardiovascular: Negative for chest pain. Gastrointestinal: Negative for abdominal pain, diarrhea, nausea and vomiting. Musculoskeletal: Negative for myalgias. Skin: Negative for itching and rash. Neurological: Negative for dizziness and headaches. Objective Physical Exam Constitutional: General: He is not in acute distress. Appearance: He is not toxic-appearing. HENT: Head: Normocephalic. Nose: Nose normal. Eyes: Pupils: Pupils are equal, round, and reactive to light. Cardiovascular: Rate and Rhythm: Normal rate. Pulmonary: Effort: Pulmonary effort is normal. No respiratory distress. Breath sounds: No wheezing or rales. Musculoskeletal: Right shoulder: Normal. Right upper arm: Normal. Right elbow: Normal. Right forearm: Normal. Right wrist: Normal. Right hand: Normal. Cervical back: Normal range of motion. Comments: Neurovascular intact no breaks in skin. States he does have numbness and tingling that comes and goes to his fourth and fifth digit right hand. Skin: General: Skin is warm and dry. Neurological: General: No focal deficit present. Mental Status: He is alert. ASSESSMENT/PLAN: 1. 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 Treat conservatively at this point. Red flags proper elevation discussed. Patient was educated on supportive therapies. Patient will follow up with primary care provider as needed. Patient was instructed to immediately proceed to emergency room for any new, worsening, or symptoms lasting longer than anticipated. The patient's clinical presentation is otherwise unremarkable at this time. Based on exam and clinical finding, the patient is stable for discharge. Plan of care was discussed with patient. Patient verbalizes understanding and agrees to plan of care. This note was generated using [email or web address].sk software. It may contain errors in wording, punctuation, or spelling. Duong Burton APRN.[facility] 10-30-2022 History of Present illness Narrative Subjective HPI Nontoxic-appearing male presents urgent care chief complaint transient arm pain. Also states he has some numbness and tingling that comes and goes right hand. No OTC medication use no related trauma. Denies any fever body aches chills productive cough chest pain shortness of breath pleuritic pain hemoptysis nausea vomiting abdominal pain change in bowel or bladder habits. Past medical history prescription medication use and allergies reviewed. .Patient presents with: right arm pain: Right arm pain and numbness x 3 days PAST MEDICAL HISTORY Diagnosis Date mandibular fracture 2003 History reviewed. No pertinent surgical history. ALLERGIES Sulfa (Sulfonamide Antibiotics) and Vicodin [Hydrocodone-Acetaminophen] MEDICATIONS Cholecalciferol, Vitamin D3, 50 mcg (2,000 unit) cap Take 1 capsule by mouth once daily. fluticasone (FLONASE) 50 mcg/actuation nasal spray Use 2 Sprays in each nostril once daily. Rinse mouth after use. FAMILY HISTORY Problem Relation Age of Onset Diabetes Father Hypertension Father Social History Tobacco Use Smoking status: Some Days Types: Cigarettes Smokeless tobacco: Never Substance Use Topics Alcohol use: Yes Comment: rarely Drug use: Not Currently BP 136/84 Pulse 78 Temp 37 C (98.6 F) (Tympanic) Resp 16 Wt 84.7 kg (186 lb 12.8 oz) SpO2 96% BMI 26.80 kg/m Review of Systems Constitutional: Negative for chills, fever and malaise/fatigue. HENT: Negative for congestion, ear discharge, ear pain, sinus pain and sore throat. Eyes: Negative for blurred vision, pain, discharge and redness. Respiratory: Negative for cough, hemoptysis, sputum production, shortness of breath, wheezing and stridor. Cardiovascular: Negative for chest pain. Gastrointestinal: Negative for abdominal pain, diarrhea, nausea and vomiting. Musculoskeletal: Negative for myalgias. Skin: Negative for itching and rash. Neurological: Negative for dizziness and headaches. Objective Physical Exam Constitutional: General: He is not in acute distress. Appearance: He is not toxic-appearing. HENT: Head: Normocephalic. Nose: Nose normal. Eyes: Pupils: Pupils are equal, round, and reactive to light. Cardiovascular: Rate and Rhythm: Normal rate. Pulmonary: Effort: Pulmonary effort is normal. No respiratory distress. Breath sounds: No wheezing or rales. Musculoskeletal: Right shoulder: Normal. Right upper arm: Normal. Right elbow: Normal. Right forearm: Normal. Right wrist: Normal. Right hand: Normal. Cervical back: Normal range of motion. Comments: Neurovascular intact no breaks in skin. States he does have numbness and tingling that comes and goes to his fourth and fifth digit right hand. Skin: General: Skin is warm and dry. Neurological: General: No focal deficit present. Mental Status: He is alert. ASSESSMENT/PLAN: 1. 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 Treat conservatively at this point. Red flags proper elevation discussed. Patient was educated on supportive therapies. Patient will follow up with primary care provider as needed. Patient was instructed to immediately proceed to emergency room for any new, worsening, or symptoms lasting longer than anticipated. The patient's clinical presentation is otherwise unremarkable at this time. Based on exam and clinical finding, the patient is stable for discharge. Plan of care was discussed with patient. Patient verbalizes understanding and agrees to plan of care. This note was generated using [email or web address].sk software. It may contain errors in wording, punctuation, or spelling. Duong Burton APRN.MACHINE SPECIALIST documented in this encounter [facility] 06-29-2022 Miscellaneous Notes Attempted to reach patient x 3 with message stating Your call did not go though please try again. My Chart message sent to patient with below recommendations. Please call patient and let him know labs are back and vitamin D is low. I sent in a daily vitamin D supplement. Otherwise labs are stable. documented in this encounter [facility] 06-26-2022 Note HNO ID: [id number] Author: Orlando Maldonado APRN.CNP Service: ? Author Type: Nurse Practitioner Type: Progress Notes Filed: 06/26/2022 11:47 AM Note Text: CHIEF COMPLAINT: Patient presents with: Establish Care HISTORY: Elías Leroy is a 32 year old male who presents 06/26/2022 to establish care and for his Yearly Physical Exam. Previously seen in our [facility]. They are here today for a wellness exam. Generally feels well and does not have complaints. Does wear a seatbelt when riding in a car. Does have smoke detectors and a carbon monoxide detector in the home. Is able to complete ADL's with independence. During the visit he does answer questions but is drowsy and falling asleep at times. He states he had a ride to today's visit, he did not drive himself. States sometimes not sleeping well and just tired. Denies any substance use recently. Some depression, denies thoughts of self harm, harming others or suicide. No recent PCP. No significant medical history. Other Providers: No other providers. Depression Screen Q1: Over the past two weeks, have you felt down, depressed or hopeless? Yes Q2: Over the past two weeks, have you felt little interest or pleasure in doing things? Yes Home status: lives with family Current job: stays at home Current exercise habits: no regular exercise Dietary habits: does not eat healthy Hearing difficulties: no Safe in current home environment: Yes Tobacco: current ETOH: rare Family History Cancer Colon: no Prostate: no Past Medical History: PAST MEDICAL HISTORY Diagnosis Date mandibular fracture 2004 Family Medical History: FAMILY HISTORY Problem Relation Age of Onset Diabetes Father Hypertension Father Social History: Social History Tobacco Use Smoking status: Some Days Types: Cigarettes Smokeless tobacco: Never Substance Use Topics Alcohol use: Yes Comment: rarely Drug use: Not Currently Allergies: ALLERGIES Allergen Reactions Sulfa (Sulfonamide * Hives Vicodin [Hydrocodon* Itching Perioral itching Medications: Current Outpatient Medications Medication Sig fluticasone (FLONASE) 50 mcg/actuation nasal spray Use 2 Sprays in each nostril once daily. Rinse mouth after use. No current facility-administered medications for this visit. Chronic Problem List: ACTIVE PROBLEM LIST History of Third Molar Tooth Extraction - 02/12/2020 Arthralgia of Left Temporomandibular Joint - 02/12/2020 Facial Trauma, Initial Encounter - 02/12/2020 Review of Systems Review of Systems Respiratory: Negative. Cardiovascular: Negative. Psychiatric/Behavioral: Positive for decreased concentration, dysphoric mood and sleep disturbance. Negative for agitation, confusion, hallucinations, self-injury and suicidal ideas. The patient is nervous/anxious. OBJECTIVE BP 100/80 Pulse 107 Ht 5' 10 (1.78m) Wt 176 lb (79.8kg) SpO2 98% BMI 25.25 kg/(m2). Physical Exam Vitals and nursing note reviewed. Constitutional: General: He is awake. He is not in acute distress. Appearance: Normal appearance. He is well-developed and well-groomed. He is not ill-appearing, toxic-appearing or diaphoretic. Comments: Drowsy, at times falls asleep but wakes easily HENT: Head: Normocephalic. Right Ear: External ear normal. Left Ear: External ear normal. Nose: Nose normal. Eyes: General: Vision grossly intact. Conjunctiva/sclera: Conjunctivae normal. Pupils: Pupils are equal, round, and reactive to light. Neck: Vascular: No JVD. Trachea: Trachea normal. Cardiovascular: Rate and Rhythm: Normal rate and regular rhythm. Pulses: Normal pulses. Heart sounds: Normal heart sounds. No murmur heard. Pulmonary: Effort: Pulmonary effort is normal. No accessory muscle usage, prolonged expiration or respiratory distress. Breath sounds: Normal breath sounds. Musculoskeletal: Cervical back: Neck supple. Skin: General: Skin is warm and dry. Capillary Refill: Capillary refill takes less than 2 seconds. Neurological: General: No focal deficit present. Mental Status: He is oriented to person, place, and time and easily aroused. Mental status is at baseline. Psychiatric: Mood and Affect: Mood is depressed. Affect is flat. Speech: Speech is delayed. Behavior: Behavior is slowed. Behavior is cooperative. Thought Content: Thought content normal. Cognition and Memory: Cognition and memory normal. Judgment: Judgment normal. ASSESSMENT/PLAN: 1. Wellness examination - ICD9: V70.0, ICD10: Z00.00 (primary diagnosis) - Counseled on healthy diet and regular exercise - Smoking cessation encouraged; discussed risks to health and quitting strategies. Patient is not ready to quit - Depression screening tool completed and reviewed with patient. Based on score and interview, patient is at risk for depression and recommended no further intervention at this time. Declines treatment, states depression is agnieszka (more content not included)... [facility] 06-26-2022 History of Present illness Narrative CHIEF COMPLAINT: Patient presents with: Establish Care HISTORY: Elías Leroy is a 32 year old male who presents 06/26/2022 to establish care and for his Yearly Physical Exam. Previously seen in our . They are here today for a wellness exam. Generally feels well and does not have complaints. Does wear a seatbelt when riding in a car. Does have smoke detectors and a carbon monoxide detector in the home. Is able to complete ADL's with independence. During the visit he does answer questions but is drowsy and falling asleep at times. He states he had a ride to today's visit, he did not drive himself. States sometimes not sleeping well and just tired. Denies any substance use recently. Some depression, denies thoughts of self harm, harming others or suicide. No recent PCP. No significant medical history. Other Providers: No other providers. Depression Screen Q1: Over the past two weeks, have you felt down, depressed or hopeless? Yes Q2: Over the past two weeks, have you felt little interest or pleasure in doing things? Yes Home status: lives with family Current job: stays at home Current exercise habits: no regular exercise Dietary habits: does not eat healthy Hearing difficulties: no Safe in current home environment: Yes Tobacco: current ETOH: rare Family History Cancer Colon: no Prostate: no Past Medical History: PAST MEDICAL HISTORY Diagnosis Date mandibular fracture 2004 Family Medical History: FAMILY HISTORY Problem Relation Age of Onset Diabetes Father Hypertension Father Social History: Social History Tobacco Use Smoking status: Some Days Types: Cigarettes Smokeless tobacco: Never Substance Use Topics Alcohol use: Yes Comment: rarely Drug use: Not Currently Allergies: ALLERGIES Allergen Reactions Sulfa (Sulfonamide * Hives Vicodin [Hydrocodon* Itching Perioral itching Medications: Current Outpatient Medications Medication Sig fluticasone (FLONASE) 50 mcg/actuation nasal spray Use 2 Sprays in each nostril once daily. Rinse mouth after use. No current facility-administered medications for this visit. Chronic Problem List: ACTIVE PROBLEM LIST History of Third Molar Tooth Extraction - 02/12/2020 Arthralgia of Left Temporomandibular Joint - 02/12/2020 Facial Trauma, Initial Encounter - 02/12/2020 Review of Systems Review of Systems Respiratory: Negative. Cardiovascular: Negative. Psychiatric/Behavioral: Positive for decreased concentration, dysphoric mood and sleep disturbance. Negative for agitation, confusion, hallucinations, self-injury and suicidal ideas. The patient is nervous/anxious. OBJECTIVE BP 100/80 Pulse 107 Ht 5' 10 (1.78m) Wt 176 lb (79.8kg) SpO2 98% BMI 25.25 kg/(m^2). Physical Exam Vitals and nursing note reviewed. Constitutional: General: He is awake. He is not in acute distress. Appearance: Normal appearance. He is well-developed and well-groomed. He is not ill-appearing, toxic-appearing or diaphoretic. Comments: Drowsy, at times falls asleep but wakes easily HENT: Head: Normocephalic. Right Ear: External ear normal. Left Ear: External ear normal. Nose: Nose normal. Eyes: General: Vision grossly intact. Conjunctiva/sclera: Conjunctivae normal. Pupils: Pupils are equal, round, and reactive to light. Neck: Vascular: No JVD. Trachea: Trachea normal. Cardiovascular: Rate and Rhythm: Normal rate and regular rhythm. Pulses: Normal pulses. Heart sounds: Normal heart sounds. No murmur heard. Pulmonary: Effort: Pulmonary effort is normal. No accessory muscle usage, prolonged expiration or respiratory distress. Breath sounds: Normal breath sounds. Musculoskeletal: Cervical back: Neck supple. Skin: General: Skin is warm and dry. Capillary Refill: Capillary refill takes less than 2 seconds. Neurological: General: No focal deficit present. Mental Status: He is oriented to person, place, and time and easily aroused. Mental status is at baseline. Psychiatric: Mood and Affect: Mood is depressed. Affect is flat. Speech: Speech is delayed. Behavior: Behavior is slowed. Behavior is cooperative. Thought Content: Thought content normal. Cognition and Memory: Cognition and memory normal. Judgment: Judgment normal. ASSESSMENT/PLAN: 1. Wellness examination - ICD9: V70.0, ICD10: Z00.00 (primary diagnosis) - Counseled on healthy diet and regular exercise - Smoking cessation encouraged; discussed risks to health and quitting strategies. Patient is not ready to quit - Depression screening tool completed and reviewed with patient. Based on score and interview, patient is at risk for depression and recommended no further intervention at this time. Declines treatment, states depression is manageable. - COMP METABOLIC PANEL - LIPID PANEL BASIC - CBC + DIFF 2. Obtunded - ICD9: 780.09, ICD10: R40.1 Very drowsy during the visit, falls asleep at times, arouses easily. Check labs and advised will check a tox screen as well. He denies any recent drug use. 3. Drowsy - ICD9: 780.09, ICD10: R40.0 - COMP METABOLIC PANEL - CBC + DIFF - IRON + TIBC - TSH BLD - VITAMIN D 25 HYDROXY - TOXICOLOGY PANEL BLD 4. Other fatigue - ICD9: 780.79, ICD10: R53.83 - COMP METABOLIC PANEL - CBC + DIFF - IRON + TIBC - TSH BLD - VITAMIN D 25 HYDROXY 5. Depression, unspecified depression type - ICD9: 311, ICD10: F32.A Depression Screening 06/26/2022 PHQ-2 Score 3 Depression screening tool completed and reviewed. Based on score and interview, patient is at risk for depression. Screening tool discussed with patient, and I recommended no further intervention at this time. Declines further treatment - DEPRESSION SCREENING/ASSESSMENT 6. Vitamin D deficiency - ICD9: 268.9, ICD10: E55.9 - VITAMIN D 25 HYDROXY 7. Tobacco use disorder - ICD9: 305.1, ICD10: F17.200 - Cessation encouraged. - Physiologic and physical aspects of tobacco addiction as well as strategies for quitting were discussed. - Counseling was given focusing on the harmful effects of this addiction especially given the patient's medical condition(s) which will be worsened because of the chemicals in tobacco. Declines wellbutrin script 8. Screening for lipid disorders - ICD9: V77.91, ICD10: Z13.220 - LIPID PANEL BASIC 9. Special screening examination for viral disease - ICD9: V73.99, ICD10: Z11.59 - HEP C AB IA W/CONF SCRN 10. Screening for HIV (human immunodeficiency virus) - ICD9: V73.89, ICD10: Z11.4 - HIV 1 2 COMBO(AG/AB),WITH REFLEX TO DIFFERENTIATION 11. Encounter to establish care - ICD9: V65.8, ICD10: Z76.89 Wellness exam completed. Health maintenance reviewed and updated. Chronic conditions and medications reviewed and updated as needed. Encouraged regular physical activity as tolerated, Healthy diet, and health promoting lifestyle. Encouraged regular eye doctor and dental visits. Portions of this note have been entered by ancillary staff. I have reviewed and when necessary edited, so that they are an adequate record of my encounter with this patient Please note that parts of this document were created using [employer] and therefore may contain grammatical errors. Patient verbalizes understanding of instructions from today's visit and in agreement with treatment plan. Questions answered. Agrees to call the office if questions, concerns or issues with acute symptoms not improving or if they worsen. See diagnoses and orders for additional plan(s). Allergies and medications were reviewed, list was updated, and refills given if needed. Past medical, surgical, social, and family history reviewed and updated as appropriate. Encouraged proper diet & exercise as well as compliance with taking medications. Age-appropriate health preventative measures were discussed. Return in about 6 months (around 12/27/2022). Orlando Maldonado APRN-SILVER documented in this encounter [facility] 06-17-2022 Note HNO ID: [id number] Author: Jasmine Jj PA-C Service: ? Author Type: Physician Project Manager Senior Type: Progress Notes Filed: 06/17/2022 2:57 PM Note Text: This note was created using NoteWriter. Subjective Elías Leroy is a 32 year old male. HPI Patient presents with a chief complaint of sinus congestion. He states he has had congestion chronically for several months. He feels like sometimes when he swallows it hurts in his nose and sometimes when he eats he gets food that comes out of his nose. He did have a broken jaw about 12 years ago but no other facial trauma per the patient. He has had TMJ problems before but really does not feel like that. He has had some postnasal drip as well. Was seen on the eighth and treated with amoxicillin for strep throat. That had improved. He had seen ENT several years ago for his TMJ. Review of Systems Constitutional: Negative. HENT: Positive for congestion, postnasal drip and sinus pressure. Respiratory: Negative for cough. Cardiovascular: Negative. Gastrointestinal: Negative. Genitourinary: Negative. Musculoskeletal: Negative. All other systems reviewed and are negative. PAST MEDICAL HISTORY Diagnosis Date mandibular fracture 2003 Current Outpatient Medications Medication Sig Dispense Refill fluticasone (FLONASE) 50 mcg/actuation nasal spray Use 2 Sprays in each nostril once daily. Rinse mouth after use. 1 Each 0 doxycycline monohydrate 100 mg tablet Take 1 tablet by mouth twice daily for 5 days. 10 tablet 0 omeprazole (PRILOSEC) 40 mg capsule Take 1 capsule by mouth twice daily. (Patient not taking: Reported on 05/30/2022) 60 capsule 0 fluticasone (FLONASE ALLERGY RELIEF) 50 mcg/actuation nasal spray Use 1 [place] in each nostril once daily. (Patient not taking: Reported on 05/30/2022) 16 g 0 No current facility-administered medications for this visit. No past surgical history on file. FAMILY HISTORY Problem Relation Age of Onset Diabetes Father Hypertension Father Social History Tobacco Use Smoking status: Some Days Types: Cigarettes Smokeless tobacco: Never Objective BP 140/92 Pulse 70 Temp 36.8 ?C (98.2 ?F) Resp 18 Wt 79.7 kg (175 lb 9.6 oz) SpO2 98% BMI 24.49 kg/m? Physical Exam Vitals reviewed. Constitutional: Appearance: Normal appearance. HENT: Head: Normocephalic and atraumatic. Right Ear: Tympanic membrane, ear canal and external ear normal. Left Ear: Tympanic membrane, ear canal and external ear normal. Nose: Congestion present. Right Sinus: Maxillary sinus tenderness present. Left Sinus: Maxillary sinus tenderness present. Mouth/Throat: Mouth: Mucous membranes are moist. Pharynx: Oropharynx is clear. Cardiovascular: Rate and Rhythm: Normal rate and regular rhythm. Heart sounds: Normal heart sounds. Pulmonary: Effort: Pulmonary effort is normal. Breath sounds: Normal breath sounds. Musculoskeletal: Cervical back: Neck supple. Lymphadenopathy: Cervical: No cervical adenopathy. Skin: General: Skin is warm and dry. Findings: No rash. Neurological: Mental Status: He is alert. Assessment and Plan ASSESSMENT/PLAN: 1. Sinus congestion - ICD9: 478.19, ICD10: R09.81 Patient has sinus pressure and congestion for several weeks, we will treat with doxycycline and given Flonase. He feels like sometimes he has food that comes out of his nose when he swallows, I feel he does need to see ENT and may need a nasal scope. I did give him a referral and he will follow-up with [facility]. - CONSULT TO ENT Jasmine Jj PA-C [facility] 06-17-2022 History of Present illness Narrative This note was created using Giggemter. Subjective Elías Leroy is a 32 year old male. HPI Patient presents with a chief complaint of sinus congestion. He states he has had congestion chronically for several months. He feels like sometimes when he swallows it hurts in his nose and sometimes when he eats he gets food that comes out of his nose. He did have a broken jaw about 12 years ago but no other facial trauma per the patient. He has had TMJ problems before but really does not feel like that. He has had some postnasal drip as well. Was seen on the eighth and treated with amoxicillin for strep throat. That had improved. He had seen ENT several years ago for his TMJ. Review of Systems Constitutional: Negative. HENT: Positive for congestion, postnasal drip and sinus pressure. Respiratory: Negative for cough. Cardiovascular: Negative. Gastrointestinal: Negative. Genitourinary: Negative. Musculoskeletal: Negative. All other systems reviewed and are negative. PAST MEDICAL HISTORY Diagnosis Date mandibular fracture 2003 Current Outpatient Medications Medication Sig Dispense Refill fluticasone (FLONASE) 50 mcg/actuation nasal spray Use 2 Sprays in each nostril once daily. Rinse mouth after use. 1 Each 0 doxycycline monohydrate 100 mg tablet Take 1 tablet by mouth twice daily for 5 days. 10 tablet 0 omeprazole (PRILOSEC) 40 mg capsule Take 1 capsule by mouth twice daily. (Patient not taking: Reported on 05/30/2022) 60 capsule 0 fluticasone (FLONASE ALLERGY RELIEF) 50 mcg/actuation nasal spray Use 1 [place] in each nostril once daily. (Patient not taking: Reported on 05/30/2022) 16 g 0 No current facility-administered medications for this visit. No past surgical history on file. FAMILY HISTORY Problem Relation Age of Onset Diabetes Father Hypertension Father Social History Tobacco Use Smoking status: Some Days Types: Cigarettes Smokeless tobacco: Never Objective BP 140/92 Pulse 70 Temp 36.8 C (98.2 F) Resp 18 Wt 79.7 kg (175 lb 9.6 oz) SpO2 98% BMI 24.49 kg/m Physical Exam Vitals reviewed. Constitutional: Appearance: Normal appearance. HENT: Head: Normocephalic and atraumatic. Right Ear: Tympanic membrane, ear canal and external ear normal. Left Ear: Tympanic membrane, ear canal and external ear normal. Nose: Congestion present. Right Sinus: Maxillary sinus tenderness present. Left Sinus: Maxillary sinus tenderness present. Mouth/Throat: Mouth: Mucous membranes are moist. Pharynx: Oropharynx is clear. Cardiovascular: Rate and Rhythm: Normal rate and regular rhythm. Heart sounds: Normal heart sounds. Pulmonary: Effort: Pulmonary effort is normal. Breath sounds: Normal breath sounds. Musculoskeletal: Cervical back: Neck supple. Lymphadenopathy: Cervical: No cervical adenopathy. Skin: General: Skin is warm and dry. Findings: No rash. Neurological: Mental Status: He is alert. Assessment and Plan ASSESSMENT/PLAN: 1. Sinus congestion - ICD9: 478.19, ICD10: R09.81 Patient has sinus pressure and congestion for several weeks, we will treat with doxycycline and given Flonase. He feels like sometimes he has food that comes out of his nose when he swallows, I feel he does need to see ENT and may need a nasal scope. I did give him a referral and he will follow-up with Matt ROTH. - CONSULT TO ENT Jasmine Jj PA-C documented in this encounter [facility] 05-30-2022 Note HNO ID: [id number] Author: GENE Chapin Service: ? Author Type: Physician Project Manager Senior Type: Progress Notes Filed: 05/30/2022 11:11 AM Note Text: This note was created using Carousellriter. Subjective Elías Leroy is a 32 year old male. HPI 32-year-old male presents for sore throat, congestion and sinus pressure x1 week. Patient states he has had a sore throat for a few weeks now. He has had runny nose and sinus congestion for 1 to 2 weeks as well. States his kids are sick with strep throat. No fevers. No cough. No vomiting or diarrhea. PAST MEDICAL HISTORY Diagnosis Date mandibular fracture 2003 No past surgical history on file. ALLERGIES Sulfa (Sulfonamide Antibiotics) and Vicodin [Hydrocodone-Acetaminophen] MEDICATIONS omeprazole (PRILOSEC) 40 mg capsule Take 1 capsule by mouth twice daily. (Patient not taking: Reported on 05/30/2022) fluticasone (FLONASE ALLERGY RELIEF) 50 mcg/actuation nasal spray Use 1 [place] in each nostril once daily. (Patient not taking: Reported on 05/30/2022) FAMILY HISTORY Problem Relation Age of Onset Diabetes Father Hypertension Father Social History Tobacco Use Smoking status: Some Days Types: Cigarettes Smokeless tobacco: Never Review of Systems Constitutional: Negative for chills and fever. HENT: Positive for congestion, sinus pressure, sinus pain and sore throat. Respiratory: Negative for cough and shortness of breath. Gastrointestinal: Negative for diarrhea and vomiting. Objective BP 128/72 Pulse 106 Temp 36.9 ?C (98.4 ?F) Resp 16 Wt 79.6 kg (175 lb 6.4 oz) SpO2 98% BMI 24.46 kg/m? Physical Exam Vitals and nursing note reviewed. Constitutional: General: He is not in acute distress. Appearance: Normal appearance. He is not toxic-appearing. HENT: Right Ear: Tympanic membrane and ear canal normal. Left Ear: Tympanic membrane and ear canal normal. Nose: Congestion present. Mouth/Throat: Mouth: Mucous membranes are moist. Pharynx: Uvula midline. Posterior oropharyngeal erythema present. No oropharyngeal exudate. Tonsils: No tonsillar exudate. 1+ on the right. 1+ on the left. Eyes: Conjunctiva/sclera: Conjunctivae normal. Cardiovascular: Rate and Rhythm: Normal rate and regular rhythm. Pulmonary: Effort: Pulmonary effort is normal. Breath sounds: Normal breath sounds. Skin: General: Skin is warm and dry. Neurological: Mental Status: He is alert. Assessment and Plan ASSESSMENT/PLAN: 1. Sore throat - ICD9: 462, ICD10: J02.9 (primary diagnosis) - STREP A MOLECULAR (POC) 2. Strep pharyngitis - ICD9: 034.0, ICD10: J02.0 - suspect strep - Alere Strep Test positive, no culture pending - Amoxicillin for 10 days. - Discussed supportive care treatment with fluids, rest and analgesia. 3. URI, acute - ICD9: 465.9, ICD10: J06.9 - Discussed viral etiology and rationale for treatment. - Symptomatic treatment with prn analgesia - Supportive care with fluids and rest - declines covid/flu Diagnosis and treatment plan were discussed and questions were answered to the patient's satisfaction. Pt acknowledged understanding of concepts and follow up plan. Specific signs and symptoms that would indicate the need for higher level of care were discussed in detail warranting prompt ER evaluation. GENE Chapin [facility] 03-22-2020 Chief complaint Narrative - Reported Neurologic Evaluation.I had the pleasure of seeing Mr. Elías Leroy in neurological follow-up visit for his vague complaints about bad nerves , difficulty sleeping and focusing. Patient was initially seen by our nurse practitioner, Mrs. Ayana Jansen CNP, in March 2020 through virtual encounter. I am seeing this patient for the first time.Please refer to HPI section and other detailed clinical notes available through Physician's Portal and EMR. Patient's pertinent medical records, labs and imaging studies were reviewed by me personally and discussed with the patient and/or family members. When appropriate, part or all HPI narrative from previous visit(s) may be incorporated in today s note for continuity of medical care and record(s) keeping.The patient s detailed past medical history along with a history of present illness, family history, social history, past surgical history, medications and drug allergies were discussed with the patient in details and are documented in the patient s intake form and EMR records. As patient s history of present illness is well known to referring physician(s), it will be only briefly reviewed for our files. Background information was obtained from the patient and from a review of the available medical records; please refer to medical records for additional detailed information. [facility] Work Phone: 03-22-2020 History of Present illness Narrative I had the pleasure of seeing Mr. Elías Leroy in neurological follow-up visit for his vague complaints about bad nerves , difficulty sleeping and focusing. Patient was initially seen by our nurse practitioner, Mrs. Ayana Jansen CNP, in March 2020 through virtual encounter. I am seeing this patient for the first time. Mr. Leroy is a 30 years old -Polish male with complaints of some other somatic and constitutional problems along with chronic right jaw pain. Over the last several months he went to multiple ERs, including , [facility], [place], [facility] and [facility] with similar complaints. He also felt that he might have had stroke . 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 He also complains about some cognitive issues. Patient reports mainly short-term memory problems with increased forgetfulness, some word finding difficulties, problems concentrating, difficulty staying on task, problems remembering names or familiar faces, etc. Apart from some word finding difficulties there is no history of any other speech or language problems. No swallowing difficulties. No major headaches or visual symptoms reported. No focal weakness or numbness in extremities. No changes in bowel or bladder habits. No major gait or balance issues. Memory problems can get worse when the patient is anxious, stressed out or nervous and improve when patient is rested. Symptoms can be waxing and waning but are usually mild to moderate, seldom severe. No major headaches or neck pain. No speech or language difficulties. No swallowing problems. No permanent focal weakness or numbness in extremities. No changes in bowels or bladder habits. No major gait or balance issues. No visual symptoms. [facility] Work Phone: documented in this encounter [facility] [employer] Phone: Evaluation note* Diagnosis Sore throat- Primary Acute pharyngitis Dysphagia, unspecified type documented in this encounter [facility] [employer] Phone: Evaluation note* Diagnosis Jaw pain- Primary documented in this encounter [facility] Work Phone: Evaluation note* Diagnosis Sinus congestion- Primary Other diseases of nasal cavity and sinuses documented in this encounter [facility] note* Diagnosis Wellness examination- Primary Obtunded Other alteration of consciousness Drowsy Other alteration of consciousness Other fatigue Depression, unspecified depression type Vitamin D deficiency Unspecified vitamin D deficiency Tobacco use disorder Screening for lipid disorders Special screening examination for viral disease Special screening examination for unspecified viral disease Screening for HIV (human immunodeficiency virus) Special screening examination for other specified viral diseases Encounter to establish care Other reasons for seeking consultation documented in this encounter [facility] note* Diagnosis Vitamin D deficiency- Primary Unspecified vitamin D deficiency [facility]* Diagnosis Impingement of right ulnar nerve- Primary documented in this encounter [facility] note* Diagnosis Boil- Primary Carbuncle and furuncle of unspecified site documented in this encounter [facility] note* Diagnosis URI, acute- Primary Acute upper respiratory infections of unspecified site Sore throat Acute pharyngitis Acute cough SOB (shortness of breath) Shortness of breath documented in this encounter [facility] note* Diagnosis Acute URI- Primary Acute upper respiratory infections of unspecified site Mild intermittent reactive airway disease with acute exacerbation documented in this encounter [facility] note* Diagnosis Tremor of jaw (noted on left side) and both outstretched hands- Primary Gastroesophageal reflux disease, unspecified whether esophagitis present Pharyngoesophageal dysphagia Dysphagia, pharyngoesophageal phase LPRD (laryngopharyngeal reflux disease) Other diseases of larynx Mild intermittent reactive airway disease with acute exacerbation Anxiety, generalized Generalized anxiety disorder Allergic rhinitis, unspecified seasonality, unspecified trigger Encounter for immunization Need for other specified prophylactic vaccination against single bacterial disease documented in this encounter [facility] note* Diagnosis Tremor of jaw (noted on left side) and both outstretched hands documented in this encounter [facility] note* Diagnosis Mild intermittent reactive airway disease with acute exacerbation [facility] Instructions* Estefani Salgado PA - 08/25/2020 Please follow-up with your PCP. Please return to the emergency department for new or worsening symptoms. Please take naproxen as needed for symptoms. * Attachments The following attachments cannot be sent through Care Everywhere. * Head or Face Pain (French) [facility]* Attachments The following attachments cannot be sent through Care Everywhere. * Dysphagia: General Info (French) * Swallowing: Exercises (French) * Sore Throat (French) [facility] Discharge instructions* Instructions* Hank Greene PA - 02/05/2021 Please take medication as prescribed Please follow up with your Physicians as instructed in this discharge paperwork Thank you for choosing [facility] I appreciate your patience Please return to the emergency department if your symptoms worsen, or new symptoms develop as discussed [facility] Work Phone: Instructions* Name Dates Details Instructions not documented [id number] Work Phone: Reason for referral (narrative)* Outpatient Procedure (Routine) - Authorized Specialty Diagnoses / Procedures Referred By Tiffani mcguire [facility] Diagnoses Mild intermittent reactive airway disease with acute exacerbation Procedures SPIROMETRY - BASELINE AND POST DILATOR BRNCDILAT RSPSE SPMTRY PRE&POST-BRNCDILAT ADMN Ana Kaiser MD [address] [place] [id number] [facility] [place] [address] [place] [address] Referral ID Status Reason Start Date Expiration Date Visits Requested Visits Authorized [id number] Authorized Auto-Generat ed Referral 01/08/2023 02/07/2024 1 1 * Consult, Test, Treat (Routine) - Authorized Specialty Diagnoses / Procedures Referred By Tiffani mcguire Referred To Contact Neurology Diagnoses Tremor of both outstretched hands Procedures CONSULT TO NEUROLOGY OFFICE/OUTPATIENT NEW HIGH MDM 60-[place] [address] [place] [id number] Referral ID Status Reason Start Date Expiration Date Visits Requested Visits Authorized [id number] Authorized PCP Requested Referral 01/08/2023 01/08/2024 1 1 [facility] Instructions Date Instruction Lonnie ayers Take new medication as prescribe d Name Dates Details Instructions not documented Summary Purpose Family History No Family History Records Found Advance Directives Latest Code Status on File Code Status Date Activated Date Inactivated Comments Full Code 02/08/2019 8:45 AM 02/11/2019 7:03 PM Documentation of decision pr ocess for this code status: Patient and surrogate unable or unavailable to discuss. There is no previous documentation of code status. 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 Follow-up with urology as scheduled in the next 8 days for evaluation of the bloody semen. * Attachments The following attachments cannot be sent through Care Everywhere. * Gonorrhea and Chlamydia Tests (French) * Urethritis (French) * Male Anatomy: Anatomy Sketch (French) documented in this encounter* Instructions* Inder Raoms DO - 09/24/2019 Genital Warts: Care Instructions Your Care Instructions Genital warts are caused by a virus called the human papillomavirus (HPV). They are considered a sexually transmitted infection (STI) because the virus can be spread by sexual contact. The warts often look like small, fleshy bumps or flat, white patches. They can be anywhere in the genital area. You can also be infected with HPV yet not have visible warts. Genital warts often go away on their own without treatment. Some people decide to treat them because of the symptoms or the warts' appearance. Follow-up care is a galdamez part of your treatment and safety. Be sure to make and go to all appointments, and call your doctor if you are having problems. It's also a good idea to know your test resultsand keep a list of the medicines you take. How can you care for yourself at home? If your doctor gave you medicine to treat your warts at home, use the medicine exactly as prescribed. Call your doctor if you think you are having a problem with your medicine. To reduce the itching and irritation from genital warts: ? Take warm baths or wash the area with warm water 3 or 4 times a day. ? Keep the warts clean and dry in between baths. You may want to let the sores air dry. This may feel better than a towel. ? Do not use [id number]-hwa-[id number] wart removal products to treat genital warts. These products are not intended for the genital area and may cause serious fernandez. To prevent the spread of genital warts Be sure to use a latex condom every time you have sex. You can infect someone even if you do not have an obvious wart. Having one sex partner (who does not have STIs and does not have sex with anyone else) is a good way to avoid STIs. Wash your hands if you touch the warts. Talk to your sex partner or partners about genital warts. When should you call for help? Call your doctor now or seek immediate medical care if: A genital wart hurts or spreads. Watch closely for changes in your health, and be sure to contact your doctor if: You want further treatment for your genital warts. You do not get better as expected. Where can you learn more? Go to [email or web address] and sign in to your [employer] account. Enter J745 in the Search Health Information box to learn more about Genital Warts: Care Instructions. If you do not have an account, please click on the Sign Up Now link. Current as of: June 17, 2019 Content Version: 12. [employer]. Care instructions adapted under license by [employer]. If you have questions about a medical condition or this instruction, always ask your healthcare professional. [employer] disclaims any warranty or liability for your use of this information. documented in this encounter* Attachments The following attachments cannot be sent through Care Everywhere. * TMD (Temporomandibular Disorder) (French) * Anxiety Disorder (French) documented in this encounter Assessments Diagnosis TMJ pain dysfunction syndrome- Primary Other specified temporomandibular joint disorders Anxiety Anxiety state, unspecified Diagnosis Condyloma acuminatum of penis Condyloma acuminatum Condyloma acuminatum of scrotum Condyloma acuminatum Diagnosis Urethritis- Primary Urethritis, unspecified Reason for Referral Specialty Diagnoses / Procedures Referred By Tiffani mcguire Referred To Contact Ent - Otolaryngology Diagnoses Sinus congestion Procedures CONSULT TO ENT OFFICE/OUTPATIENT [facility] 60-74 MINUTES Jasmine Jj, [address] [place] [address] Referral ID Status Reason Start Date Expiration Date Visits Requested Visits Authorized [id number] Authorized PCP Requested Referral 06/17/2022 06/17/2023 1 1 * severe reflux Medications Administered Section Administered Medications Medication Order MAR Action Action Date Dose Rate Site tuberculin skin test (TST-PPD), purified protein derivative, intradermal Given 06/18/2020 0.1 mL Additional Source Comments (unrecognized sect ion and content) No Status Records FoundNo Status Records FoundNo Status Records FoundNo Status Records FoundNo Status Records FoundNo Status Records FoundNo Status Records FoundNo Status Records FoundNo Status Records Found INFORMATION SOURCE (unrecogn ized section and content) DATE CREATED AUTHOR AUTHOR'S ORGANIZ ATION 07/15/2020 [facility] DATE CREATED AUTHOR AUTHOR'S ORGANIZ ATION 09/17/2020 [employer] DATE CREATED AUTHOR AUTHOR'S ORGANIZ ATION 02/11/2021 [facility] DATE CREATED AUTHOR AUTHOR'S ORGANIZ ATION 02/25/2021 [employer] DATE CREATED AUTHOR AUTHOR'S ORGANIZ ATION 03/10/2021 [facility] DATE CREATED AUTHOR AUTHOR'S ORGANIZ ATION 05/11/2021 [facility] DATE CREATED AUTHOR AUTHOR'S ORGANIZ ATION 06/05/2021 [facility] DATE CREATED AUTHOR AUTHOR'S ORGANIZ ATION 04/18/2023 [facility] Reason for Visit (unrecogniz ed section and content) Reason Comments Pharyngitis jaw pain Reason Comments Facial Swelling Pt states had headbu tted to the jaw by a pitbull. pt states hurts when move jaw. Pt states unable to chew, eat, or drink at this time. pt states pain 10 on 0 to 10. Reason Comments Dysphagia Reason Comments Other Pt presents to the E D c/o tightness in jaw . Pt states that he is unable to open his mouth anymore. He reports that this has been going on for months. Pt also reports that it hurts to swallow, also been going on for months. Pt has been seen in the past for this and reports that they never do nothing. Reason Comments Nose Problem X months Reason Comments Establish Care Reason Comments Results Reason Comments right arm pain Right arm pain and n umbness x 3 days Reason Comments Derm Problem sore in right groin x 3 days Reason Comments Throat Problem feels like throat i s swelling , chest tightness and sob x couple months, increased x today Reason Comments URI shortness of breath, congestion and nasal drainage, cough with yellow sputum chest tightness and trouble swallowingsymptoms have been on and off for the last two months Reason Comments Follow Up Reason Onset Date Comments Refill Request 02/27/2023 Reason Comments Botox referral Reason Comments Insurance Authorization PA Denied - P2P requested Reason Onset Date Comments Refill Request 04/02/2023 Ordered Prescriptions (unrec ognized section and content) Prescription Sig Dispensed Refills Start Date End Da te naproxen (NAPROSYN) 500 MG tablet Take 1 tablet by mouth 2 times daily (with meals) for 5 days 10 tablet 0 08/25/2020 08/30/2020 Prescription Sig Dispensed Refills Start Date End Da te naproxen (NAPROSYN) 500 MG tablet Take 1 tablet by mouth 2 times daily for 7 days 14 tablet 0 02/05/2021 02/12/2021 Scheduled Active and Recently Administ ered Medications (unrecognized section and content) PRN Medication Order 01/04/2021 01/05/2021 01/06/2021 iopamidol (ISOVUE-370) 76 % injection 75 mL (COMPLETED) 75 mL, IntraVENous, IMG ONCE PRN, Other, Starting on Lesly 01/05/21 at 2200, For 1 dose 2215 (Given - Provider: Tressa Edgar) Scheduled Medication Order 02/03/2021 02/04/2021 02/05/2021 ketorolac (TORADOL) injection 15 mg (COMPLETED) 15 mg, IntraMUSCular, ONCE, On 02/05/21 at 1030, For 1 dose, Do not administer for more than 5 days. 1039 (Given - Provid er: Sonia Weiner RN) sodium chloride flush 0.9 % injection 3 mL(Linked Group 1) 3 mL, IntraVENous, EVERY 8 HOURS, First dose on 02/05/21 at 1030, Flush line with 3-5 mL 1039 (Given - Provid er: Sonia Weiner RN)1830 (Due) Linked Groups Order Group 1: Saline lock IV (COMPLETED) Routine, CONTINUOUS, Starting on 02/05/21 at 1015, Until Specified And sodium chloride flush 0.9 % injection 3 mLJump to med 3 mL, IntraVENous, EVERY 8 HOURS, First dose on 02/05/21 at 1030
Flush line with 3-5 mL
<item> Privacy Markings (unrecogniz ed section and content) Section Author: Temitope Turpin PROHIBITION ON REDISCLOSURE OF CONFIDENTIAL INFORMATION This notice accompanies a disclosure of information concerning a client made to you with the consent of such client. Care Teams (unrecognized sec tion and content) Cabin Worker Relationship Specialty Start Date End Date Ana Kaiser MD [address] [place], [place] [id number] PCP - General Internal Medicine 06/26/22 Cabin Worker Relationship Specialty Start Date End Date Ana Kaiser MD [address] [place], [place] [address] PCP - General Internal Medicine 06/26/22 Cabin Worker Relationship Specialty Start Date End Date Ana Kaiser MD [address] [place] [address] PCP - General Internal Medicine 06/26/22 Cabin Worker Relationship Specialty Start Date End Date Ana Kaiser MD [address] [place] [address] PCP - General Internal Medicine 06/26/22 Cabin Worker Relationship Specialty Start Date End Date Ana Kaiser MD [address] [place] [address] PCP - General Internal Medicine 06/26/22 Cabin Worker Relationship Specialty Start Date End Date Ana Kaiser MD [address] [place] [address] PCP - General Internal Medicine 06/26/22 Cabin Worker Relationship Specialty Start Date End Date Ana Kaiser MD [address] [place] [address] PCP - General Internal Medicine 06/26/22 Cabin Worker Relationship Specialty Start Date End Date Ana Kaiser MD [address] [place] [address] PCP - General Internal Medicine 06/26/22 Cabin Worker Relationship Specialty Start Date End Date Ana Kaiser MD [address] [place] [address] PCP - General Internal Medicine 06/26/22 Cabin Worker Relationship Specialty Start Date End Date Sally Matt, KOKIS [address] [place] [address] [place] [address] Resident Dentistry 01/26/20 Tamiko Munoz, PAIN MANAGEMENT PHYSICIAN-DECORATIVE CUTTING MACHINE TENDER [address] [place] [id number] OPERATIONS DISPATCHER Psychiatry 01/26/20 Ava HenryRosy S [address] [place] [address] [place] [address] Resident Dentistry 05/27/20 Diandra Stevens DDS [address] [place] [id number] Resident Dentistry 06/24/20 Luisito Lewis S [address] [place] [address] [place] [address] Resident Dentistry 07/22/20 Source Comments (unrecognize d section and content) In the event this informatio n is protected by the Federal Confidentiality of Alcohol and Drug Abuse Patient Records regulations: The Federal rules restrict any use of the information to criminally investigate or prosecute any alcohol or drug abuse patient.[facility] the event this information is protected by the Federal Confidentiality of Alcohol and Drug Abuse Patient Records regulations: The Federal rules restrict any use of the information to criminally investigate or prosecute any alcohol or drug abuse patient.[facility] the event this information is protected by the Federal Confidentiality of Alcohol and Drug Abuse Patient Records regulations: The Federal rules restrict any use of the information to criminally investigate or prosecute any alcohol or drug abuse patient.[facility] Dublin[facility] the event this information is protected by the Federal Confidentiality of Alcohol and Drug Abuse Patient Records regulations: The Federal rules restrict any use of the information to criminally investigate or prosecute any alcohol or drug abuse patient.[facility] Dublin[facility] the event this information is protected by the Federal Confidentiality of Alcohol and Drug Abuse Patient Records regulations: The Federal rules restrict any use of the information to criminally investigate or prosecute any alcohol or drug abuse patient.[facility] DublinIn the event this information is protected by the Federal Confidentiality of Alcohol and Drug Abuse Patient Records regulations: The Federal rules restrict any use of the information to criminally investigate or prosecute any alcohol or drug abuse patient.[facility] the event this information is protected by the Federal Confidentiality of Alcohol and Drug Abuse Patient Records regulations: The Federal rules restrict any use of the information to criminally investigate or prosecute any alcohol or drug abuse patient.[facility] Dublin[facility] the event this information is protected by the Federal Confidentiality of Alcohol and Drug Abuse Patient Records regulations: The Federal rules restrict any use of the information to criminally investigate or prosecute any alcohol or drug abuse patient.[facility] Dublin[facility] the event this information is protected by the Federal Confidentiality of Alcohol and Drug Abuse Patient Records regulations: The Federal rules restrict any use of the information to criminally investigate or prosecute any alcohol or drug abuse patient.[facility] Dublin[facility] the event this information is protected by the Federal Confidentiality of Alcohol and Drug Abuse Patient Records regulations: The Federal rules restrict any use of the information to criminally investigate or prosecute any alcohol or drug abuse patient.[facility] Dublin[facility] the event this information is protected by the Federal Confidentiality of Alcohol and Drug Abuse Patient Records regulations: The Federal rules restrict any use of the information to criminally investigate or prosecute any alcohol or drug abuse patient.[facility] DublinIn the event this information is protected by the Federal Confidentiality of Alcohol and Drug Abuse Patient Records regulations: The Federal rules restrict any use of the information to criminally investigate or prosecute any alcohol or drug abuse patient.[facility] DublinIn the event this information is protected by the Federal Confidentiality of Alcohol and Drug Abuse Patient Records regulations: The Federal rules restrict any use of the information to criminally investigate or prosecute any alcohol or drug abuse patient.[facility] DublinIn the event this information is protected by the Federal Confidentiality of Alcohol and Drug Abuse Patient Records regulations: The Federal rules restrict any use of the information to criminally investigate or prosecute any alcohol or drug abuse patient.[facility] FOR RECORDS PERTAINING TO PATIENTS WHO ARE OR HAVE BEEN ENROLLED IN A CHEMICAL DEPENDENCY/SUBSTANCEABUSE PROGRAM, SOME INFORMATION MAY BE OMITTED. This clinical summary was aggregated from multiple sources. Caution should be exercised in using it in the provision of clinical care. This summary normalizes information from multiple sources, and as a consequence, information in this document may materially change the coding, format and clinical context of patient data. In addition, data may be omitted in some cases. CLINICAL DECISIONS SHOULD BE BASED ON THE PRIMARY CLINICAL RECORDS. [facility] [employer] [facility]. provides no warranty or guarantee of the accuracy or completeness of information in this document.
[2023-05-11] MEDS: 0.9% Normal Saline (500mL Bag) 500 ML 1000 ML IV (14:53)
[2023-05-11 15:03] LABS: Absolute Lymphocyte Count 2.78 X10^3/uL (0.83-4.51); Absolute Neutrophil Count 2.9 X10^3/uL (2.0-7.7); Basophil# 0.04 X10^3/uL; Basophil% 0.6 % (0-1); Eosinophils% 3.1 % (0-5); Hematocrit 43.1 % (40-54); Hemoglobin 13.6 g/dL (13.0-16.5); Lymphocyte # 2.78 X10^3/ul (0.83-4.51); Lymphocyte % 42.6 % (19-41); Mean Corp Hgb Conc 31.6 g/dL (32-36); Mean Corpuscular Hgb 27.1 pg (27.0-32.0); Mean Platelet Vol. 10.6 fl (6.2-12.0); Monocyte# 0.54 X10^3/uL; Monocyte% 8.3 % (0-10); NRBC Flagged by Analyzer 0 % (0-5); Neutrophil # 2.94 X10^3/uL (2.7-7.7); Neutrophil % 45.1 % (47-70); Platelet Count 282 K/mm3 (150-450); RBC Distribution Width CV 13.1 % (11.6-14.6); RBC Distribution Width SD 40.6 fl (35.1-43.9); Red Blood Count 5.01 M/mm3 (4.6-6.2); White Blood Count 6.5 K/mm3 (4.4-11.0)
[2023-05-11] MEDS: Famotidine 200 MG/20 ML MDV 20 MG in 0.9% Normal Saline (Pres. free 8 ML 300 MG IV ×2 (15:07→23:00)
--- NOTE | 2023-05-11 15:15 | RAD_ITS ---
STUDY: X-RAY CHEST REASON FOR EXAM: Male, 33 years old. SOB TECHNIQUE: Single AP portable view of the chest. COMPARISON: 08/23/2022 FINDINGS: The lungs are clear and expanded. There is no demonstrated pleural abnormality. Normal size heart. Normal mediastinum and jacquelyn. Normal visualized pulmonary arteries. Normal visualized aortic arch and descending thoracic aorta. Normal visualized thoracic spine. Normal visualized ribs, clavicles, and shoulders. There is no demonstrated abnormality of the visualized soft tissue structures of the upper abdomen. RAD/Chest 1 View (Portable) IMPRESSION: No evidence of acute cardiopulmonary process. Electronically Signed: Orville Rick DO at 15:24 EST ,
[2023-05-11 15:16] LABS: AST(SGOT) 13 U/L (15-37); Alanine Aminotransfer ALT/SGPT 22 U/L (16-61); Albumin, Serum 3.6 g/dL (3.2-5.0); Alkaline Phosphatase 87 U/L (45-117); Anion Gap 3 (5-15); BUN 10 mg/dL (7-18); BUN/Creat Ratio 7.8 RATIO (10-20); Chloride 109 mmol/L (98-107); Creatinine, Serum 1.29 mg/dL (0.70-1.30); EST Glomerular Filtration Rate 69 mL/min (>60); Est Glom Filt Rate - Afr Amer 83 mL/min (>60); Estimated Creatinine Clearance 97.27 ml/min; Globulin 3.7 g/dL (2.2-4.2); Glucose 124 mg/dL (74-106); Potassium 3.6 mmol/L (3.5-5.1); Protein, Total 7.3 g/dL (6.4-8.2); Sodium Level 142 mmol/L (136-145)
--- NOTE | 2023-05-11 15:26 | CON.PCM_ITS ---
Assessment & Plan Assessment/Plan (1) Angioedema: PLAN: Plan 33 year old male with progressive pharyngeal irritation -scope exam at bedside demonstrated full but not occlusive adenoid tissue. some cobblestoning of the posterior and lateral pharynx. epiglottis and vocal cords were crisp, bilateral cords mobile. larynx and visualized subglottis completely normal. voice normal. -per ED staff, exam virtually normalized after meds. reexamination with ED attending demonstrated no trismus, normal posterior pharynx. no watery edema. -agree with admission for observation, continue meds per angioedema protocol. -assuming no further events, will reexamine in the morning. HPI Consult Data Date of Consult: 05/11/23 HPI Narrative Reason for Consultation: airway HPI Narrative: THOMAS MONZON, is a 33 M who presents with roughly 3 hours of increased throat irritation and swelling. per ED staff, posterior pharynx was difficult to visu ree and there was some trismus present. takes lexapro, denies lisinopril; no sulfa or shellfish exposure, which are allergies. history of dysphagia for > 1 year, denies swallowing issue that precipitated this event. Currently feels better now after epinephrine, H2, FFP, decadron. [facility] Medical History (Updated 05/11/23 @ 15:[address] Oleksandr Paul MD) Anxiety Home Medications escitalopram oxalate 10 mg tablet (Lexapro) 10 mg PO DAILY 30 days #30 tabs 03/09/23 [Rx Last Taken Unknown] hydroxyzine HCl 25 mg tablet 25 mg PO 4X/DAY PRN PRN Breakthrough anxiety #40 tabs 03/09/23 [Rx Last Taken Unknown] Allergy/AdvReac Type Severity Reaction Status Date / Time shellfish derived Allergy shellfish Verified 05/11/23 14:38 Sulfa (Sulfonamide Allergy Hives Verified 05/11/23 14:35 Antibiotics) Social History Smoking Status: Current some day smoker tobacco type: cigarettes Physical Exam Const alert and oriented x3 General Appearance: cooperative Orientation / Consciousness: awake HEENT normocephalic Mouth: oral and palatal mucosa normal, lips normal and tongue normal Throat: posterior oropharynx normal Neck full ROM and no lymphadenopathy Neck Narrative: soft floor of mouth and level 1 by palpation Chest Chest Narrative: no stridor Lab / Micro Data 05/11/23 14:37 05/11/23 14:37 Labs: Laboratory Results - last 24 hr 05/11/23 14:37: WBC 6.5, RBC 5.01, Hgb 13.6, Hct 43.1, MCV 86.0, MCH 27.1, MCHC 31.6 L, RDW Std Deviation 40.6, RDW Coeff of Omid 13.1, Plt Count 282, MPV 10.6, Immature Gran % (Auto) 0.300, Neut % (Auto) 45.1 L, Lymph % (Auto) 42.6 H, Jessamine % (Auto) 8.3, Eos % (Auto) 3.1, Baso % (Auto) 0.6, Absolute Neuts (auto) 2.9, Absolute Lymphs (auto) 2.78, Nucleated RBC % 0, Sodium 142, Potassium 3.6, Chloride 109 H, Carbon Dioxide 30.0, Anion Gap 3 L, BUN 10, Creatinine 1.29, Estim Creat Clear Calc 97.27, Est GFR (MDRD) Af Amer 83, Est GFR (MDRD) Non-Af 69, BUN/Creatinine Ratio 7.8 L, Glucose 124 H, Calcium 9.0, Total Bilirubin 0.70, AST 13 L, ALT 22, Alkaline Phosphatase 87, Total Protein 7.3, Albumin 3.6, Globulin 3.7, Albumin/Globulin Ratio 1.0 Imagaing Radiology Impression Chest X-Ray 05/11/23 15:15 IMPRESSION: No evidence of acute cardiopulmonary process. Electronically Signed: Orville Rick DO at 15:24 EST ,
--- NOTE | 2023-05-11 15:35 | PCM.OPRPT ---
Problems Associated Problem List Diagnoses (1) Angioedema: Report of Operation Date of Procedure: 05/11/23 Pre-Operative Diagnosis: pharyngeal edema Post-Operative Diagnosis: pharyngeal edema Surgery/Procedure Performed:: flexible laryngoscopy Surgeon: Oleksandr Paul Description of Procedure: the flexible laryngoscope was passed through the left nasal cavity. there was enlarged but non-occlusive adenoid tissue. cobblestoning of the posterior and lateral pharyngeal lucero. tongue base, valleculae, epiglottis and glottis all completely normal. cords mobile. visualized subglottis normal.
--- NOTE | 2023-05-11 16:01 | HP.PCM.HOS_ITS ---
HPI - General General Date of Admission: 05/11/23 Date of Service: 05/11/23 Chief Complaint: Allergic Reaction HPI Narrative THOMAS MONZON, is a 33 M who presented to the emergency department at [facility] on 05/11/2023 after he been suffering from about 3 hours of increased throat irritation and swelling. Per the ED staff the posterior pharynx was difficult occult to visualize and there was some trismus present. The patient denies taking an CONNOR inhibitor and has had no new medications. He has not been on any antibiotics and had no show fix exposure or new foods that he had tried of which she is aware. The patient does take Lexapro and had been off of it for couple of days and it was restarted yesterday. An airway team was called in the emergency department due to his findings on presentation and the patient was treated with Decadron 10 mg x 1 dose, Benadryl, and famotidine. ENT was available and evaluated the patient on scope at the bedside He was found to have full but not occlusive adenoid tissue with some cobblestoning of the posterior and lateral pharynx. Per ENT documentation the glue epiglottis and vocal cords were crisp and bilateral colors were mobile. The larynx was visualized and the subglottis was completely normal. His voice was normal. He was reexamined with the ED attending and had no trismus at that time and a normal posterior pharynx with no watery edema. Given this they felt that he should be observed for observation and continue medications for angioedema protocol and ENT plans to reevaluate the patient in the morning. Patient denies any previous history of this and has no family history of angioedema. Vital signs were unremarkable and his oxygen saturation was 100% on room air. CBC is unremarkable other than a lymphocytosis. His chemistry panel was unremarkable. Chest x-ray is unremarkable. [facility] Medical History Anxiety Home Medications escitalopram oxalate 10 mg tablet (Lexapro) 10 mg PO DAILY 30 days #30 tabs 03/09/23 [Rx Last Taken Unknown] hydroxyzine HCl 25 mg tablet 25 mg PO 4X/DAY PRN PRN Breakthrough anxiety #40 tabs 03/09/23 [Rx Last Taken Unknown] Allergy/AdvReac Type Severity Reaction Status Date / Time escitalopram [From Lexapro] Allergy Severe Angioedema Verified 05/11/23 16:00 shellfish derived Allergy shellfish Verified 05/11/23 14:38 Sulfa (Sulfonamide Allergy Hives Verified 05/11/23 14:35 Antibiotics) no significant family history no surgical history Social History (Updated 05/11/23 @ 17:[address] Heidi Lee, DO) Smoking Status: Current some day smoker tobacco type: cigarettes alcohol intake: never substance use type: does not use Vital Signs Vital Signs Vital Signs: 05/11/23 14:32 05/11/23 14:52 05/11/23 15:01 Temperature 98.0 F Temperature Source Temporal Pulse Rate 83 88 70 Respiratory Rate 18 21 H 15 Blood Pressure 151/74 H 157/90 H 150/79 H Blood Pressure Mean 99 112 102 Pulse Ox 100 100 100 Oxygen Delivery Method Room Air Room Air Room Air Weight Weight: 94.256 kg Body Mass Index (BMI) 29.0 Physical Exam Const alert, oriented x3, no apparent distress, average body habitus, healthy appearing and well nourished Constitutional Narrative: Lower middle-aged, -Tong[place], male, lying in bed, protecting his airway well, no drooling present, can phonate without any difficulty. Mild lip swelling but tongue appears normal size and I am able to visualize the posterior pharynx with him opening his mouth not utilizing a tongue depressor, patient is nontoxic and currently appears comfortable General Appearance: cooperative HEENT normocephalic, head/scalp atraumatic, hearing grossly normal bilaterally and moist oral mucous membranes HEENT Narrative: Mallampati 2, no thrush, dentition is good, mild lower lip swelling Resp normal respiratory effort, no retractions, no use of accessory muscles and clear to auscultation bilaterally Resp Narrative: No upper airway stridor Auscultation: Negative for rales, rhonchi or wheezes Cardio regular rate, regular rhythm, S1 normal heart sound, S2 normal heart sound, no murmurs, no rub and no gallops GI normal to inspection, nondistended, normoactive bowel sounds, soft to palpation and non-tender Extremity no clubbing, cyanosis or edema Neuro oriented x3, moves all extremities and no focal motor deficits Speech: speech normal Psych Psych Narrative: Affect is flat, patient is calm Results Lab / Micro Data 05/11/23 14:37 05/11/23 14:37 Labs: Laboratory Results - last 24 hr 05/11/23 14:37: WBC 6.5, RBC 5.01, Hgb 13.6, Hct 43.1, MCV 86.0, MCH 27.1, MCHC 31.6 L, RDW Std Deviation 40.6, RDW Coeff of Omid 13.1, Plt Count 282, MPV 10.6, Immature Gran % (Auto) 0.300, Neut % (Auto) 45.1 L, Lymph % (Auto) 42.6 H, Heard % (Auto) 8.3, Eos % (Auto) 3.1, Baso % (Auto) 0.6, Absolute Neuts (auto) 2.9, Absolute Lymphs (auto) 2.78, Nucleated RBC % 0, Sodium 142, Potassium 3.6, Chloride 109 H, Carbon Dioxide 30.0, Anion Gap 3 L, BUN 10, Creatinine 1.29, Estim Creat Clear Calc 97.27, Est GFR (MDRD) Af Amer 83, Est GFR (MDRD) Non-Af 69, BUN/Creatinine Ratio 7.8 L, Glucose 124 H, Calcium 9.0, Total Bilirubin 0.70, AST 13 L, ALT 22, Alkaline Phosphatase 87, Total Protein 7.3, Albumin 3.6, Globulin 3.7, Albumin/Globulin Ratio 1.0 Imagaing Radiology Impression Chest X-Ray 05/11/23 15:15 IMPRESSION: No evidence of acute cardiopulmonary process. Electronically Signed: Orville Rick, at 15:24 EST , Assessment & Plan Assessment/Plan (1) Angioedema: PLAN: Plan Acute angioedema -There are case reports of Lexapro causing angioedema so I will place this as an allergy -Continue Decadron 10 mg daily -Continue Benadryl 25 mg every 6 hours -Continue famotidine twice daily -Clinically appears as if he is improving based on previous description documented in the chart -N.p.o. for now but if clinically continues to improve through the evening may be able to consider diet -Repeat evaluation by ENT tomorrow -Consider allergy follow-up after discharge -Will admit to ICU for ongoing monitoring due to airway concern Anxiety -Hold Lexapro -Would recommend patient not go back on an SSRI and maybe have an SNRI or another class of antidepressant offered -Could consider outpatient follow-up with psychiatry after discharge DVT prophylaxis -Low risk CODE STATUS Full code Charges/Coding Visit Charges Inpatient E&M: 26871 Init Hosp L1
--- OUTSIDE RECORDS SUMMARY | 2023-05-11 16:05 | XMS RPT_ITS | CCD ---
Author Name Unknown Address [address] [place] [address] Organization [facility] Care Team Providers Care Laboratory Tech Name Role Phone Foster DDS, Shannan Unavailable Unavailable Foster DDS, Shannan K Attending Unavailabl e Safety Net, Provider Primary Care Unavailable Foster DDS, Shannan K Attending Unavailabl e Safety Net, Provider Primary Care Unavailable Foster DDS, Shannan Unavailable Unavailable Foster DDS, Shannan Unavailable Unavailable Corky LEWIS, Hetal Unavailable Unavailable Dante Gonsalves Primary Care Provider [phone] Dante Gonsalves Primary Care Provider [phone] Rivas Wu Unavailable Unavailable Unknown, Referring Provider Unavailable Unav ailable Rivas Wu Unavailable Unavailable Dante Gonsalves DO Primary Care Provider [phone] Refugio Rose MD Unavailable Unavailable Jazmin REFRIGERATOR MOVER-SOCIAL WORK ADMINISTRATORRivas Unavailable Unavailable Unknown, Referring Provider Unavailable Unav ailable Rivas Wu Unavailable Unavailable Xavier Heranndez MD Unavailable Unavailable Unknown, Referring Provider Unavailable Unav ailable Unavailable Unavailable Dante Gonsalves DO Primary Care Provider [phone] Unknown, Pcp Unavailable Unavailable Eulalio Gracia Unavailable [...] TELLESS, Sally Unavailable Tammy GANDARAN-Tamiko PERRY Unavailable [phone] Ava Henry KOKIS, Rosy Unavailable Rodney TELLESS, [...] Shaka DAWSON Sally Unavailable Tamiko Lambert Unavailable [phone] Ava Henry DDS, Rosy Unavailable Bradymarj TELLESS, Nour Unavailable Larryrisa TELLESSLuisito Unavailable Allergies Allergy Classification Reported Allergen(s) Allergy Type Date of Onset Reaction(s) Facility Sulfonamides (antibiotic) (4 sources) Sulfonamides (Antibiotic); Translations: [Sulfa Drugs] Drug Allergy 5 Rash [facility] (5 sources) Sulfonamides (Antibiotic); Translations: [Sulfa (Sulfonamide Antibiotics)] propensity to adverse reactions [facility] drug [facility] (7 sources) Sulfonamides (Antibiotic); Translations: [SULFA ANTIBIOTICS] Propensity to adverse reactions to drug 5 Rash [facility] Work Phone: (1 source) Sulfonamides (Antibiotic) Unknown [facility] (3 sources) Sulfacetamide; Translations: [SULFACETAMIDE SODIUM] Drug Allergy 5 Rash [facility] (16 sources) Sulfonamides (Antibiotic) Propensity to adverse reactions to drug 9 Hives [facility] Work Phone: (15 sources) Acetaminophen / HYDROcodone; Translations: [HYDROCODONE-ACET AMINOPHEN] Drug Allergy 1 Itching [facility] Work Phone: Medications Current Medications Medication Drug [...] 177.8 cm Ana Kaiser MD Work Phone: [facility] 01-08-2023 09:11-0400 Body weight 84.82 kg Ana Kaiser MD Work Phone: [facility] 01-08-2023 09:11-0400 Diastolic blood pressure 60 mm[Hg] Ana Kaiser MD Work Phone: [facility] 01-08-2023 09:11-0400 Heart rate 80 /min Ana Kaiser MD Work Phone: [facility] 01-08-2023 09:11-0400 Respiratory rate 16 /min Ana Kaiser MD Work Phone: [facility] 01-08-2023 09:11-0400 Systolic blood pressure 120 mm[Hg] Ana Kaiser MD Work Phone: [facility] 01-07-2023 10:44-0400 Body weight 84.82 kg Orlando Erica REFRIGERATOR MOVER.SOCIAL WORK ADMINISTRATOR Work Phone: [facility] 01-07-2023 10:44-0400 Diastolic blood pressure 68 mm[Hg] Orlando Erica REFRIGERATOR MOVER.SOCIAL WORK ADMINISTRATOR Work Phone: [facility] 01-07-2023 10:44-0400 Heart rate 87 /min Orlando Erica REFRIGERATOR MOVER.SOCIAL WORK ADMINISTRATOR Work Phone: [facility] 01-07-2023 10:44-0400 SaO2% (BldA) [Mass fraction] 99 % Orlando Erica REFRIGERATOR MOVER.SOCIAL WORK ADMINISTRATOR Work Phone: [facility] 01-07-2023 10:44-0400 Systolic blood pressure 120 mm[Hg] Orlando Erica REFRIGERATOR MOVER.SOCIAL WORK ADMINISTRATOR Work Phone: [facility] 01-03-2023 16:27-0400 Body temperature 99.5 [degF] Christiano Park REFRIGERATOR MOVER.SOCIAL WORK ADMINISTRATOR Work Phone: [facility] 01-03-2023 16:27-0400 Body weight 81.19 kg Christiano Park REFRIGERATOR MOVER.SOCIAL WORK ADMINISTRATOR Work Phone: [facility] 01-03-2023 16:27-0400 Diastolic blood pressure 94 mm[Hg] Christiano Xavier REFRIGERATOR MOVER.SOCIAL WORK ADMINISTRATOR Work Phone: [facility] 01-03-2023 16:27-0400 Heart rate 122 /min Christiano Xavier REFRIGERATOR MOVER.SOCIAL WORK ADMINISTRATOR Work Phone: [facility] 01-03-2023 16:27-0400 Respiratory rate 16 /min Christiano Xavier REFRIGERATOR MOVER.SOCIAL WORK ADMINISTRATOR Work Phone: [facility] 01-03-2023 16:27-0400 SaO2% (BldA) [Mass fraction] 98 % Christiano Xavier REFRIGERATOR MOVER.SOCIAL WORK ADMINISTRATOR Work Phone: [facility] 01-03-2023 16:27-0400 Systolic blood pressure 176 mm[Hg] Christiano Xavier REFRIGERATOR MOVER.SOCIAL WORK ADMINISTRATOR Work Phone: [facility] 12-09-2022 14:23-0400 Body temperature 99.9 [degF] Zahida Omar REFRIGERATOR MOVER.SOCIAL WORK ADMINISTRATOR Work Phone: [facility] 12-09-2022 14:23-0400 Body weight 82.37 kg Zahida Omar REFRIGERATOR MOVER.SOCIAL WORK ADMINISTRATOR Work Phone: [facility] 12-09-2022 14:23-0400 Diastolic blood pressure 84 mm[Hg] Zahida Omar REFRIGERATOR MOVER.SOCIAL WORK ADMINISTRATOR Work Phone: [facility] 12-09-2022 14:23-0400 Heart rate 118 /min Zahida Omar REFRIGERATOR MOVER.SOCIAL WORK ADMINISTRATOR Work Phone: [facility] 12-09-2022 14:23-0400 Respiratory rate 16 /min Zahida Omar REFRIGERATOR MOVER.SOCIAL WORK ADMINISTRATOR Work Phone: [facility] 12-09-2022 14:23-0400 SaO2% (BldA) [Mass fraction] 96 % Zahida Omar REFRIGERATOR MOVER.SOCIAL WORK ADMINISTRATOR Work Phone: [facility] 12-09-2022 14:23-0400 Systolic blood pressure 146 mm[Hg] Zahida Omar REFRIGERATOR MOVER.SOCIAL WORK ADMINISTRATOR Work Phone: [facility] 10-30-2022 15:30-0400 Body temperature 98.6 [degF] Duong Pendlebury REFRIGERATOR MOVER.SOCIAL WORK ADMINISTRATOR Work Phone: [facility] 10-30-2022 15:30-0400 Body weight 84.73 kg Duong Pendlebury REFRIGERATOR MOVER.SOCIAL WORK ADMINISTRATOR Work Phone: [facility] 10-30-2022 15:30-0400 Diastolic blood pressure 84 mm[Hg] Duong Pendlebury REFRIGERATOR MOVER.SOCIAL WORK ADMINISTRATOR Work Phone: [facility] 10-30-2022 15:30-0400 Heart rate 78 /min Duong Pendlebury REFRIGERATOR MOVER.SOCIAL WORK ADMINISTRATOR Work Phone: [facility] 10-30-2022 15:30-0400 Respiratory rate 16 /min Duong Pendlebury REFRIGERATOR MOVER.SOCIAL WORK ADMINISTRATOR Work Phone: [facility] 10-30-2022 15:30-0400 SaO2% (BldA) [Mass fraction] 96 % Duong Pendlebury REFRIGERATOR MOVER.SOCIAL WORK ADMINISTRATOR Work Phone: [facility] 10-30-2022 15:30-0400 Systolic blood pressure 136 mm[Hg] Duong Pendlebury REFRIGERATOR MOVER.SOCIAL WORK ADMINISTRATOR Work Phone: [facility] 06-26-2022 10:32-0500 Body height 177.8 cm Orlando Erica REFRIGERATOR MOVER.SOCIAL WORK ADMINISTRATOR Work Phone: [facility] 06-26-2022 10:32-0500 Body weight 79.83 kg Orlando Erica REFRIGERATOR MOVER.SOCIAL WORK ADMINISTRATOR Work Phone: [facility] 06-26-2022 10:32-0500 Diastolic blood pressure 80 mm[Hg] Orlando Erica REFRIGERATOR MOVER.SOCIAL WORK ADMINISTRATOR Work Phone: [facility] 06-26-2022 10:32-0500 Heart rate 107 /min Orlando Erica REFRIGERATOR MOVER.SOCIAL WORK ADMINISTRATOR Work Phone: [facility] 06-26-2022 10:32-0500 SaO2% (BldA) [Mass fraction] 98 % Orlando Erica REFRIGERATOR MOVER.SOCIAL WORK ADMINISTRATOR Work Phone: [facility] 06-26-2022 10:32-0500 Systolic blood pressure 100 mm[Hg] Orlando Erica REFRIGERATOR MOVER.SOCIAL WORK ADMINISTRATOR Work Phone: [facility] 06-17-2022 14:40-0500 Body temperature 98.2 [degF] Jasmine Athy PA-C Work Phone: [facility] 06-17-2022 14:40-0500 Body weight 79.65 kg Jasmine Athy PA-C Work Phone: [facility] 06-17-2022 14:40-0500 Diastolic blood pressure 92 mm[Hg] Jasmine Athy PA-C Work Phone: [facility] 06-17-2022 14:40-0500 Heart rate 70 /min Jasmine Athy PA-C Work Phone: [facility] 06-17-2022 14:40-0500 Respiratory rate 18 /min Jasmine Athy PA-C Work Phone: [facility] 06-17-2022 14:40-0500 SaO2% (BldA) [Mass fraction] 98 % Jasmine Athy PA-C Work Phone: [facility] 06-17-2022 14:40-0500 Systolic blood pressure 140 mm[Hg] Jasmine Athy PA-C Work Phone: [facility] 03-07-2021 07:39-0500 Body height 180.3 cm Pcp Unknown [facility] 03-07-2021 07:39-0500 Body temperature 96.62 [degF] Pcp Unknown [facility] 03-07-2021 07:39-0500 Body weight 81.2 kg Pcp Unknown [facility] 03-07-2021 07:39-0500 Diastolic blood pressure 91 mm[Hg] Pcp Unknown [facility] 03-07-2021 07:39-0500 Heart rate 79 /min Pcp Unknown [facility] 03-07-2021 07:39-0500 Respiratory rate 16 /min Pcp Unknown [facility] 03-07-2021 07:39-0500 SaO2% (BldA) [Mass fraction] 97 % Pcp Unknown [facility] 03-07-2021 07:39-0500 Systolic blood pressure 137 mm[Hg] Pcp Unknown [facility] 02-05-2021 12:01-0400 Diastolic blood pressure 103 [...] 04-02-2023 Refill Ana napier MD Work Phone: [facility] Procedures Date Procedure Procedure Detail Performing Clinician Start: 01-08-2023 INFLUENZA VACCINE, A GE 6 MO - 64 YR, QUADRIVALENT (AFLURIA, FLULAVAL, FLUZONE) Ana Kaiser MD Work Phone: Start: 01-03-2023 Radiologic exam ches t 2 views Christiano Park APRN.SOCIAL WORK ADMINISTRATOR Work Phone: Start: 01-03-2023 STREP A MOLECULAR [...] Ct maxillofacial w/o contrast material Magy Medina REFRIGERATOR MOVER - SOCIAL WORK ADMINISTRATOR Work Phone: Start: 08-25-2020 Radex temporomandble jt opn & clsd mouth bilat Magy Medina REFRIGERATOR MOVER - SOCIAL WORK ADMINISTRATOR Work Phone: Start: 08-03-2020 Radiologic examinati on [...] Start: 08-15-2018 End: 08-15-2018 Dental Hygienist Shirley Juaerz DDS Start: 08-15-2018 End: 08-15-2018 Established Dental [...] Tetanus (Td or Tdap) Booster [facility] Start: 12-25-2028 Urine microalbumin profile [facility] Start: 01-09-2024 Annual PCP Team Chronic Disease Visit Annual PCP Team Chronic Disease Visit [facility] Start: 01-09-2024 Covid-19 Vaccine (#1) Covid-19 Vaccine (#1) [facility] Immunizations Immunization Date Immunization Notes Care Provider Fa cility 01-08-2023 influenza, injectabl e, quadrivalent, contains preservative Ana Kaiser MD Work Phone: [facility] 01-08-2023 pneumococcal (PCV20) vaccine, 20 valent (PREVNAR 20) Ana Kaiser MD Work Phone: [facility] 01-08-2023 pneumococcal Conjuga te, unspecified formulation Ana Kaiser MD Work Phone: [facility] Work Phone: 06-18-2020 tuberculin skin test ; purified protein derivative solution, intradermal Sally Matt DDS Work Phone: [facility] 02-11-2019 influenza, injectabl e, quadrivalent, preservative free Sally Matt DDS Work Phone: [facility] 02-11-2019 influenza virus vacc ine, unspecified formulation Sally Matt DDS Work Phone: [facility] 12-25-2018 hepatitis A vaccine, adult dosage Sally Matt DDS Work Phone: [facility] 12-25-2018 pneumococcal polysaccharide vaccine, 23 valent Sally Matt DDS Work Phone: [facility] 12-25-2018 tetanus toxoid, redu jonathan diphtheria toxoid, and acellular pertussis vaccine, adsorbed Sally Matt DDS Work Phone: [facility] Payers Date Payer Category Payer Medicaid [id number] 2020 [employer] [id number] 2019 Unknown SHANNEN BEAL [facility] MEDICAID xxxxxxxxxxx 2019-Present [phone] CLAIMS DEPARTMENT [address] [place] [address] xxxxxxxxxxx [id number] 2019 Medicaid [id number] 2019 Unknown [id number] 1992 Unknown [id number] 1992 Unknown [id number] 1992 Unknown [id number] 1992 Unknown [id number] 1992 Unknown [id number] 1992 Unknown [id number] 1992 Unknown [id number] 1949 Unknown [id number] Unknown [employer] Social History Date Type Detail Facility Sex Assigned At Male Wayne oliva [facility] Start: 05-14-2019 End: 09-21-2019 Tobacco smoking status NHIS [facility] Start: 05-14-2019 End: 06-24-2020 Alcohol intake Current drinker of alcohol (finding) [facility] Work Phone: Start: 05-14-2019 History SDOH Education 13 [facility] Work Phone: Start: 05-14-2019 History SDOH Financial 5 [facility] Work Phone: Start: 05-14-2019 History SDOH Food Worry 1 [employer] Work Phone: Start: 09-23-2018 End: 05-14-2019 History SDOH Transport Med 2 [facility] Work Phone: Start: 1990 Sex Assigned At Not on file [facility] Work Phone: History of tobacco use Cigarette Smoker [facility] [place] Start: 07-08-2019 End: 09-21-2019 Cigarettes smoked current (pack per day) - Reported [facility] Work Phone: Functional Status Date Assessment Result Facility NEGATED: Highlighted row Functional performance Functional status health issues are not documented Disease -Gastroenterology -[facility] 6 [facility] Work Phone: Mental Status Date Assessment [...] OV Pt states he was seen at [facility] ER 03/09/23 for anxiety. States he was given hydroxyzine 25mg 4X daily prn & lexapro 10mg daily. Pt states meds are working well & is asking for a refill. Pt did not have an ER FU in office. Next appt is 05/10/23. Please advise. 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 ==PHARMACY TEAM== PEER TO PEER REQUESTED Dept. 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 Drug & CPT/HCPCS code submitted: Botox J0585 Dose & Frequency Submitted: 100 units every 12 weeks for 1 year Contact Name (if applicable): NA How to complete (verbal or written): Verbal Phone # to call (if verbal): [phone] Timeframe to complete/Call to Schedule: NA Pending Case/Reference #: [id number] Letter scanned in chart (Y/N): Yes Comments: N/A documented in this encounter [facility] 03-25-2023 Miscellaneous Notes My Chart message was sent to patient requesting him to give [employer] his permission to allow us to act on his behalf to appeal denied Botox injections. documented in this encounter [facility] 03-06-2023 Miscellaneous Notes Referral entered. Sarita Hassan [...] EMG guidance: No documented in this encounter [facility] 02-28-2023 Miscellaneous Notes Patient has been identified [...] Gemma Jackson LPN. documented in this encounter [facility] 02-28-2023 Miscellaneous Notes Patient has been identified [...] Gemma Jackson LPN. documented in this encounter [facility] 02-27-2023 Note HNO ID: [id number] Author: Jen Martinez MD Service: ? Author [...] relief so wi (more content not included)... [facility] 01-08-2023 Note HNO ID: [id number] Author: Ana Kaiser MD Service: ? Author Type: Physician Type: Progress Notes Filed: 02/03/2023 4:36 PM Note Text: This note was created using [employer]. Subjective Elías Leroy is a 32 year [...] exercise and adequate sleep. Ana Kaiser MD [facility] 01-08-2023 History of Present illness Narrative This note was created using [employer]. Subjective Elías Leroy is a 32 year [...] Ana Kaiser MD documented in this encounter [facility] 01-07-2023 Note HNO ID: [id number] Author: Orlando Maldonado APRN.SOCIAL WORK ADMINISTRATOR Service: ? Author Type: Nurse Practitioner Type: [...] to keep it. (more content not included)... [facility] 01-07-2023 History of Present illness Narrative SUBJECTIVE [...] Orlando Maldonado APRN-SILVER documented in this encounter [facility] 01-03-2023 Note HNO ID: [id number] Author: Christiano Park APRN.CNP Service: ? Author [...] become severe go to ER. Christiano Park APRN.[facility] 01-03-2023 Note HNO ID: [id number] Author: Nilda Piña RT(R) Service: ? Author Type: Certified Shorthand Reporter Type: Progress Notes Filed: 01/03/2023 4:52 PM [...] RT Caroline(R) January 03, 2023 4:46 PM [facility] 01-03-2023 History of Present illness Narrative Subjective [...] become severe go to ER. Christiano Park APRN.SOCIAL WORK ADMINISTRATOR documented in this encounter [facility] 12-09-2022 Note HNO ID: [id number] Author: Zahida Nelson APRN.SILVER Service: ? Author Type: Nurse Practitioner Type: Progress Notes Filed: 12/09/2022 2:44 PM Note Text: Subjective The history is provided by the patient. No chute puller was used. HPI Elías Leroy is a [...] have confirmed and edited as necessary, the [facility] Review of Systems Constitutional: Negative [...] detail warranting prompt ER evaluation. Zahida Nelson APRN.[facility] 12-09-2022 History of Present illness Narrative Images from the original note were not included. Subjective The history is provided by the patient. No chute puller was used. HPI Elías Leroy is a [...] have confirmed and edited as necessary, the [facility] Review of Systems Constitutional: Negative [...] Zahida Nelson APRN.SILVER documented in this encounter [facility] 10-30-2022 Note HNO ID: [id number] Author: Duong Burton APRN.CNP Service: ? Author [...] of care. This note was generated using [employer] ([employer]) software. It may contain errors in wording, punctuation, or spelling. Duong Burton APRN.[facility] 10-30-2022 History of Present illness Narrative Subjective [...] of care. This note was generated using [employer] software. It may contain errors in wording, punctuation, or spelling. Duong Burton APRN.SOCIAL WORK ADMINISTRATOR documented in this encounter [facility] 06-29-2022 Miscellaneous Notes Attempted to reach patient x 3 with message stating Your call did not go though please try again. My Chart message sent to patient with below recommendations. Please call patient and let him know labs are back and vitamin D is low. I sent in a daily vitamin D supplement. Otherwise labs are stable. documented in this encounter [facility] 06-26-2022 Note HNO ID: [id number] Author: Orlando Maldonado APRN.CNP Service: ? Author [...] depression is agnieszka (more content not included)... [facility] 06-26-2022 History of Present illness Narrative CHIEF [...] parts of this document were created using [employer] and therefore may contain grammatical errors. Patient [...] Orlando Maldonado APRN-SILVER documented in this encounter [facility] 06-17-2022 Note HNO ID: [id number] Author: Jasmine Jj PA-C Service: ? Author Type: Physician Wiring Technician Type: Progress Notes Filed: 06/17/2022 2:57 PM [...] RELIEF) 50 mcg/actuation nasal spray Use 1 Freedom in each nostril once daily. (Patient not [...] - CONSULT TO ENT Jasmine Jj PA-C [facility] 06-17-2022 History of Present illness Narrative This note was created using [employer]. Subjective Elías Leroy is a 32 year [...] RELIEF) 50 mcg/actuation nasal spray Use 1 Freedom in each nostril once daily. (Patient not [...] Jasmine Jj PA-C documented in this encounter [facility] 05-30-2022 Note HNO ID: [id number] Author: GENE Chapin Service: ? Author Type: Physician Wiring Technician Type: Progress Notes Filed: 05/30/2022 11:11 AM Note Text: This note was created using [employer]. Subjective Elías Leroy is a 32 year [...] RELIEF) 50 mcg/actuation nasal spray Use 1 Freedom in each nostril once daily. (Patient not [...] detail warranting prompt ER evaluation. GENE Chapin [facility] 03-22-2020 Chief complaint Narrative - Reported Neurologic [...] to medical records for additional detailed information. [facility] [address] Work Phone: 03-22-2020 History of Present illness [...] Mr. Leroy is a 30 years old -Bel[place] male with complaints of some other somatic and constitutional problems along with chronic right jaw pain. Over the last several months he went to multiple ERs, including , [facility], [place], [facility] and [facility] with similar complaints. He also felt that [...] gait or balance issues. No visual symptoms. [facility] [address] Work Phone: documented in this encounter [facility] [employer] Phone: Evaluation note* Diagnosis Sore throat- Primary Acute pharyngitis Dysphagia, unspecified type documented in this encounter [facility] [employer] Phone: Evaluation note* Diagnosis Jaw pain- Primary documented in this encounter [facility] Work Phone: Evaluation note* Diagnosis Sinus congestion- Primary Other diseases of nasal cavity and sinuses documented in this encounter [facility] note* Diagnosis Wellness examination- Primary Obtunded Other [...] for seeking consultation documented in this encounter [facility] note* Diagnosis Vitamin D deficiency- Primary Unspecified vitamin D deficiency [facility] Diagnosis Impingement of right ulnar nerve- Primary documented in this encounter [facility] note* Diagnosis Boil- Primary Carbuncle and furuncle of unspecified site documented in this encounter [facility] note* Diagnosis URI, acute- Primary Acute upper respiratory infections of unspecified site Sore throat Acute pharyngitis Acute cough SOB (shortness of breath) Shortness of breath documented in this encounter [facility] note* Diagnosis Acute URI- Primary Acute upper respiratory infections of unspecified site Mild intermittent reactive airway disease with acute exacerbation documented in this encounter [facility] note* Diagnosis Tremor of jaw (noted on [...] single bacterial disease documented in this encounter [facility] note* Diagnosis Tremor of jaw (noted on left side) and both outstretched hands documented in this encounter [facility] note* Diagnosis Mild intermittent reactive airway disease with acute exacerbation [facility] Instructions* Estefani Salgado PA - 08/25/2020 Please follow-up with your PCP. Please return to the emergency department for new or worsening symptoms. Please take naproxen as needed for symptoms. * Attachments The following attachments cannot be sent through Care Everywhere. * Head or Face Pain (Maltese) [facility] Discharge instructions* Attachments The following attachments cannot be sent through Care Everywhere. * Dysphagia: General Info (Maltese) * Swallowing: Exercises (Maltese) * Sore Throat (Maltese) [facility] Discharge instructions* Instructions* Hank Greene PA - 02/05/2021 Please take medication as prescribed Please follow up with your Physicians as instructed in this discharge paperwork Thank you for choosing [facility] I appreciate your patience Please return to the emergency department if your symptoms worsen, or new symptoms develop as discussed [facility] Work Phone: Instructions* Name Dates Details Instructions not documented [id number] Work Phone: Reason for referral (narrative)* Outpatient Procedure (Routine) - Authorized Specialty Diagnoses / Procedures Referred By Tiffani mcguire Ref[facility] Diagnoses Mild intermittent reactive airway disease with acute exacerbation Procedures SPIROMETRY - BASELINE AND POST DILATOR BRNCDILAT RSPSE SPMTRY PRE&POST-BRNCDILAT ADMN Ana Kaiser MD [address] [place] [address] [facility] [address] [place] [address] Referral ID Status Reason Start Date Expiration Date Visits Requested Visits Authorized [id number] Authorized Auto-Generat ed Referral 01/08/2023 02/07/2024 1 1 * Consult, Test, Treat (Routine) - Authorized Specialty Diagnoses / Procedures Referred By Tiffani mcguire Referred To Contact Neurology Diagnoses Tremor of both outstretched hands Procedures CONSULT TO NEUROLOGY OFFICE/OUTPATIENT NEW HIGH MDM 60-[place] [address] [place] [address] Referral ID Status Reason Start Date Expiration Date Visits Requested Visits Authorized [id number] Authorized PCP Requested Referral 01/08/2023 01/08/2024 1 1 [facility] Instructions Date Instruction Lonnie ayers Take new [...] Documents on File Type Date Recorded Patient Fiber Optics Supervisor Expl anation ACP-Advance Directive ACP-Power of Provider Service Representative Latest Code Status on File Code Status Date Activated Date Inactivated Comments Full Code 09/24/2019 2:13 PM 09/24/2019 9:21 PM Documents on File Type Date Recorded 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 Follow-up with urology as scheduled in the next 8 days for evaluation of the bloody semen. * Attachments The following attachments cannot be sent through Care Everywhere. * Gonorrhea and Chlamydia Tests (Maltese) * Urethritis (Maltese) * Male Anatomy: Anatomy Sketch (Maltese) documented in this encounter* Instructions* Inder Ramos DO - 09/24/2019 Genital Warts: Care Instructions [...] than a towel. ? Do not use [id number] wart removal products to treat genital warts. [...] Where can you learn more? Go to [email or web address] and sign in to your [employer] account. Enter J745 in the Search Health Information box to learn more about Genital Warts: Care Instructions. If you do not have an account, please click on the Sign Up Now link. Current as of: June 17, 2019 Content Version: 12. [employer]. Care instructions adapted under license by [employer]. If you have questions about a medical condition or this instruction, always ask your healthcare professional. [employer] disclaims any warranty or liability for your use of this information. documented in this encounter* Attachments The following attachments cannot be sent through Care Everywhere. * TMD (Temporomandibular Disorder) (Maltese) * Anxiety Disorder (Maltese) documented in this encounter Assessments Diagnosis TMJ pain dysfunction syndrome- Primary Other specified temporomandibular joint disorders Anxiety Anxiety state, unspecified Diagnosis Condyloma acuminatum of penis Condyloma acuminatum Condyloma acuminatum of scrotum Condyloma acuminatum Diagnosis Urethritis- Primary Urethritis, unspecified Reason for Referral Specialty Diagnoses / Procedures Referred By Tiffani mcguire Referred To Contact Ent - Otolaryngology Diagnoses Sinus congestion Procedures CONSULT TO ENT OFFICE/OUTPATIENT [facility] 60-74 MINUTES Jasmine Jj, KIMBER [address] [place] [address] Referral ID Status Reason Start Date Expiration Date Visits Requested Visits Authorized [id number] Authorized PCP Requested Referral 06/17/2022 06/17/2023 1 [...] DATE CREATED AUTHOR AUTHOR'S ORGANIZ ATION 07/15/2020 [facility] DATE CREATED AUTHOR AUTHOR'S ORGANIZ ATION 09/17/2020 [employer] DATE CREATED AUTHOR AUTHOR'S ORGANIZ ATION 02/11/2021 [facility] DATE CREATED AUTHOR AUTHOR'S ORGANIZ ATION 02/25/2021 [employer] DATE CREATED AUTHOR AUTHOR'S ORGANIZ ATION 03/10/2021 [facility] [place] DATE CREATED AUTHOR AUTHOR'S ORGANIZ ATION 05/11/2021 [facility] [employer] [facility] DATE CREATED AUTHOR AUTHOR'S ORGANIZ ATION 06/05/2021 [facility] DATE CREATED AUTHOR AUTHOR'S ORGANIZ ATION 04/18/2023 [facility] Reason for Visit (unrecogniz ed section and [...] Care Teams (unrecognized sec tion and content) Laboratory Tech Relationship Specialty Start Date End Date Ana Kaiser MD [address] [place], [place] [id number] PCP - General Internal Medicine 06/26/22 Laboratory Tech Relationship Specialty Start Date End Date Ana Kaiser MD [address] [place], [place] [id number] PCP - General Internal Medicine 06/26/22 Laboratory Tech Relationship Specialty Start Date End Date Ana Kaiser MD [address] [place] [address] PCP - General Internal Medicine 06/26/22 Laboratory Tech Relationship Specialty Start Date End Date Ana Kaiser MD [address] [place] [address] PCP - General Internal Medicine 06/26/22 Laboratory Tech Relationship Specialty Start Date End Date Ana Kaiser MD [address] [place] [address] PCP - General Internal Medicine 06/26/22 Laboratory Tech Relationship Specialty Start Date End Date Ana Kaiser MD [address] [place] [address] PCP - General Internal Medicine 06/26/22 Laboratory Tech Relationship Specialty Start Date End Date Ana Kaiser MD [address] [place] [address] PCP - General Internal Medicine 06/26/22 Laboratory Tech Relationship Specialty Start Date End Date Ana Kaiser MD [address] [place] [address] PCP - General Internal Medicine 06/26/22 Laboratory Tech Relationship Specialty Start Date End Date Ana Kaiser MD [address] [place] [address] PCP - General Internal Medicine 06/26/22 Laboratory Tech Relationship Specialty Start Date End Date Sally Matt, KOKIS [address] [place] [address] [place] [address] Resident Dentistry 01/26/20 Tamiko Munoz, REFRIGERATOR MOVER-COSTUMER ASSISTANT [address] [place] [address] [place] Psychiatry 01/26/20 Ava HenryRosy S [address] [place] [address] [place] [address] Resident Dentistry 05/27/20 Diandra Stevens DDS [address] [place] [address] Resident Dentistry 06/24/20 Lusiito Lewis S [address] [place] [address] [place] [address] Resident Dentistry 07/22/20 Source Comments (unrecognize d section and content) In the event this informatio n is protected by the Federal Confidentiality of Alcohol and Drug Abuse Patient Records regulations: The Federal rules restrict any use of the information to criminally investigate or prosecute any alcohol or drug abuse patient.[facility] the event this information is protected by the Federal Confidentiality of Alcohol and Drug Abuse Patient Records regulations: The Federal rules restrict any use of the information to criminally investigate or prosecute any alcohol or drug abuse patient.[facility] Center[facility] the event this information is protected by the Federal Confidentiality of Alcohol and Drug Abuse Patient Records regulations: The Federal rules restrict any use of the information to criminally investigate or prosecute any alcohol or drug abuse patient.[facility] Center[facility] the event this information is protected by the Federal Confidentiality of Alcohol and Drug Abuse Patient Records regulations: The Federal rules restrict any use of the information to criminally investigate or prosecute any alcohol or drug abuse patient.[facility] Center[facility] the event this information is protected by the Federal Confidentiality of Alcohol and Drug Abuse Patient Records regulations: The Federal rules restrict any use of the information to criminally investigate or prosecute any alcohol or drug abuse patient.[facility] CenterIn the event this information is protected by [...] or prosecute any alcohol or drug abuse patient.[facility] Center[facility] the event this information is protected by the Federal Confidentiality of Alcohol and Drug Abuse Patient Records regulations: The Federal rules restrict any use of the information to criminally investigate or prosecute any alcohol or drug abuse patient.[facility] Center[facility] the event this information is protected by the Federal Confidentiality of Alcohol and Drug Abuse Patient Records regulations: The Federal rules restrict any use of the information to criminally investigate or prosecute any alcohol or drug abuse patient.[facility] Center[facility] the event this information is protected by the Federal Confidentiality of Alcohol and Drug Abuse Patient Records regulations: The Federal rules restrict any use of the information to criminally investigate or prosecute any alcohol or drug abuse patient.[facility] Center[facility] the event this information is protected by the Federal Confidentiality of Alcohol and Drug Abuse Patient Records regulations: The Federal rules restrict any use of the information to criminally investigate or prosecute any alcohol or drug abuse patient.[facility] Center[facility] the event this information is protected by the Federal Confidentiality of Alcohol and Drug Abuse Patient Records regulations: The Federal rules restrict any use of the information to criminally investigate or prosecute any alcohol or drug abuse patient.[facility] Center[facility] the event this information is protected by the Federal Confidentiality of Alcohol and Drug Abuse Patient Records regulations: The Federal rules restrict any use of the information to criminally investigate or prosecute any alcohol or drug abuse patient.[facility] CenterIn the event this information is protected by the Federal Confidentiality of Alcohol and Drug Abuse Patient Records regulations: The Federal rules restrict any use of the information to criminally investigate or prosecute any alcohol or drug abuse patient.[facility] FOR RECORDS PERTAINING TO PATIENTS WHO ARE [...] BE BASED ON THE PRIMARY CLINICAL RECORDS. [facility] [employer] [facility]. provides no warranty or guarantee of the accuracy or completeness of information in this document.
--- NOTE | 2023-05-11 16:27 | ED.RN ---
Patient asked that this RN call his girlfriend, Shannan, with update. Called and informed that we are admitting to ICU room 203
[2023-05-11] MEDS: Lactated Ringers 1,000 ML 75 ML IV (17:32)
[2023-05-11] MEDS: 0.9% Saline Lock 10 ML Syringe IV (17:44)
[2023-05-11] MEDS: DiphenhydrAMINE 50 MG/ML Syringe 25 MG IV ×2 (17:44→23:08)
[2023-05-12] VITALS (24 sets, daily range): BP systolic 107–155; BP diastolic 55–91; PULSE 55–100; RESP 12–23; TEMP 36.1–36.8; O2SAT 97–100; BMI 27.9
[2023-05-12] MEDS: DiphenhydrAMINE 50 MG/ML Syringe 25 MG IV ×4 (05:49→22:49)
[2023-05-12] MEDS: 0.9% Saline Lock 10 ML Syringe IV ×3 (05:50→17:40)
[2023-05-12 06:28] LABS: ALB/GLOB Ratio 0.9 RATIO (0.9-2.4); AST(SGOT) 13 U/L (15-37); Alanine Aminotransfer ALT/SGPT 17 U/L (16-61); Albumin, Serum 2.8 g/dL (3.2-5.0); Alkaline Phosphatase 67 U/L (45-117); Anion Gap 4 (5-15); BUN 9 mg/dL (7-18); Calcium,Total 7.5 mg/dL (8.5-10.1); Chloride 115 mmol/L (98-107); EST Glomerular Filtration Rate 104 mL/min (>60); Est Glom Filt Rate - Afr Amer 126 mL/min (>60); Estimated Creatinine Clearance 137.16 ml/min; Globulin 3.1 g/dL (2.2-4.2); Glucose 107 mg/dL (74-106); Magnesium 1.6 mg/dL (1.6-2.6); Phosphorus 3.6 mg/dL (2.5-4.9); Potassium 3.7 mmol/L (3.5-5.1); Protein, Total 5.9 g/dL (6.4-8.2); Sodium Level 142 mmol/L (136-145)
[2023-05-12 06:40] LABS: Absolute Lymphocyte Count 1.34 X10^3/uL (0.83-4.51); Basophil# 0.01 X10^3/uL; Basophil% 0.1 % (0-1); Eosinophil# 0.01 X10^3/uL; Eosinophils% 0.1 % (0-5); Hematocrit 37.9 % (40-54); Hemoglobin 12.1 g/dL (13.0-16.5); Lymphocyte # 1.34 X10^3/ul (0.83-4.51); Lymphocyte % 17.3 % (19-41); Mean Corp Hgb Conc 31.9 g/dL (32-36); Mean Corpuscular Hgb 26.9 pg (27.0-32.0); Mean Corpuscular Volume 84.2 fL (80-94); Mean Platelet Vol. 10.6 fl (6.2-12.0); Monocyte# 0.37 X10^3/uL; Monocyte% 4.8 % (0-10); NRBC Flagged by Analyzer 0 % (0-5); Neutrophil # 5.99 X10^3/uL (2.7-7.7); Neutrophil % 77.3 % (47-70); Platelet Count 252 K/mm3 (150-450); RBC Distribution Width CV 12.9 % (11.6-14.6); RBC Distribution Width SD 39.7 fl (35.1-43.9); White Blood Count 7.8 K/mm3 (4.4-11.0)
--- NOTE | 2023-05-12 08:17 | PCM.PROGNOTE ---
Subjective Subjective no issues overnight. feels similar to yesterday. denies worsening of symptoms. Objective Data Objective Data Vital Signs: Vital Signs Temp Pulse Resp BP Pulse Ox O2 Del Method O2 Flow Rate 97.0 F L 58 L 14 114/59 L 98 Room Air 2 05/12/23 08:00 05/12/23 08:00 05/12/23 08:00 05/12/23 08:00 05/12/23 08:00 05/12/23 08:00 05/12/23 05:00 Oxygen Flow Rate (L/min) 2 Oxygen Delivery Method Room Air Weight: 90.8 kg Body Mass Index (BMI) 27.9 Intake & Output: Intake and Output for Last 24 Hours 05/10/23 05/11/23 05/12/23 23:59 23:59 23:59 Intake Total 520 / 520 1000 / 1000 Output Total 850 / 850 Balance 520 / 520 150 / 150 Lab / Micro Data 05/12/23 06:20 05/12/23 05:40 Labs: Laboratory Results - last 24 hr 05/11/23 14:37: WBC 6.5, RBC 5.01, Hgb 13.6, Hct 43.1, MCV 86.0, MCH 27.1, MCHC 31.6 L, RDW Std Deviation 40.6, RDW Coeff of Omid 13.1, Plt Count 282, MPV 10.6, Immature Gran % (Auto) 0.300, Neut % (Auto) 45.1 L, Lymph % (Auto) 42.6 H, [place] % (Auto) 8.3, Eos % (Auto) 3.1, Baso % (Auto) 0.6, Absolute Neuts (auto) 2.9, Absolute Lymphs (auto) 2.78, Nucleated RBC % 0, Sodium 142, Potassium 3.6, Chloride 109 H, Carbon Dioxide 30.0, Anion Gap 3 L, BUN 10, Creatinine 1.29, Estim Creat Clear Calc 97.27, Est GFR (MDRD) Af Amer 83, Est GFR (MDRD) Non-Af 69, BUN/Creatinine Ratio 7.8 L, Glucose 124 H, Calcium 9.0, Total Bilirubin 0.70, AST 13 L, ALT 22, Alkaline Phosphatase 87, Total Protein 7.3, Albumin 3.6, Globulin 3.7, Albumin/Globulin Ratio 1.0 05/12/23 05:40: WBC Cancelled, Corrected WBC Cancelled, RBC Cancelled, Hgb Cancelled, Hct Cancelled, MCV Cancelled, MCH Cancelled, MCHC Cancelled, RDW Std Deviation Cancelled, RDW Coeff of Omid Cancelled, Plt Count Cancelled, MPV Cancelled, Immature Gran % (Auto) Cancelled, Neut % (Auto) Cancelled, Lymph % (Auto) Cancelled, [place] % (Auto) Cancelled, Eos % (Auto) Cancelled, Baso % (Auto) Cancelled, Absolute Neuts (auto) Cancelled, Absolute Lymphs (auto) Cancelled, Total Counted Cancelled, Neutrophils % (Manual) Cancelled, Band Neutrophils % Cancelled, Lymphocytes % (Manual) Cancelled, Monocytes % (Manual) Cancelled, Eosinophils % (Manual) Cancelled, Basophils % (Manual) Cancelled, Metamyelocytes % Cancelled, Myelocytes % Cancelled, Promyelocytes % Cancelled, Blast Cells % Cancelled, Plasma Cell % (Manual) Cancelled, Other Cells % Cancelled, Nucleated RBC % Cancelled, Nucleated RBCs/100 WBC Cancelled, Differential Comment Cancelled, Diff Path Review Cancelled, Hypersegmented Neuts Cancelled, Atypical Lymphocytes Cancelled, Reactive Lymphocytes Cancelled, Smudge Cells Cancelled, Toxic Granulation Cancelled, Toxic Vacuolation Cancelled, Dohle Bodies Cancelled, Mitch Rods Cancelled, Platelet Estimate Cancelled, Plt Morphology Comment Cancelled, RBC Morphology Cancelled 05/12/23 05:40: RBC Morphology Cancelled, Polychromasia Cancelled, Hypochromasia Cancelled, Poikilocytosis Cancelled, Basophilic Stippling Cancelled, Anisocytosis Cancelled, Microcytosis Cancelled, Macrocytosis Cancelled, Spherocytes Cancelled, Sickle Cells Cancelled, Target Cells Cancelled, Tear Drop Cells Cancelled, Ovalocytes Cancelled, Stomatocytes Cancelled, [place] Bodies Cancelled, [place] Cells Cancelled, Bite Cells Cancelled, Crenated Cell Cancelled, Acanthocytes (Spur) Cancelled, Rouleaux Cancelled, Schistocytes Cancelled, Sodium 142, Potassium 3.7, Chloride 115 H, Carbon Dioxide 23.0, Anion Gap 4 L, BUN 9, Creatinine 0.90, Estim Creat Clear Calc 137.16, Est GFR (MDRD) Af Amer 126, Est GFR (MDRD) Non-Af 104, BUN/Creatinine Ratio 10.0, Glucose 107 H, Calcium 7.5 L, Phosphorus 3.6, Magnesium 1.6, Total Bilirubin 0.70, AST 13 L, ALT 17, Alkaline Phosphatase 67, Total Protein 5.9 L, Albumin 2.8 L, Globulin 3.1, Albumin/Globulin Ratio 0.9, TSH 0.10 L 05/12/23 06:20: WBC 7.8, RBC 4.50 L, Hgb 12.1 L, Hct 37.9 L, MCV 84.2, MCH 26.9 L, MCHC 31.9 L, RDW Std Deviation 39.7, RDW Coeff of Omid 12.9, Plt Count 252, MPV 10.6, Immature Gran % (Auto) 0.400, Neut % (Auto) 77.3 H, Lymph % (Auto) 17.3 L, [place] % (Auto) 4.8, Eos % (Auto) 0.1, Baso % (Auto) 0.1, Absolute Neuts (auto) 6.0, Absolute Lymphs (auto) 1.34, Nucleated RBC % 0 Micro: Microbiology 05/11/23 15:17 Mucosa - Throat Streptococcus pyogenes (PCR) - Final Radiography Diagnostic Testing: Radiology Impression Chest X-Ray 05/11/23 15:15 IMPRESSION: No evidence of acute cardiopulmonary process. Electronically Signed: Orville Rick DO at 15:24 EST Reading Location ID and State: [address] [place] [address] , Service support , Physical Exam Const alert General Appearance: cooperative HEENT Mouth: oral and palatal mucosa normal and tongue normal Neck full ROM and no lymphadenopathy Resp Resp Narrative: no stridor Assessment & Plan Assessment/Plan (1) Angioedema: PLAN: 72 year old with pharyngeal edema -subjectively similar to yesterday. voice unchanged. likely underlying reflux symptoms -would continue to observe
[2023-05-12] MEDS: dexAMETHasone 10 MG/ML Vial IV (09:39)
[2023-05-12] MEDS: Famotidine 200 MG/20 ML MDV 20 MG in 0.9% Normal Saline (Pres. free 8 ML 300 MG IV ×2 (09:39→22:56)
--- NOTE | 2023-05-12 12:27 | PCM.PN.HOSP ---
Subjective Subjective Swelling is significantly, denies any significant shortness of breath. ENT would like to observe him for 1 more day Objective Data Objective Data Vital Signs: Vital Signs Temp Pulse Resp BP Pulse Ox O2 Del Method O2 Flow Rate 98.0 F 64 16 152/79 H 100 Room Air 2 05/12/23 12:00 05/12/23 12:00 05/12/23 12:00 05/12/23 12:00 05/12/23 12:00 05/12/23 12:00 05/12/23 05:00 Oxygen Flow Rate (L/min) 2 Oxygen Delivery Method Room Air Weight: 200 lb 2.876 oz Body Mass Index (BMI) 27.9 Intake & Output: Intake and Output for Last 24 Hours 05/11/23 05/12/23 05/13/23 03:59 03:59 03:59 Intake Total 520 / 520 1010 / 1010 Output Total 850 / 850 Balance 520 / 520 160 / 160 Lab / Micro Data 05/12/23 06:20 05/12/23 05:40 Labs: Laboratory Results - last 24 hr 05/11/23 14:37: WBC 6.5, RBC 5.01, Hgb 13.6, Hct 43.1, MCV 86.0, MCH 27.1, MCHC 31.6 L, RDW Std Deviation 40.6, RDW Coeff of Omid 13.1, Plt Count 282, MPV 10.6, Immature Gran % (Auto) 0.300, Neut % (Auto) 45.1 L, Lymph % (Auto) 42.6 H, Brooks % (Auto) 8.3, Eos % (Auto) 3.1, Baso % (Auto) 0.6, Absolute Neuts (auto) 2.9, Absolute Lymphs (auto) 2.78, Nucleated RBC % 0, Sodium 142, Potassium 3.6, Chloride 109 H, Carbon Dioxide 30.0, Anion Gap 3 L, BUN 10, Creatinine 1.29, Estim Creat Clear Calc 97.27, Est GFR (MDRD) Af Amer 83, Est GFR (MDRD) Non-Af 69, BUN/Creatinine Ratio 7.8 L, Glucose 124 H, Calcium 9.0, Total Bilirubin 0.70, AST 13 L, ALT 22, Alkaline Phosphatase 87, Total Protein 7.3, Albumin 3.6, Globulin 3.7, Albumin/Globulin Ratio 1.0 05/12/23 05:40: WBC Cancelled, Corrected WBC Cancelled, RBC Cancelled, Hgb Cancelled, Hct Cancelled, MCV Cancelled, MCH Cancelled, MCHC Cancelled, RDW Std Deviation Cancelled, RDW Coeff of Omid Cancelled, Plt Count Cancelled, MPV Cancelled, Immature Gran % (Auto) Cancelled, Neut % (Auto) Cancelled, Lymph % (Auto) Cancelled, Brooks % (Auto) Cancelled, Eos % (Auto) Cancelled, Baso % (Auto) Cancelled, Absolute Neuts (auto) Cancelled, Absolute Lymphs (auto) Cancelled, Total Counted Cancelled, Neutrophils % (Manual) Cancelled, Band Neutrophils % Cancelled, Lymphocytes % (Manual) Cancelled, Monocytes % (Manual) Cancelled, Eosinophils % (Manual) Cancelled, Basophils % (Manual) Cancelled, Metamyelocytes % Cancelled, Myelocytes % Cancelled, Promyelocytes % Cancelled, Blast Cells % Cancelled, Plasma Cell % (Manual) Cancelled, Other Cells % Cancelled, Nucleated RBC % Cancelled, Nucleated RBCs/100 WBC Cancelled, Differential Comment Cancelled, Diff Path Review Cancelled, Hypersegmented Neuts Cancelled, Atypical Lymphocytes Cancelled, Reactive Lymphocytes Cancelled, Smudge Cells Cancelled, Toxic Granulation Cancelled, Toxic Vacuolation Cancelled, Dohle Bodies Cancelled, Mitch Rods Cancelled, Platelet Estimate Cancelled, Plt Morphology Comment Cancelled, RBC Morphology Cancelled 05/12/23 05:40: RBC Morphology Cancelled, Polychromasia Cancelled, Hypochromasia Cancelled, Poikilocytosis Cancelled, Basophilic Stippling Cancelled, Anisocytosis Cancelled, Microcytosis Cancelled, Macrocytosis Cancelled, Spherocytes Cancelled, Sickle Cells Cancelled, Target Cells Cancelled, Tear Drop Cells Cancelled, Ovalocytes Cancelled, Stomatocytes Cancelled, [place] Bodies Cancelled, [place] Cells Cancelled, Bite Cells Cancelled, Crenated Cell Cancelled, Acanthocytes (Spur) Cancelled, Rouleaux Cancelled, Schistocytes Cancelled, Sodium 142, Potassium 3.7, Chloride 115 H, Carbon Dioxide 23.0, Anion Gap 4 L, BUN 9, Creatinine 0.90, Estim Creat Clear Calc 137.16, Est GFR (MDRD) Af Amer 126, Est GFR (MDRD) Non-Af 104, BUN/Creatinine Ratio 10.0, Glucose 107 H, Calcium 7.5 L, Phosphorus 3.6, Magnesium 1.6, Total Bilirubin 0.70, AST 13 L, ALT 17, Alkaline Phosphatase 67, Total Protein 5.9 L, Albumin 2.8 L, Globulin 3.1, Albumin/Globulin Ratio 0.9, TSH 0.10 L 05/12/23 06:20: WBC 7.8, RBC 4.50 L, Hgb 12.1 L, Hct 37.9 L, MCV 84.2, MCH 26.9 L, MCHC 31.9 L, RDW Std Deviation 39.7, RDW Coeff of Omid 12.9, Plt Count 252, MPV 10.6, Immature Gran % (Auto) 0.400, Neut % (Auto) 77.3 H, Lymph % (Auto) 17.3 L, [place] % (Auto) 4.8, Eos % (Auto) 0.1, Baso % (Auto) 0.1, Absolute Neuts (auto) 6.0, Absolute Lymphs (auto) 1.34, Nucleated RBC % 0 Micro: Microbiology 05/11/23 15:17 Mucosa - Throat Streptococcus pyogenes (PCR) - Final Radiography Diagnostic Testing: Radiology Impression Chest X-Ray 05/11/23 15:15 IMPRESSION: No evidence of acute cardiopulmonary process. Electronically Signed: Orville Rick DO at 15:24 EST , Physical Exam Narrative General: Alert, Oriented x3, Cooperative, No apparent distress HEENT: Atraumatic, PERRLA, EOMI, Normocephalic Oral: Moist Mucosa, mild facial swelling Neck: Supple, No JVD Lungs: Clear to auscultation, Normal air movement, No rhonchi, No wheeze, No rales Cardiovascular: Regular rate, Regular Rhythm, Normal S1, Normal S2, No murmurs Abdomen: Soft, Non Tender, Non-Distended, No Hepato-splenomegaly Extremities: No edema, Capillary Refill Less than 3 Seconds Skin: No rashes, No breakdown Musculoskeletal: No Tenderness to Palpation of Joints or Extremities Neurological: Cranial nerves II-XII grossly intact, Motor Exam 5/5 strength throughout, Sensory exam intact to light touch and pain Psych/Mental Status: Normal Affect, Appropriate Assessment & Plan Assessment/Plan (1) Angioedema: PLAN: Plan 1. Acute angioedema ? Assume to be from Lexapro ? Continue with Decadron, Benadryl, famotidine ? Will have him evaluate by speech therapy and if cleared can start a diet ? Appreciate ENTs assistance 2. Anxiety ? Hold Lexapro, at this point would not risk different SSRI ? Recommend follow-up with outpatient psychiatry DVT: Ambulation Charges/Coding Visit Charges Inpatient E&M: [id number] Subs Hosp L2
[2023-05-12] MEDS: MELATONIN 3 MG TABLET PO (22:49)
[2023-05-13] VITALS (13 sets, daily range): BP systolic 119–142; BP diastolic 68–87; PULSE 51–81; RESP 14–20; TEMP 36.9–37; O2SAT 99–100; BMI 28.0
[2023-05-13] MEDS: DiphenhydrAMINE 50 MG/ML Syringe 25 MG IV (05:43)
[2023-05-13] MEDS: dexAMETHasone 10 MG/ML Vial IV (09:23)
[2023-05-13] MEDS: Famotidine 200 MG/20 ML MDV 20 MG in 0.9% Normal Saline (Pres. free 8 ML 300 MG IV (09:23)
[2023-05-13] MEDS: 0.9% Saline Lock 10 ML Syringe IV (09:24)
--- NOTE | 2023-05-13 10:27 | DS.PCM_ITS ---
Providers Date of Admission: 05/11/23 Date of Discharge: 05/13/23 Primary Care Physician: KEVIN Martel Consultations 05/11/23 18:03 Consult: ENT Routine Consulting Provider: Oleksandr Paul Reason for Consult: angioedema EMERGENT Consult: Yes MD Notified: Yes Date Notified: 05/11/23 Time Notified: 17:24 Method of Notification: ED Physician Initiated Reason For Visit: ANGIOEDEMA Diagnosis Discharge Diagnosis (1) Angioedema: Status: Acute Code(s): T78.3XXA - Angioneurotic edema, initial encounter Medications at Discharge Home Medications hydroxyzine HCl 25 mg tablet 25 mg PO 4X/DAY PRN PRN Breakthrough anxiety #40 tabs 03/09/23 mirtazapine 30 mg tablet (Remeron) 30 mg PO QHS 05/11/23 Hospital Course Operations None Procedures None Summary of Care Provided Minutes Spent on Discharge: 55 Hospital Course: Patient is a 33-year-old male with a past medical history as outlined was admitted through the ED on 05/11/2023 with a complaint of increased throat irr itation and swelling. He had been going on for about 3 hours and started on the day of admission. Patient denied taking any CONNOR inhibitor and had not been on any antibiotics or tried any new foods. Patient had been on Lexapro. He had been taken off of it for few days and had been restarted the day before admission. On admission in the ED due to concerns about his airway and airway team was called and he was given Decadron 10 mg x 1. He was also given Benadryl and famotidine. ENT was consulted and patient was evaluated by the bedside. He had laryngoscopy which showed full but not occlusive adenoid tissue with some cobblestoning of the posterior and lateral pharynx. Larynx was visualized and subglottis was totally normal and his voice was normal. Due to concerns about angioedema he was admitted to the ICU and monitored. Patient remained stable whilst there and he was saturating at 100% on room air. His hospital stay was unremarkable. It was thought that the Lexapro was likely the cause of the probable angioedema. This was therefore discontinued and entered as an allergy. Patient remained stable and was discharged home on 05/13/2023. He is follow-up with his primary care doctor within 1 to 2 weeks. He was counseled not to take Lexapro again due to the angioedema. Patient seen and examined prior to discharge. He had no active complaints and had an uneventful night. Review of systems otherwise negative. Labs and vitals reviewed. Medication reviewed and reconciled. Physical Exam Const alert, oriented x3 and no apparent distress General Appearance: cooperative and comfortable Orientation / Consciousness: awake and oriented to person HEENT normocephalic, head/scalp atraumatic and hearing grossly normal bilaterally Mouth: oral and palatal mucosa normal Eyes PERRL, EOMs intact bilaterally and conjunctivae normal Neck no lymphadenopathy and supple Resp normal respiratory effort, no retractions, no use of accessory muscles and clear to auscultation bilaterally Cardio regular rate, regular rhythm, S1 normal heart sound, S2 normal heart sound and no murmurs GI normal to inspection, nondistended, normoactive bowel sounds, soft to palpation, non-tender and non-distended Extremity normal to inspection, full ROM and no clubbing, cyanosis or edema Skin no rashes or lesions noted and no wounds Neuro oriented x3, CN's II-XII intact bilaterally, moves all extremities and no focal motor deficits Sensorium / Orientation: awake and alert Motor Exam: strength 5/5 throughout Psych affect normal Weight / BMI Weight Weight: 201 lb 0.985 oz Body Mass Index (BMI) 28.0 ABG / Lab / Microbiology Data 05/12/23 06:20 05/12/23 05:40 Microbiology: Microbiology 05/11/23 15:17 Mucosa - Throat Streptococcus pyogenes (PCR) - Final D/C Instructions Discharge Diet: Low fat / Low cholesterol Discharge Activity: Return to Normal Activity Weight Bearing Status: Weight bearing as tolerated Call your doctor if you observe: Fever of 101 or Higher, Shortness of breath, Dizziness, Swelling in the ankles and Chest pain Meaningful Use Info Meaningful Use Diagnoses (Choose all that apply): None applicable Discharge Plan Admission Admit Date/Time: 05/11/23 15:47 Primary Reason for Your Visit: angioedema Attending Provider: Aissatou Lopez Primary Care Provider: Karyna Maldonado NP Consulting Providers: Oleksandr Paul; Heidi Lee; Lucho Avelar Instructions Patient Instructions: ED Angioedema Discharge Orders/Prescriptions Prescriptions: Continued hydroxyzine HCl 25 mg tablet 25 mg PO 4X/DAY PRN PRN (Reason: Breakthrough anxiety) Qty: 40 0RF mirtazapine [Remeron] 30 mg tablet 30 mg PO QHS Discontinued escitalopram oxalate [Lexapro] 10 mg tablet 10 mg PO DAILY 30 Days Qty: 30 0RF Referrals / Follow Up: Karyna Maldonado ASPARAGUS CUTTER, ASPARAGUS CUTTER-C [Primary Care Provider] - Within 2 Weeks Disposition Disposition (needs filled in before D/C Order can be placed): Home, Self Care Charges/Coding Visit Charges Inpatient E&M: 24971 Disch Hosp >30min
--- NOTE | 2023-05-13 10:27 | PCM.DC ---
Discharge Instructions Diet Discharge Diet: Low fat / Low cholesterol Activity Discharge Activity: Return to Normal Activity Weight Bearing Status: Weight bearing as tolerated Dressing / Incision Call your doctor if you observe: Fever of 101 or Higher, Shortness of breath, Dizziness, Swelling in the ankles and Chest pain Follow Up Care Test Results: Test results from this visit will be discussed in further detail at your follow-up appointment, if applicable. Discharge Plan Admission Admit Date/Time: 05/11/23 15:47 Primary Reason for Your Visit: angioedema Attending Provider: Aissatou Lopez Primary Care Provider: Karyna Maldonado NP Consulting Providers: Oleksandr Paul; Heidi Lee; Lucho Avelar Instructions Patient Instructions: ED Angioedema Discharge Orders/Prescriptions Prescriptions: Continued hydroxyzine HCl 25 mg tablet 25 mg PO 4X/DAY PRN PRN (Reason: Breakthrough anxiety) Qty: 40 0RF mirtazapine [Remeron] 30 mg tablet 30 mg PO QHS Discontinued escitalopram oxalate [Lexapro] 10 mg tablet 10 mg PO DAILY 30 Days Qty: 30 0RF Referrals / Follow Up: Karyna Maldonado AUTOMATIC BUFFER, AUTOMATIC BUFFER-C [Primary Care Provider] - Within 2 Weeks Disposition Disposition (needs filled in before D/C Order can be placed): Home, Self Care
== END 2023-05-13 11:10 | disposition home or self-care (01) ==
LOC: ED 14:44 → ICU 16:02
PROVIDERS: Admitting Provider Internal Medicine; Emergency Provider Emergency Medicine; PCP Internal Medicine; Visit Provider Student in an Organized Health Care Education/Training Program
DX: T78.3XXA Angioneurotic edema, initial encounter (principal); J35.2 Hypertrophy of adenoids; F17.210 Nicotine dependence, cigarettes, uncomplicated; F41.9 Anxiety disorder, unspecified; Z79.899 Other long term (current) drug therapy
CPT/HCPCS: 31575; 71045; 80053; 83735; 84100; 84443; 85025; 87651; 92610; 93005; 94762; 96361; 96365; 96375; 96376; 97802; 99221; 99252; 99285; J7030; J7120; A4216; G0378; G0463; J3490

== ENCOUNTER → 2023-05-16 | Outpatient (CLI) | payer MEDICAID, SELFPAY ==
[2023-05-20 14:08] LABS: Alternaria tenuis <0.10 kU/L (Class 0); Ash, White <0.10 kU/L (Class 0); Aspergillus fumigatus <0.10 kU/L (Class 0); Bermuda Grass 0.44 kU/L (Class I); Birch <0.10 kU/L (Class 0); Black Walnut <0.10 kU/L (Class 0); Cat Hair / Dander,Stand <0.10 kU/L (Class 0); Cedar, Mountain 0.14 kU/L (Class 0/I); Cladosporium herbarum <0.10 kU/L (Class 0); Clam 0.21 kU/L (Class 0/I); Cockroach, American 5.19 kU/L (Class IV); Codfish <0.10 kU/L (Class 0); Corn <0.10 kU/L (Class 0); Cottonwood 0.26 kU/L (Class 0/I); D pteronyssinus 4.82 kU/L (Class IV); Dog Epithelia 0.15 kU/L (Class 0/I); Egg, White <0.10 kU/L (Class 0); Egg, Yolk <0.10 kU/L (Class 0); Elm, American White <0.10 kU/L (Class 0); Immunoglobulin E 800 IU/mL (6-495); Maple/Box Elder <0.10 kU/L (Class 0); Milk (Cow) <0.10 kU/L (Class 0); Mouse Urine <0.10 kU/L (Class 0); Mulberry, White <0.10 kU/L (Class 0); Oak, White <0.10 kU/L (Class 0); Peanut 0.18 kU/L (Class 0/I); Pecan <0.10 kU/L (Class 0); Penicillium Notatum <0.10 kU/L (Class 0); Pigweed, Rough <0.10 kU/L (Class 0); Pistachio Nut <0.10 kU/L (Class 0); Russian Thistle 0.37 kU/L (Class I); SCALLOP <0.10 kU/L (Class 0); SESAME SEED <0.10 kU/L (Class 0); Sheep Sorrel <0.10 kU/L (Class 0); Soybean <0.10 kU/L (Class 0); Sycamore, American <0.10 kU/L (Class 0); Timothy Grass <0.10 kU/L (Class 0); Walnut, (Food) <0.10 kU/L (Class 0); Wheat <0.10 kU/L (Class 0)
== END | disposition home or self-care (01) ==
LOC: LAB 11:19
PROVIDERS: PCP Internal Medicine; Referring Provider Otolaryngology; Visit Provider Otolaryngology
DX: T78.40XA Allergy, unspecified, initial encounter (principal)
CPT/HCPCS: 36415; 82785; 86003

== ENCOUNTER → 2023-05-23 | Outpatient (CLI) | payer MEDICAID, SELFPAY ==
--- NOTE | 2023-05-23 10:30 | RAD_ITS ---
STUDY: X-RAY - ESOPHAGUS (BARIUM SWALLOW) WITH FLUOROSCOPY REASON FOR EXAM: Male, 33 years old. DYSPHAGIA TECHNIQUE: 19 view(s) of the esophagus were obtained following swallowing of barium. FLUOROSCOPY TIME (if supplied): (1 second) minutes/seconds COMPARISON: Comparison is made with prior study dated August 14, 2022. FINDINGS: There is no demonstrated esophageal foreign body. There is no demonstrated stricture or mucosal abnormality. Normal gastroesophageal junction, without a demonstrated hiatal hernia. The patient ingested a 12 mm tablet of barium without difficulty. Normal visualized aortic arch and descending thoracic aorta. Normal visualized pulmonary parenchyma. Normal visualized osseous structures of the thorax. RAD/Esophagus Dual Contrast IMPRESSION: Normal plain film x-ray examination (barium swallow) of the esophagus. Electronically Signed: Jose Winston MD at 15:07 EST ,
== END | disposition home or self-care (01) ==
PROVIDERS: PCP Internal Medicine; Referring Provider Otolaryngology; Visit Provider Otolaryngology
DX: R13.19 Other dysphagia (principal)
CPT/HCPCS: 74221

== ENCOUNTER 2024-04-10 20:24 | Emergency (ER) | payer MEDICAID, SELFPAY ==
[2024-04-10 20:24] VITALS: BP 143/83; PULSE 103; RESP 16; TEMP 36.2; O2SAT 100; BMI 29.5
--- NOTE | 2024-04-10 21:01 | EDS_ITS ---
HPI History of Present Illness Chief Complaint: Nausea/Vomiting Informant: patient Narrative Narrative: 34-year-old male states that 2 days ago while intoxicated he vomited and is worried that he aspirated. He notes cough and fever. He notes some indigestion-like discomfort. He notes a slight amount of diarrhea and sore throat. No reported rashes. PFSH PFS Medical History Depression Difficulty swallowing Anxiety Home Medications ?Medication ?Instructions ?Recorded ?Last Taken ?Type hydroxyzine HCl 25 mg tablet 25 mg PO 4X/DAY PRN PRN 03/09/23 Unknown Rx Breakthrough anxiety #40 tabs mirtazapine 30 mg tablet (Remeron) 30 mg PO QHS 05/11/23 Unknown History ondansetron 4 mg disintegrating 4 mg PO Q6H PRN PRN Nausea #15 tabs 04/10/24 Unknown Rx tablet Allergy/AdvReac Type Severity Reaction Status Date / Time escitalopram (From LexaprGoYoDeo) Allergy Severe Angioedema Verified 04/10/24 20:24 shellfish derived Allergy shellfish Verified 04/10/24 20:24 Sulfa (Sulfonamide Allergy Hives Verified 04/10/24 20:24 Antibiotics) Social History Smoking Status: Current some day smoker tobacco type: cigarettes alcohol intake: never substance use type: does not use ROS ROS ED Constitutional Constitutional ED: Reports chills and fever(s); Denies weight loss Eyes Eyes: Denies change in vision or diplopia ENT ENT ED: Denies ear pain, rhinorrhea or sore throat Cardiovascular Cardiovascular: Reports chest pain; Denies orthopnea, palpitations or racing heartbeat Respiratory/Chest Respiratory/Chest: Reports cough; Denies dyspnea or orthopnea Gastrointestinal Gastrointestinal: Reports abdominal pain, diarrhea, nausea and vomiting Genitourinary Genitourinary ED: Denies dysuria, hematuria or urinary frequency Musculoskeletal Musculoskeletal: Reports myalgias; Denies arthralgias Integumentary Denies abscess or rash Neurologic Neurologic: Denies headache(s) or weakness Psychiatric Psychiatric: Denies anxiety, depression, suicidal ideation or suicidal thoughts Endocrine Endocrinology: Denies polydipsia, polyphagia or polyuria Allergic/Immunologic Allergic/Immunologic ED: Denies mouth swelling, tongue swelling or urticaria EXAM Physical Exam Const Vital Signs: 04/10/24 20:24 04/10/24 22:58 04/10/24 23:07 Temperature 97.1 F L 97.1 F L Temperature Source Temporal Pulse Rate 103 H 103 H 103 H Respiratory Rate 16 18 18 Blood Pressure 143/83 H 143/79 H 143/79 H Blood Pressure Mean 103 100 100 Pulse Ox 100 97 97 Oxygen Delivery Method Room Air Room Air Positive well nourished and well developed General Appearance ED: well developed and NAD HEENT Reports normocephalic, head/scalp atraumatic and moist mucous membranes Eyes PERRL and EOMs intact bilaterally Neck no lymphadenopathy, supple and no JVD Resp normal respiratory effort and clear to auscultation bilaterally Cardio regular rate, regular rhythm and no murmurs GI normal to inspection, nondistended, normoactive bowel sounds and non-tender Palpation: soft Back/Spine no CVA tenderness and normal ROM Extremity normal to inspection General Extremety ED: Negative for edema General Extremity: Negative for edema Neuro oriented x3 and CN's II-XII intact bilaterally Sensorium / Orientation: alert Motor Exam: strength 5/5 throughout Psych mental status grossly normal Mood & Affect: Negative for depressed or tearful Skin no rashes or lesions noted and no wounds MDM MDM MDM Narrative Medical decision making narrative: Differential diagnosis includes but not limited to pneumonia viral syndrome pancreatitis biliary disease dehydration nitrite abnormalities Patient's white count 6.8 hemoglobin 11.7 platelet count 182. Sodium 140 potassium slightly low at 3.2. BUN 20 creatinine 1.43. LFTs reveal an ALT of 79 normal lipase at 14. Patient received a GI cocktail and Zofran. My independent interpretation of the chest x-ray is no acute process. COVID inf luenza and RSV swabs are negative. At this point I believe the patient can be discharged home. Has been resting comfortably. I will write for some Zofran at home. Would recommend oral hydration patient is comfortable with this plan will return concerns History & Record Review Discussion w/independent historian: Patient Lab Data Attestation: I reviewed the patient's lab results. Labs: Laboratory Results - last 24 hr 04/10/24 21:15 WBC 6.8 RBC 4.37 L Hgb 11.7 L Hct 37.0 L MCV 84.7 MCH 26.8 L MCHC 31.6 L RDW Std Deviation 40.5 RDW Coeff of Omid 13.2 Plt Count 182 MPV 10.3 Immature Gran % (Auto) 0.600 Neut % (Auto) 72.7 H Lymph % (Auto) 22.5 [place] % (Auto) 3.5 Eos % (Auto) 0.4 Baso % (Auto) 0.3 Absolute Neuts (auto) 4.9 Absolute Lymphs (auto) 1.53 Nucleated RBC % 0 Sodium 140 Potassium 3.2 L Chloride 107 Carbon Dioxide 30.0 Anion Gap 3 L BUN 20 H Creatinine 1.43 H Estim Creat Clear Calc 87.74 Est GFR (MDRD) Af Amer 74 Est GFR (MDRD) Non-Af 61 BUN/Creatinine Ratio 14.0 Glucose 100 Calcium 8.4 L Total Bilirubin 0.70 Direct Bilirubin 0.20 AST 29 ALT 79 H Alkaline Phosphatase 73 Total Protein 6.5 Albumin 3.0 L Globulin 3.5 Lipase 14 Ethyl Alcohol < 3.0 Radiography Diagnostic Testing: Clinical Impression(s) from Imaging Studies Chest X-Ray 04/10/24 21:20 IMPRESSION: Normal x-ray examination of the chest. Electronically Signed: Duong Cole MD at 21:43 EST , Discharge Plan Triage Chief Complaint: Nausea/Vomiting ED Provider: Sebastian Lorea Dx/Rx/DC Orders Clinical Impression: Vomiting, Cough Instructions: ED Viral Syndrome (Adult), ED Vomiting (Adult) Prescriptions: New ondansetron 4 mg tablet,disintegrating 4 mg PO Q6H PRN PRN (Reason: Nausea) Qty: 15 0RF No Action hydroxyzine HCl 25 mg tablet 25 mg PO 4X/DAY PRN PRN (Reason: Breakthrough anxiety) Qty: 40 0RF mirtazapine [Remeron] 30 mg tablet 30 mg PO QHS Primary Care Provider: Karyna Maldonado NP Referrals: Karyna Maldonado NP, PHARMACY SERVICES REPRESENTATIVE-C [Primary Care Provider] - 3-5 Days if not improving Print Language: Com[place]an Disposition Disposition: Home, Self Care Discharge Date/Time: 04/10/24 23:20
[2024-04-10] MEDS: Lidocaine 2% Viscous15 ML UDC 15 ML PO (21:13)
[2024-04-10] MEDS: Ondansetron 4 MG/2 ML Vial IV (21:13)
[2024-04-10] MEDS: Mag Hydrox/Al Hydrox/Simeth 30 ML UDC PO (21:13)
--- NOTE | 2024-04-10 21:20 | RAD_ITS ---
STUDY: X-RAY CHEST REASON FOR EXAM: Male, 34 years old. cough TECHNIQUE: PA and lateral COMPARISON: May 11, 2023 FINDINGS: The lungs are clear and expanded. There is no demonstrated pleural abnormality. Normal size heart. Normal mediastinum and jacquelyn. Normal visualized pulmonary arteries. Normal visualized aortic arch and descending thoracic aorta. Normal visualized thoracic spine. Normal visualized ribs, clavicles, and shoulders. There is no demonstrated abnormality of the visualized soft tissue structures of the upper abdomen. No significant change since prior study RAD/Chest PA and Lateral IMPRESSION: Normal x-ray examination of the chest. Electronically Signed: Duong Cole MD at 21:43 EST ,
[2024-04-10 21:31] LABS: Absolute Lymphocyte Count 1.53 X10^3/uL (0.83-4.51); Absolute Neutrophil Count 4.9 X10^3/uL (2.0-7.7); Basophil# 0.02 X10^3/uL; Basophil% 0.3 % (0-1); Eosinophil# 0.03 X10^3/uL; Eosinophils% 0.4 % (0-5); Hemoglobin 11.7 g/dL (13.0-16.5); Lymphocyte # 1.53 X10^3/ul (0.83-4.51); Lymphocyte % 22.5 % (19-41); Mean Corp Hgb Conc 31.6 g/dL (32-36); Mean Corpuscular Hgb 26.8 pg (27.0-32.0); Mean Corpuscular Volume 84.7 fL (80-94); Mean Platelet Vol. 10.3 fl (6.2-12.0); Monocyte# 0.24 X10^3/uL; Monocyte% 3.5 % (0-10); NRBC Flagged by Analyzer 0 % (0-5); Neutrophil # 4.93 X10^3/uL (2.7-7.7); Neutrophil % 72.7 % (47-70); Platelet Count 182 K/mm3 (150-450); RBC Distribution Width CV 13.2 % (11.6-14.6); RBC Distribution Width SD 40.5 fl (35.1-43.9); Red Blood Count 4.37 M/mm3 (4.6-6.2); White Blood Count 6.8 K/mm3 (4.4-11.0)
[2024-04-10 21:44] LABS: Alcohol, Blood (Medical)-Serum < 3.0 mg/dL
[2024-04-10 21:49] LABS: AST(SGOT) 29 U/L (15-37); Alanine Aminotransfer ALT/SGPT 79 U/L (16-61); Alkaline Phosphatase 73 U/L (45-117); Anion Gap 3 (5-15); BUN 20 mg/dL (7-18); Calcium,Total 8.4 mg/dL (8.5-10.1); Chloride 107 mmol/L (98-107); Creatinine, Serum 1.43 mg/dL (0.70-1.30); EST Glomerular Filtration Rate 61 mL/min (>60); Est Glom Filt Rate - Afr Amer 74 mL/min (>60); Estimated Creatinine Clearance 87.74 ml/min; Globulin 3.5 g/dL (2.2-4.2); Glucose 100 mg/dL (74-106); Lipase 14 U/L (13-75); Potassium 3.2 mmol/L (3.5-5.1); Protein, Total 6.5 g/dL (6.4-8.2); Sodium Level 140 mmol/L (136-145)
[2024-04-10 22:58] VITALS: BP 143/79; PULSE 103; RESP 18; O2SAT 97
[2024-04-10 23:07] VITALS: BP 143/79; PULSE 103; RESP 18; TEMP 36.2; O2SAT 97
== END 2024-04-10 23:20 | disposition home or self-care (01) ==
PROVIDERS: Emergency Provider Emergency Medicine; PCP Internal Medicine; Visit Provider Emergency Medicine
DX: R11.2 Nausea with vomiting, unspecified (principal); J02.9 Acute pharyngitis, unspecified; R19.7 Diarrhea, unspecified; R05.9 Cough, unspecified; R10.9 Unspecified abdominal pain; F32.A Depression, unspecified; F41.9 Anxiety disorder, unspecified; F17.210 Nicotine dependence, cigarettes, uncomplicated; Z88.2 Allergy status to sulfonamides; Z79.899 Other long term (current) drug therapy
CPT/HCPCS: 71046; 80048; 80076; 82077; 83690; 85025; 87631; 96374; 99283; A4216; J2405

== ENCOUNTER 2024-06-25 15:54 | Inpatient (IN) | payer MEDICAID, SELFPAY ==
[2024-06-25 15:55] VITALS: BP 155/101; PULSE 96; RESP 14; TEMP 36.1; O2SAT 96; BMI 32.8
--- NOTE | 2024-06-25 17:10 | EX.ED.DYSGE1 ---
HPI History of Present Illness Chief Complaint: Substance Abuse Narrative Narrative: Patient is a 34-year-old male with past medical history of anxiety, depression who presents to the emergency department for detox from benzos and alcohol he states that he took Ativan and took 3 shots earlier today. Patient states that he wants to get clean. Patient denies any other drug use outside of marijuana and the benzos. [facility] Medical History (Updated 06/25/24 @ 19:[address] Javier Loyola DO) Substance abuse Alcohol abuse Kidney stones GI bleed Smoker Depression Difficulty swallowing Anxiety Home Medications ?Medication ?Instructions ?Recorded ?Last Taken ?Type albuterol sulfate 90 mcg/actuation 2 puff inhalation Q4H PRN wheezing 06/25/24 Unknown History aerosol inhaler cyclobenzaprine 10 mg tablet 5 - 10 mg PO QHS PRN muscle spasm 06/25/24 Unknown History escitalopram oxalate 10 mg tablet 10 mg PO DAILY 06/25/24 06/25/24 History fluticasone propionate 220 1 puff inhalation Q12H 06/25/24 Unknown History mcg/actuation HFA aerosol inhaler fluticasone propionate 50 2 spray intranasal DAILY 06/25/24 Unknown History mcg/actuation nasal spray,suspension hydroxyzine HCl 25 mg tablet 25 mg PO 4X/DAY PRN Breakthrough 06/25/24 Unknown History anxiety mirtazapine 15 mg tablet 15 mg PO QHS 06/25/24 Unknown History omeprazole 20 mg capsule,delayed 20 mg PO DAILY 06/25/24 Unknown History release venlafaxine 37.5 mg 37.5 mg PO DAILY 06/25/24 Unknown History capsule,extended release 24 hr Allergy/AdvReac Type Severity Reaction Status Date / Time escitalopram (From Lexapro) Allergy Severe Angioedema Verified 06/25/24 15:55 shellfish derived Allergy shellfish Verified 06/25/24 15:55 Sulfa (Sulfonamide Allergy Hives Verified 06/25/24 15:55 Antibiotics) Social History Smoking Status: Current some day smoker tobacco type: cigarettes alcohol intake: never substance use type: does not use ROS ROS ED ROS Narrative Constitutional: Denies fevers, chills, headaches, lightness, dizziness Eyes: Denies change in vision double vision blurry vision Cardiovascular: Denies chest pain or palpitations Respiratory: Denies coughing wheezing shortness of breath Abdomen: Denies abdominal pain nausea vomit diarrhea : Denies urinary symptoms Neurological: Denies numbness, weakness, tingling Musculoskeletal: Denies back pain Skin: Denies rashes or lesions EXAM Physical Exam Narrative Exam Narrative: General: Patient lying in bed rest comfortably did not appear to be in acute distress Head: Atraumatic, normocephalic Eyes: PERRL bilaterally, EOMI bilaterally, no conjunctival injection noted Neck: Soft, supple, trachea midline Cardiovascular: Regular rate and rhythm no murmurs gallops rubs noted Respiratory: Clear to auscultation bilaterally no rales rhonchi or wheezes noted Abdomen: No tenderness palpation Extremities: +5/5 strength noted in the bilateral upper and lower extremities Neurological: Patient following commands knew that he was at [facility] year is 2024 Skin: Warm, dry, intact no rashes or lesions noted Const Vital Signs: 06/25/24 15:55 06/25/24 17:26 06/25/24 17:26 Temperature 97 F L Temperature Source Temporal Pulse Rate 96 75 71 Respiratory Rate 14 17 18 Blood Pressure 155/101 H 127/69 H 127/69 H Blood Pressure Mean 119 88 88 Pulse Ox 96 97 95 Oxygen Delivery Method Room Air Room Air Room Air 06/25/24 18:00 06/25/24 19:00 Temperature Temperature Source Pulse Rate 70 68 Respiratory Rate 19 H 17 Blood Pressure 108/68 116/68 Blood Pressure Mean 81 84 Pulse Ox 94 93 Oxygen Delivery Method Room Air MDM MDM MDM Narrative Medical decision making narrative: Patient is a 34-year-old male who presented to the emergency department with a chief complaint of wanting detox from benzodiazepines and alcohol. Patient will be medically cleared and then contact the hospitalist for admission. Patient CBC was reviewed and showed no evidence leukocytosis white blood count normal at 6.3, hemoglobin 11.8, plate count was noted be normal at 247. Patient sodium normal 140, [place] 4.3, creatinine was noted be 1.36 which when compared to previous blood draw on 04/10/2024 this was better. Patient's drug screen is pending, alcohol level less than 10. Discussed case with hospitalist for admission Dr. Barnhart who accept patient for admission. Patient notified all question concerns answered. Lab Data Labs: Laboratory Results - last 24 hr 06/25/24 17:10 WBC 6.3 RBC 4.24 L Hgb 11.8 L Hct 35.9 L MCV 84.7 MCH 27.8 MCHC 32.9 RDW Std Deviation 41.9 RDW Coeff of Omid 13.5 Plt Count 247 MPV 10.5 Immature Gran % (Auto) 0.300 Neut % (Auto) 54.2 Lymph % (Auto) 31.7 [place] % (Auto) 8.1 Eos % (Auto) 5.1 H Baso % (Auto) 0.6 Absolute Neuts (auto) 3.4 Absolute Lymphs (auto) 1.99 Nucleated RBC % 0 Sodium 140 Potassium 4.3 Chloride 104 Carbon Dioxide 25.9 Anion Gap 10 BUN 12 Creatinine 1.36 H Estim Creat Clear Calc 96.90 Est GFR (MDRD) Non-Af 71 BUN/Creatinine Ratio 9.0 L Glucose 93 Calcium 8.8 Ethyl Alcohol < 10.1 Discharge Plan Triage Chief Complaint: Substance Abuse ED Provider: Javier Loyola Dx/Rx/DC Orders Clinical Impression: Substance abuse Primary Care Provider: Karyna Maldonado PROJECT CONSTRUCTION ASSISTANT MANAGER Disposition Disposition: Acute Care Hospital [facility]
[2024-06-25 17:26] VITALS: BP 127/69; PULSE 71; PULSE 75; RESP 17; RESP 18; O2SAT 95; O2SAT 97
[2024-06-25 17:26] LABS: Absolute Lymphocyte Count 1.99 X10^3/uL (0.83-4.51); Absolute Neutrophil Count 3.4 X10^3/uL (2.0-7.7); Basophil# 0.04 X10^3/uL; Basophil% 0.6 % (0-1); Eosinophil# 0.32 X10^3/uL; Eosinophils% 5.1 % (0-5); Hematocrit 35.9 % (40-54); Hemoglobin 11.8 g/dL (13.0-16.5); Lymphocyte # 1.99 X10^3/ul (0.83-4.51); Lymphocyte % 31.7 % (19-41); Mean Corp Hgb Conc 32.9 g/dL (32-36); Mean Corpuscular Hgb 27.8 pg (27.0-32.0); Mean Corpuscular Volume 84.7 fL (80-94); Mean Platelet Vol. 10.5 fl (6.2-12.0); Monocyte# 0.51 X10^3/uL; Monocyte% 8.1 % (0-10); NRBC Flagged by Analyzer 0 % (0-5); Neutrophil # 3.39 X10^3/uL (2.7-7.7); Neutrophil % 54.2 % (47-70); Platelet Count 247 K/mm3 (150-450); RBC Distribution Width CV 13.5 % (11.6-14.6); RBC Distribution Width SD 41.9 fl (35.1-43.9); Red Blood Count 4.24 M/mm3 (4.6-6.2); White Blood Count 6.3 K/mm3 (4.4-11.0)
[2024-06-25 18:00] VITALS: BP 108/68; PULSE 70; RESP 19; O2SAT 94
[2024-06-25 18:00] LABS: Alcohol, Blood (Medical)-Serum < 10.1 mg/dL (<=10.0)
[2024-06-25 18:01] LABS: Anion Gap 10 (5-15); BUN 12 mg/dL (4-19); Calcium,Total 8.8 mg/dL (7.6-11.0); Carbon Dioxide 25.9 mmol/L (21.0-32.0); Chloride 104 mmol/L (98-108); Creatinine, Serum 1.36 mg/dL (0.70-1.20); EST Glomerular Filtration Rate 71 (>60); Glucose 93 mg/dL (70-99); Potassium 4.3 mmol/L (3.3-5.1); Sodium Level 140 mmol/L (133-145)
[2024-06-25 19:00] VITALS: BP 116/68; PULSE 68; RESP 17; O2SAT 93
--- NOTE | 2024-06-25 19:27 | PCM.HP.STD ---
HPI - General General Date of Admission: 06/25/24 Date of Service: 06/25/24 Chief Complaint: EtOH/BZD detox request. HPI Narrative The patient is a 34 y/o M w/ PMHx: Asthma with allergic rhinitis, Chronic anemia, GERD w/ Hx GI bleed, Anxiety and Depression, Tobacco use, Hx Nephrolithiasis, CKD stage II per GFR trending, EtOH abuse and BZD abuse who presents to the [facility] ED on 06/25/24 with history of request for withdrawal treatment with last alcohol intake 3 shots just prior to ED arrival and 2 g of benzodiazepines on day of presentation currently not in any withdrawal symptoms and more somnolent although at the alcohol level less than 10.1 upon current presentation. He does report that he is interested in clean and sober status and is requesting treatment. Workup in the ED included T97, heart rate 96, BP 155/101, respiratory rate 14, 96% room air with most recent repeat vitals T97.7, heart rate 70, BP 127/80, respiratory rate 15, 98% on room air, CBC with WBC 6.3, hemoglobin 0.8, MCV 84.7, platelet 247 without marked shift, BMP with BUN/: 12/1.36, GFR 71, UDS with presumptive positive oxycodone, benzodiazepine, cannabis, ethyl alcohol less than 10.1, hepatic profile requested and pending upon evaluation. [facility] Medical History Allergic rhinitis Benzodiazepine abuse, continuous Chronic anemia Asthma CKD (chronic kidney disease), stage II GERD (gastroesophageal reflux disease) History of GI bleed Anxiety and depression Tobacco use Alcohol abuse Kidney stones Home Medications ?Medication ?Instructions ?Recorded ?Last Taken ?Type albuterol sulfate 90 mcg/actuation 2 puff inhalation Q4H PRN wheezing 06/25/24 Unknown History aerosol inhaler cyclobenzaprine 10 mg tablet 5 - 10 mg PO QHS PRN muscle spasm 06/25/24 Unknown History escitalopram oxalate 10 mg tablet 10 mg PO DAILY 06/25/24 06/25/24 History fluticasone propionate 220 1 puff inhalation Q12H 06/25/24 Unknown History mcg/actuation HFA aerosol inhaler fluticasone propionate 50 2 spray intranasal DAILY 06/25/24 Unknown History mcg/actuation nasal spray,suspension hydroxyzine HCl 25 mg tablet 25 mg PO 4X/DAY PRN Breakthrough 06/25/24 Unknown History anxiety mirtazapine 15 mg tablet 15 mg PO QHS 06/25/24 Unknown History omeprazole 20 mg capsule,delayed 20 mg PO DAILY 06/25/24 Unknown History release venlafaxine 37.5 mg 37.5 mg PO DAILY 06/25/24 Unknown History capsule,extended release 24 hr Allergy/AdvReac Type Severity Reaction Status Date / Time escitalopram (From Lexapro) Allergy Severe Angioedema Verified 06/25/24 15:55 shellfish derived Allergy shellfish Verified 06/25/24 15:55 Sulfa (Sulfonamide Allergy Hives Verified 06/25/24 15:55 Antibiotics) Family History Mother COPD (chronic obstructive pulmonary disease) Alcohol abuse Polysubstance abuse Father COPD (chronic obstructive pulmonary disease) Alcohol abuse Polysubstance abuse Surgical History History of mandibular surgery Social History household members: other details: Lives with girlfriend (she has no EtOH or substance abuse history per pt) Smoking Status: Current some day smoker tobacco type: cigarettes alcohol intake: current alcohol intake frequency: 3 or more drinks per day Alcohol type: hard liquor substance use type: other details: BZD, ~ 2 gm daily at least. ROS ROS Narrative Admission Review of Systems: CONSTITUTIONAL: No weight loss, fever, chills, + weakness or fatigue. HEENT: Eyes: No visual loss, blurred vision, double vision or yellow sclerae. Ears, Nose, Throat: No hearing loss, sneezing, congestion, runny nose or sore throat. SKIN: No rash or itching, lesions, wounds. CARDIOVASCULAR: No chest pain, chest pressure or chest discomfort, palpitations, edema, orthopnea, syncopal events. RESPIRATORY: No shortness of breath, cough or sputum, wheezing, hemoptysis. GASTROINTESTINAL: + Currently lack of appetite but recent significant sedated regimen intake suspected. No nausea, vomiting or diarrhea, abdominal pain, melena, BRBPR. GENITOURINARY: No dysuria, frequency, urgency or retention. NEUROLOGICAL: + Lethargic. No headache, dizziness, syncope, paralysis, ataxia, numbness or tingling in the extremities, focal weakness, change in bowel or bladder control, seizure. MUSCULOSKELETAL: + muscle, back pain, joint pain or stiffness. HEMATOLOGIC: + Chronic anemia. No marked easy history of bleeding or bruising. LYMPHATICS: No enlarged nodes. No history of splenectomy. PSYCHIATRIC: + History of anxiety and depression. ENDOCRINOLOGIC: No reports of sweating, cold or heat intolerance. No polyuria or polydipsia. ALLERGIES: + History of asthma with allergic rhinitis, hives and angioedema. Vital Signs Vital Signs Vital Signs: 06/25/24 15:55 06/25/24 17:26 06/25/24 17:26 Temperature 97 F L Temperature Source Temporal Pulse Rate 96 75 71 Respiratory Rate 14 17 18 Blood Pressure 155/101 H 127/69 H 127/69 H Blood Pressure Mean 119 88 88 Pulse Ox 96 97 95 Oxygen Delivery Method Room Air Room Air Room Air 06/25/24 18:00 06/25/24 19:00 Temperature Temperature Source Pulse Rate 70 68 Respiratory Rate 19 H 17 Blood Pressure 108/68 116/68 Blood Pressure Mean 81 84 Pulse Ox 94 93 Oxygen Delivery Method Room Air Weight Weight: 235 lb 3.732 oz Body Mass Index (BMI) 32.8 Physical Exam Narrative Physical Examination: General: Awakens to stimulation, alert for second of time then falls back asleep, oriented to self, place, recent events but is very lethargic, follows some commands, seated upright in bed in no apparent distress. Skin: Normal color, normal turgor, no icterus, no cyanosis. HEENT: AT/NC, EOMI, PERRLA, moderately dry MM, no carotid bruits or JVD noted. Lungs: Mildly diminished, greater bases, appropriate effort, no rales, ronchi or wheezing. Heart: Mildly tachycardic with regular rhythm; no gallop, rub audible. Abdomen: Soft, NTTP, ND, distant normal BS, no appreciated HSM. Extremities: No cyanosis, clubbing, or edema. Neurological: Awakens to stimulation, alert for second of time then falls back asleep, oriented to self, place, recent events but is very lethargic, follows some commands, seated upright in bed in no apparent distress, cognitive function decreased given likely recent sedated regimen as noted, pupils equally reactive to light and accommodation, cranial nerves appear grossly normal but difficult as somnolent, moving all 4 extremities, no focal deficits, strength currently moderately to severely globally creased but recent sedated regimen. Psychiatric: Affect appears flat, somnolent, no acute evidence of depressive or anxiety feelings but does have underlying history. Results Lab / Micro Data 06/25/24 17:10 06/25/24 17:10 Labs: Laboratory Results - last 24 hr 06/25/24 17:10: WBC 6.3, RBC 4.24 L, Hgb 11.8 L, Hct 35.9 L, MCV 84.7, MCH 27.8, MCHC 32.9, RDW Std Deviation 41.9, RDW Coeff of Omid 13.5, Plt Count 247, MPV 10.5, Immature Gran % (Auto) 0.300, Neut % (Auto) 54.2, Lymph % (Auto) 31.7, Heard % (Auto) 8.1, Eos % (Auto) 5.1 H, Baso % (Auto) 0.6, Absolute Neuts (auto) 3.4, Absolute Lymphs (auto) 1.99, Nucleated RBC % 0, Sodium 140, Potassium 4.3, Chloride 104, Carbon Dioxide 25.9, Anion Gap 10, BUN 12, Creatinine 1.36 H, Estim Creat Clear Calc 96.90, Est GFR (MDRD) Non-Af 71, BUN/Creatinine Ratio 9.0 L, Glucose 93, Calcium 8.8, Ethyl Alcohol < 10.1 Assessment & Plan Assessment/Plan (1) Admitted to alcohol detoxification center: PLAN: Plan The patient is a 34 y/o M w/ PMHx: Asthma with allergic rhinitis, Chronic anemia, GERD w/ Hx GI bleed, Anxiety and Depression, Tobacco use, Hx Nephrolithiasis, CKD stage II per GFR trending, EtOH abuse and BZD abuse who presents to the [facility] ED on 06/25/24 with history of request for withdrawal treatment with last alcohol intake 3 shots just prior to ED arrival and 2 g of benzodiazepines on day of presentation currently not in any withdrawal symptoms and more somnolent although at the alcohol level less than 10.1 upon current presentation. #1. Chronic alcohol and benzodiazepine abuse with requested detoxification: Will admit to [facility], routine labs obtained in the ED upon presentation. Given interest in sobriety/clean status, will initiate and continue on protocol with taper course of Phenobarbital, as needed gabapentin, Catapres, Bentyl, Vistaril, IV fluids, IV antiemetics, Tylenol as needed for pain. Will consult Case management for assistance for transition to next level of rehabilitation care. Mag, phos pending. Once patient is less somnolent likely from recent benzo intake will need to we discussed exactly what he is abusing to be sure given UDS and EtOH level upon presentation #2. Elevated BP with hypertensive diagnosis: Upon ED initial arrival and noted on previous evaluation patient with BP above goal, we will continue to monitor and add regimen/diagnosis hypertension if appropriate, in the interim as needed IV hydralazine. #3. Chronic asthma with allergic rhinitis: Will continue home inhaler regimen, PRN albuterol, HOB, IS parameters, continue home fluticasone regimen, strongly encouraged tobacco cessation. #4. Anxiety and depression: Likely related with his abuse history, would benefit from ongoing counseling evaluation outpatient, clarifying medications as currently listed on venlafaxine, mirtazapine, hydroxyzine with previous escitalopram usage which eventually per record caused angioedema. #5. Chronic Kidney Disease Stage II per GFR trending: Admission BUN/Cr 12/1.36, GFR 71, baseline renal function 0.9-1.4. Given patient age would strongly benefit from early follow-up and continue monitoring of his renal function. #6. Chronic normocytic anemia: Admission hemoglobin 11.8, MCV 84.7, baseline hemoglobin noted previous similar -12, encourage continued outpatient follow-up and evaluation. #7. Tobacco Abuse: Encouraged cessation, inpatient consultation per RT, NR if desired. #8. GERD with history of previous GI bleed: Unclear exact history of GI bleed component but possibly related with alcohol abuse, will continue home PPI regimen. #9. DVT prophylaxis: Low risk for type of presentation. Encourage ambulation once appropriate. Charges/Coding Visit Charges Inpatient E&M: 42837 Init Hosp L3
[2024-06-25 19:38] VITALS: BP 118/79; PULSE 66; RESP 20; TEMP 36.4; O2SAT 98
[2024-06-25 20:21] LABS: Amphetamine Urine NEGATIVE (<1000 ng/mL); Barbiturate Urine NEGATIVE (< 200 ng/mL); Benzodiazepine Urine PRESUMPTIVE POSITIVE (< 200 ng/mL); Buprenorphine Urine NEGATIVE (< 200 ng/mL); Cocaine Urine NEGATIVE (< 300 ng/mL); Fentanyl, Urine NEGATIVE; Methadone Urine NEGATIVE (< 300 ng/mL); Opiates Urine NEGATIVE (< 300 ng/mL); Oxycodone, Urine PRESUMTIVE POSITIVE (< 100 ng/mL); PCP Urine NEGATIVE (< 25 ng/mL); THC Urine PREUMTIVE POSITIVE (< 50 ng/mL)
[2024-06-25 20:39] VITALS: BMI 30.6
[2024-06-25 20:46] VITALS: BP 127/80; PULSE 70; RESP 15; TEMP 36.5; O2SAT 98
[2024-06-25 20:56] LABS: Magnesium 2.1 mg/dL (1.5-2.2); Phosphorus 4.1 mg/dL (2.7-4.5)
[2024-06-25] MEDS: Phenobarbital 32.4 MG Tablet 64.8 MG PO (21:38)
[2024-06-25] MEDS: Mirtazapine 15 MG Tablet PO (21:38)
[2024-06-25 22:33] LABS: AST(SGOT) 25 U/L (<=37); Alanine Aminotransfer ALT/SGPT 31 U/L (<=46); Albumin, Serum 3.7 g/dL (3.5-5.0); Alkaline Phosphatase 66 U/L (40-129); Bilirubin, Direct 0.12 mg/dL (0.00-0.30); Globulin 2.7 g/dL (2.2-4.2); Protein, Total 6.4 g/dL (5.9-8.4); Total Bilirubin 0.29 mg/dL (0.00-1.30)
[2024-06-25] MEDS: Lactated Ringers 1,000 ML 125 ML IV (23:00)
[2024-06-26] VITALS (7 sets, daily range): BP systolic 111–135; BP diastolic 54–88; PULSE 69–97; RESP 14–18; TEMP 36.3–37.3; O2SAT 97–100
[2024-06-26] MEDS: Dicyclomine 10 MG Capsule 20 MG PO (01:07)
[2024-06-26] MEDS: Ondansetron 8 MG Tablet PO (01:07)
[2024-06-26] MEDS: Phenobarbital 32.4 MG Tablet 64.8 MG PO ×6 (01:26→20:37)
[2024-06-26] MEDS: 0.9% Saline Lock 10 ML Syringe IV (07:25)
--- NOTE | 2024-06-26 07:33 | PCM.PN.HOSP ---
Objective Data Objective Data Vital Signs: Vital Signs Temp Pulse Resp BP Pulse Ox O2 Del Method 97.8 F 69 16 122/54 H 98 Room Air 06/26/24 04:48 06/26/24 04:48 06/26/24 04:48 06/26/24 04:48 06/26/24 04:48 06/26/24 04:48 Oxygen Delivery Method Room Air Weight: 219 lb 11.36 oz Body Mass Index (BMI) 30.6 Intake & Output: Intake and Output for Last 24 Hours 06/24/24 06/25/24 06/26/24 23:59 23:59 23:59 Intake Total 1000 / 1000 Balance 1000 / 1000 Lab / Micro Data 06/25/24 17:10 06/25/24 17:10 Labs: Laboratory Results - last 24 hr 06/25/24 17:10: WBC 6.3, RBC 4.24 L, Hgb 11.8 L, Hct 35.9 L, MCV 84.7, MCH 27.8, MCHC 32.9, RDW Std Deviation 41.9, RDW Coeff of Omid 13.5, Plt Count 247, MPV 10.5, Immature Gran % (Auto) 0.300, Neut % (Auto) 54.2, Lymph % (Auto) 31.7, Hemphill % (Auto) 8.1, Eos % (Auto) 5.1 H, Baso % (Auto) 0.6, Absolute Neuts (auto) 3.4, Absolute Lymphs (auto) 1.99, Nucleated RBC % 0, Sodium 140, Potassium 4.3, Chloride 104, Carbon Dioxide 25.9, Anion Gap 10, BUN 12, Creatinine 1.36 H, Estim Creat Clear Calc 96.90, Est GFR (MDRD) Non-Af 71, BUN/Creatinine Ratio 9.0 L, Glucose 93, Calcium 8.8, Phosphorus 4.1, Magnesium 2.1, Total Bilirubin 0.29, Direct Bilirubin 0.12, AST 25, ALT 31, Alkaline Phosphatase 66, Total Protein 6.4, Albumin 3.7, Globulin 2.7, Ethyl Alcohol < 10.1 06/25/24 19:35: Urine Opiates Screen NEGATIVE, U Buprenorphine Qual NEGATIVE, Ur Oxycodone Screen PRESUMTIVE POSITIVE, Urine Methadone Screen NEGATIVE, Urine Fentanyl Screen NEGATIVE, Ur Barbiturates Screen NEGATIVE, Ur Phencyclidine Scrn NEGATIVE, Ur Amphetamines Screen NEGATIVE, U Benzodiazepines Scrn PRESUMPTIVE POSITIVE, Urine Cocaine Screen NEGATIVE, U Cannabinoids Screen PREUMTIVE POSITIVE Physical Exam Narrative Seen and examined Patient is admitted for benzodiazepine and alcohol withdrawal but predominantly benzodiazepine. He takes Xanax unclear of exact dosing but he says 3 mg 2-3 times daily. He drinks vodka 3-4 shots every month. He is having withdrawal symptoms of nightmare, scary dreams but denies seizure hallucination or shaking. Patient is restless. He denies history of hep B, hep C and HIV. Denies history of opioid use or needle use Physical exam General: Awake, lethargic, restless. Oriented to time place and person HEENT: Atraumatic, PERRLA, EOMI, Normocephalic Oral: No Gingival or Mucosal Lesions/ Ulcerations Neck: Supple, No JVD, Negative Carotid Bruits Chest wall/Lungs: Air entry diminished in bilateral lung bases. No crepitation/rhonchi Cardiovascular: Regular rate, Regular Rhythm, Normal S1, Normal S2, No M/G/R Abdomen: Bowel Sounds Present, Soft, Non Tender, Non-Distended : No dysuria. No renal angle tenderness. No suprapubic tenderness. Extremities: No edema, Capillary Refill Less than 3 Seconds Skin: No rashes, No breakdown Musculoskeletal: No Tenderness to Palpation of Joints or Extremities Neurological: Cranial nerves II-XII grossly intact, DTR 2+/4. No acute focal neurological deficit. Psych/Mental Status: Restless. Disorganized behavior Assessment & Plan Assessment/Plan (1) Admitted to alcohol detoxification center: PLAN: Plan The patient is a 34 y/o M was admitted with benzodiazepine and alcohol withdrawal. To me mentioned Xanax 3 mg 2-3 times daily but as per admitting hospitalist, takes 2 g of Xanax on day of presentation. 1. Acute benzodiazepine withdrawal with history of chronic Xanax use dependence and tolerance: Patient is being admitted on MedSurg floor. Having nightmare/weird dreams and restless. No seizure. atient on phenobarbital based order set along with other adjunctive medications gabapentin, Bentyl, Vistaril, clonidine, Klonopin as needed for alcohol withdrawal symptom control. Patient is on thiamine and folate acid. client engagement manager 180 consulted. CIWA B score is 3. His blood pressure is elevated probably due to withdrawal symptoms but last 129/84 2. Chronic alcohol use and dependence: Does not seem patient is alcohol withdrawal symptoms. He drinks once a month about 3-4 shots of vodka. #3. Chronic asthma with allergic rhinitis: continue home fluticasone regimen, with as needed bronchodilator #4. Anxiety and depression: Continue venlafaxine, mirtazapine, hydroxyzine with previous escitalopram usage which eventually per record caused angioedema. Trazodone discontinued as patient on mirtazapine. Trazodone also decreases seizure threshold. #5. Chronic Kidney Disease Stage II : Admission BUN/Cr 12/1.36, GFR 71, baseline renal function 0.9-1.4. #6. Chronic normocytic anemia: Admission hemoglobin 11.8, MCV 84.7, baseline hemoglobin noted previous similar 11-12 milligram p.o. #7. Tobacco Abuse: Encouraged cessation, inpatient consultation per RT, NR if desired. #8. GERD with history of previous GI bleed: continue home PPI regimen. #9. DVT prophylaxis: Low risk for type of presentation. Encourage ambulation once appropriate. Charges/Coding Visit Charges Inpatient E&M: 21922 Subs Hosp L2
[2024-06-26] MEDS: Pantoprazole Sodium 20 MG Tablet PO (07:58)
[2024-06-26] MEDS: Folic Acid 1 MG Tablet PO (07:58)
[2024-06-26] MEDS: Escitalopram Oxalate 10 MG Tablet PO (07:59)
[2024-06-26] MEDS: Venlafaxine XR 37.5 MG Capsule PO (07:59)
[2024-06-26] MEDS: Multivitamins,Ther W-Minerals Tablet 1 TABLET PO (07:59)
[2024-06-26] MEDS: Thiamine Hydrochloride 100 MG Tablet PO (08:00)
[2024-06-26] MEDS: Mirtazapine 15 MG Tablet PO (20:37)
[2024-06-27] MEDS: Phenobarbital 32.4 MG Tablet 64.8 MG PO ×3 (02:15→09:23)
[2024-06-27 02:24] VITALS: BP 105/53; PULSE 77; RESP 16; TEMP 36.4; O2SAT 100
[2024-06-27 07:12] VITALS: O2SAT 98
[2024-06-27 07:46] LABS: Anion Gap 11 (5-15); BUN 12 mg/dL (4-19); BUN/Creat Ratio 10.3 RATIO (10-20); Calcium,Total 8.4 mg/dL (7.6-11.0); Carbon Dioxide 23.3 mmol/L (21.0-32.0); Chloride 105 mmol/L (98-108); Creatinine, Serum 1.16 mg/dL (0.70-1.20); EST Glomerular Filtration Rate 86 (>60); Estimated Creatinine Clearance 109.97 ml/min (50-250); Glucose 99 mg/dL (70-99); Sodium Level 139 mmol/L (133-145)
[2024-06-27 09:21] VITALS: BP 129/68; PULSE 94; RESP 18; TEMP 36.5; O2SAT 99
[2024-06-27] MEDS: Folic Acid 1 MG Tablet PO (09:23)
[2024-06-27] MEDS: Multivitamins,Ther W-Minerals Tablet 1 TABLET PO (09:23)
[2024-06-27] MEDS: Thiamine Hydrochloride 100 MG Tablet PO (09:23)
[2024-06-27] MEDS: Escitalopram Oxalate 10 MG Tablet PO (09:23)
[2024-06-27] MEDS: Pantoprazole Sodium 20 MG Tablet PO (09:24)
--- NOTE | 2024-06-27 11:07 | NURSING ---
pt asking about using the phone. pt states he's got court. informed patient it is saturday and therefore there's noone to call about court also reminded patient about contract of not having contact with outsiders. pt again asking about discharge stating he wants to be discharged today. informed patient awaiting on Dr. Murillo to see him and for discharge orders. Reinforced plan of care that when dr. murillo orders discharge and this nurse gives DC instructions will then enable him to have personal belongings from the tote, as he's asked MANAGER MOUNTAIN about getting his belongings. Pt refused all further needs at this time.
--- NOTE | 2024-06-27 15:26 | PCM.DC.SUM ---
Providers Date of Admission: 06/25/24 Date of Discharge: 06/27/24 Primary Care Physician: KEVIN Martel Reason For Visit: BZD, ETOH WITHDRAWL Diagnosis Discharge Diagnosis (1) Admitted to alcohol detoxification center: Status: Acute Plan The patient is a 34 y/o M was admitted with benzodiazepine and alcohol withdrawal. To me mentioned Xanax 3 mg 2-3 times daily but as per admitting hospitalist, takes 2 g of Xanax on day of presentation. 1. Acute benzodiazepine withdrawal with history of chronic Xanax use dependence and tolerance: Patient is being admitted on MedSur floor. Having nightmare/weird dreams and restless. No seizure. atient on phenobarbital based order set along with other adjunctive medications gabapentin, Bentyl, Vistaril, clonidine, Klonopin as needed for alcohol withdrawal symptom control. Patient is on thiamine and folate acid. food and beverage service manager 180 consulted. CIWA B score is 3. His blood pressure is elevated probably due to withdrawal symptoms but last 129/84 06/27: Patient feels much better. He had a good sleep without interruption. Denies nightmares/panic attack. Patient wants to go home. Advised to stay but he does not agree and signed AMA 2. Chronic alcohol use and dependence: Does not seem patient is alcohol withdrawal symptoms. He drinks once a month about 3-4 shots of vodka. #3. Chronic asthma with allergic rhinitis: continue home fluticasone regimen, with as needed bronchodilator #4. Anxiety and depression: Continue venlafaxine, mirtazapine, hydroxyzine with previous escitalopram usage which eventually per record caused angioedema. Trazodone discontinued as patient on mirtazapine. Trazodone also decreases seizure threshold. #5. Chronic Kidney Disease Stage II : Admission BUN/Cr 12/1.36, GFR 71, baseline renal function 0.9-1.4. #6. Chronic normocytic anemia: Admission hemoglobin 11.8, MCV 84.7, baseline hemoglobin noted previous similar 11-12 milligram p.o. #7. Tobacco Abuse: Encouraged cessation, inpatient consultation per RT, NR if desired. #8. GERD with history of previous GI bleed: continue home PPI regimen. #9. DVT prophylaxis: Low risk for type of presentation. Encourage ambulation once appropriate. Medications at Discharge Home Medications albuterol sulfate 90 mcg/actuation aerosol inhaler 2 puff inhalation Q4H PRN wheezing 06/25/24 cyclobenzaprine 10 mg tablet 5 - 10 mg PO QHS PRN muscle spasm 06/25/24 escitalopram oxalate 10 mg tablet 10 mg PO DAILY 06/25/24 fluticasone propionate 220 mcg/actuation HFA aerosol inhaler 1 puff inhalation Q12H 06/25/24 fluticasone propionate 50 mcg/actuation nasal spray,suspension 2 spray intranasal DAILY 06/25/24 hydroxyzine HCl 25 mg tablet 25 mg PO 4X/DAY PRN Breakthrough anxiety 06/25/24 mirtazapine 15 mg tablet 15 mg PO QHS 06/25/24 omeprazole 20 mg capsule,delayed release 20 mg PO DAILY 06/25/24 venlafaxine 37.5 mg capsule,extended release 24 hr 37.5 mg PO DAILY 06/25/24 Physical Exam Narrative Seen and examined Patient is states he does not have any symptoms and feels 100% good. Wants to go home. When declined, he signed AMA Patient is admitted for benzodiazepine and alcohol withdrawal but predominantly benzodiazepine. He takes Xanax unclear of exact dosing but he says 3 mg 2-3 times daily. He drinks vodka 3-4 shots every month. He is having withdrawal symptoms of nightmare, scary dreams but denies seizure hallucination or shaking. Patient is restless. He denies history of hep B, hep C and HIV. Denies history of opioid use or needle use Physical exam General: Awake, lethargic, restless. Oriented to time place and person HEENT: Atraumatic, PERRLA, EOMI, Normocephalic Oral: No Gingival or Mucosal Lesions/ Ulcerations Neck: Supple, No JVD, Negative Carotid Bruits Chest wall/Lungs: Air entry diminished in bilateral lung bases. No crepitation/rhonchi Cardiovascular: Regular rate, Regular Rhythm, Normal S1, Normal S2, No M/G/R Abdomen: Bowel Sounds Present, Soft, Non Tender, Non-Distended : No dysuria. No renal angle tenderness. No suprapubic tenderness. Extremities: No edema, Capillary Refill Less than 3 Seconds Skin: No rashes, No breakdown Musculoskeletal: No Tenderness to Palpation of Joints or Extremities Neurological: Cranial nerves II-XII grossly intact, DTR 2+/4. No acute focal neurological deficit. Psych/Mental Status: Restless. Disorganized behavior Weight / BMI Weight Weight: 219 lb 11.36 oz Body Mass Index (BMI) 30.6 ABG / Lab / Microbiology Data 06/25/24 17:10 06/27/24 04:52 Laboratory: Laboratory Results - last 24 hr 06/27/24 04:52: Sodium 139, Potassium 4.0, Chloride 105, Carbon Dioxide 23.3, Anion Gap 11, BUN 12, Creatinine 1.16, Estim Creat Clear Calc 109.97, Est GFR (MDRD) Non-Af 86, BUN/Creatinine Ratio 10.3, Glucose 99, Calcium 8.4 D/C Instructions DC O2, CPAP, BIPAP Needs Home O2 Discharge instructions: No Meaningful Use Info Meaningful Use Meaningful Use Diagnoses (Choose all that apply): None applicable Ischemic Stroke Statin Dosing Therapy Reference: STATIN DOSE THERAPY REFERENCE: * Patients > 75 years receive moderate or high dose statin therapy. * Patients 75 years or YOUNGER should receive HIGH intensity statin dose unless contraindicated. You will be required to document reason for non-treatment if statin daily dose does not meet guidelines. HIGH DOSE STATIN THERAPY DAILY Atorvastatin > than or = to 40 mg Rosuvastatin > than or = to 20 mg Amlodipine + Atorvastatin > than or = to 2.5/40 mg Ezetimibe + Simvastatin 10/80 mg Simvastatin 80mg Discharge Plan Admission Admit Date/Time: 06/25/24 19:30 Attending Provider: Montez oCok Primary Care Provider: Karyna Maldonado NP Consulting Providers: Vidhya Barnhart Discharge Orders/Prescriptions Prescriptions: No Action venlafaxine 37.5 mg capsule,extended release 24hr 37.5 mg PO DAILY omeprazole 20 mg capsule,delayed release(DR/EC) 20 mg PO DAILY mirtazapine 15 mg tablet 15 mg PO QHS cyclobenzaprine 10 mg tablet 5 - 10 mg PO QHS PRN (Reason: muscle spasm) escitalopram oxalate 10 mg tablet 10 mg PO DAILY hydroxyzine HCl 25 mg tablet 25 mg PO 4X/DAY PRN (Reason: Breakthrough anxiety) fluticasone propionate 220 mcg/actuation HFA aerosol inhaler 1 puff INHALATION Q12H albuterol sulfate 90 mcg/actuation HFA aerosol inhaler 2 puff INHALATION Q4H PRN (Reason: wheezing) fluticasone propionate 50 mcg/actuation spray,suspension 2 spray INTRANASAL DAILY Referrals / Follow Up: Karyna Maldonado COMMUNITY ENGAGEMENT SPECIALIST, COMMUNITY ENGAGEMENT SPECIALIST-C [Primary Care Provider] - Disposition Disposition (needs filled in before D/C Order can be placed): Against Medical Advice Charges/Coding Visit Charges Inpatient E&M: 14961 Disch Hosp >30min
== END 2024-06-27 12:29 | disposition left against medical advice (07) | DRG 770 ==
LOC: ED 17:10 → MS3 19:47
PROVIDERS: Admitting Provider Family Medicine; Emergency Provider Emergency Medicine; PCP Internal Medicine; Visit Provider Internal Medicine
DX: F13.230 Sedative, hypnotic or anxiolytic dependence with withdrawal, uncomplicated (principal); D64.9 Anemia, unspecified; F32.A Depression, unspecified; J45.909 Unspecified asthma, uncomplicated; F10.230 Alcohol dependence with withdrawal, uncomplicated; F17.210 Nicotine dependence, cigarettes, uncomplicated; F41.9 Anxiety disorder, unspecified; K21.9 Gastro-esophageal reflux disease without esophagitis; N18.2 Chronic kidney disease, stage 2 (mild); R03.0 Elevated blood-pressure reading, without diagnosis of hypertension; Z53.29 Procedure and treatment not carried out because of patient's decision for other reasons; Z88.2 Allergy status to sulfonamides; Z87.19 Personal history of other diseases of the digestive system; Z87.442 Personal history of urinary calculi; Z79.899 Other long term (current) drug therapy
CPT/HCPCS: 36415; 80048; 80076; 80307; 82077; 83735; 84100; 85025; 97802; 99285; P9612; A4216

== ENCOUNTER 2024-08-22 18:27 | Observation (INO) | payer MEDICAID, SELFPAY ==
[2024-08-22 18:29] VITALS: BP 144/89; PULSE 99; RESP 14; TEMP 37.1; O2SAT 96; BMI 31.2
[2024-08-22 19:04] LABS: Absolute Lymphocyte Count 2.37 X10^3/uL (0.83-4.51); Absolute Neutrophil Count 2.8 X10^3/uL (2.0-7.7); Basophil# 0.04 X10^3/uL; Basophil% 0.7 % (0-1); Eosinophil# 0.27 X10^3/uL; Eosinophils% 4.6 % (0-5); Hematocrit 42.2 % (40-54); Hemoglobin 13.8 g/dL (13.0-16.5); Lymphocyte # 2.37 X10^3/ul (0.83-4.51); Mean Corp Hgb Conc 32.7 g/dL (32-36); Mean Corpuscular Hgb 26.7 pg (27.0-32.0); Mean Corpuscular Volume 81.6 fL (80-94); Mean Platelet Vol. 10.1 fl (6.2-12.0); Monocyte# 0.41 X10^3/uL; Monocyte% 6.9 % (0-10); NRBC Flagged by Analyzer 0 % (0-5); Neutrophil # 2.81 X10^3/uL (2.7-7.7); Neutrophil % 47.5 % (47-70); Platelet Count 287 K/mm3 (150-450); RBC Distribution Width CV 13.1 % (11.6-14.6); RBC Distribution Width SD 38.5 fl (35.1-43.9); Red Blood Count 5.17 M/mm3 (4.6-6.2); White Blood Count 5.9 K/mm3 (4.4-11.0)
[2024-08-22 19:17] LABS: International Normalized Ratio 0.9; Prothrombin Time (Protime)PT. 12.6 SECONDS (11.7-14.9)
[2024-08-22 19:26] LABS: Alcohol, Blood (Medical)-Serum 15.5 mg/dL (<=10.0)
[2024-08-22 19:27] LABS: ALB/GLOB Ratio 1.3 RATIO (0.9-2.4); AST(SGOT) 43 U/L (<=37); Alanine Aminotransfer ALT/SGPT 38 U/L (<=46); Albumin, Serum 4.2 g/dL (3.5-5.0); Alkaline Phosphatase 99 U/L (40-129); Anion Gap 10 (5-15); BUN 9 mg/dL (4-19); BUN/Creat Ratio 7.5 RATIO (10-20); Calcium,Total 9.2 mg/dL (7.6-11.0); Chloride 104 mmol/L (98-108); Creatinine, Serum 1.18 mg/dL (0.70-1.20); EST Glomerular Filtration Rate 84 (>60); Globulin 3.2 g/dL (2.2-4.2); Glucose 93 mg/dL (70-99); Potassium 4.1 mmol/L (3.3-5.1); Protein, Total 7.4 g/dL (5.9-8.4); Sodium Level 141 mmol/L (133-145); Total Bilirubin 0.23 mg/dL (0.00-1.30)
[2024-08-22 19:28] VITALS: BP 147/79; PULSE 89; RESP 17; O2SAT 98
--- NOTE | 2024-08-22 19:51 | EX.ED.SAOD ---
HPI History of Present Illness Chief Complaint: Substance Abuse Informant: patient Narrative Narrative: 34-year-old male seeking detoxification from alcohol benzodiazepines and Percocet. Patient states that he was here in June for detox and left AMA after a misunderstanding on his discharge time. He states he did not go to rehab or follow-up with anybody. He states now he is seeking detox for the first time to truly better himself. He states that he occasionally drinks alcohol. He states that he uses benzodiazepines maybe every other day. He states that he does not use Oxy but he uses Percocet every other day. Patient states that he plans on going to a rehab facility after his detox stay but is unsure where. He states that he he last used some benzodiazepines Percocet and some alcohol this morning. [facility] Medical History Admitted to alcohol detoxification center Allergic rhinitis Benzodiazepine abuse, continuous Chronic anemia Asthma CKD (chronic kidney disease), stage II GERD (gastroesophageal reflux disease) History of GI bleed Anxiety and depression Tobacco use Alcohol abuse Kidney stones Home Medications ?Medication ?Instructions ?Recorded ?Last Taken ?Type albuterol sulfate 90 mcg/actuation 2 puff inhalation Q4H PRN wheezing 06/25/24 Unknown History aerosol inhaler cyclobenzaprine 10 mg tablet 5 - 10 mg PO QHS PRN muscle spasm 06/25/24 Unknown History escitalopram oxalate 10 mg tablet 10 mg PO DAILY 06/25/24 06/25/24 History fluticasone propionate 220 1 puff inhalation Q12H 06/25/24 Unknown History mcg/actuation HFA aerosol inhaler fluticasone propionate 50 2 spray intranasal DAILY 06/25/24 Unknown History mcg/actuation nasal spray,suspension hydroxyzine HCl 25 mg tablet 25 mg PO 4X/DAY PRN Breakthrough 06/25/24 Unknown History anxiety mirtazapine 15 mg tablet 15 mg PO QHS 06/25/24 Unknown History omeprazole 20 mg capsule,delayed 20 mg PO DAILY 06/25/24 Unknown History release venlafaxine 37.5 mg 37.5 mg PO DAILY 06/25/24 Unknown History capsule,extended release 24 hr Allergy/AdvReac Type Severity Reaction Status Date / Time Sulfa (Sulfonamide Allergy Hives Verified 08/22/24 18:29 Antibiotics) Family History Mother COPD (chronic obstructive pulmonary disease) Alcohol abuse Polysubstance abuse Father COPD (chronic obstructive pulmonary disease) Alcohol abuse Polysubstance abuse Surgical History History of mandibular surgery Social History household members: other details: Lives with girlfriend (she has no EtOH or substance abuse history per pt) Smoking Status: Current some day smoker tobacco type: cigarettes alcohol intake: current alcohol intake frequency: 3 or more drinks per day Alcohol type: hard liquor substance use type: other details: BZD, ~ 2 gm daily at least. ROS ROS ED Constitutional Constitutional ED: Denies chills or weight loss Eyes Eyes: Denies change in vision or diplopia ENT ENT ED: Denies ear pain, rhinorrhea or sore throat Cardiovascular Cardiovascular: Denies chest pain, orthopnea, palpitations or racing heartbeat Respiratory/Chest Respiratory/Chest: Denies cough, dyspnea or orthopnea Gastrointestinal Gastrointestinal: Denies abdominal pain, diarrhea, nausea or vomiting Genitourinary Genitourinary ED: Denies dysuria, hematuria or urinary frequency Musculoskeletal Musculoskeletal: Denies arthralgias or myalgias Integumentary Denies abscess or rash Neurologic Neurologic: Denies headache(s) or weakness Psychiatric Psychiatric: Reports depression; Denies anxiety, suicidal ideation or suicidal thoughts Endocrine Endocrinology: Denies polydipsia, polyphagia or polyuria Allergic/Immunologic Allergic/Immunologic ED: Denies mouth swelling, tongue swelling or urticaria EXAM Physical Exam Const Vital Signs: 08/22/24 18:29 08/22/24 19:28 Temperature 98.8 F Temperature Source Oral Pulse Rate 99 89 Respiratory Rate 14 17 Blood Pressure 144/89 H 147/79 H Blood Pressure Mean 107 101 Pulse Ox 96 98 Oxygen Delivery Method Room Air Room Air Positive well nourished and well developed General Appearance ED: well developed and NAD HEENT Reports normocephalic, head/scalp atraumatic and moist mucous membranes Eyes PERRL and EOMs intact bilaterally Neck no lymphadenopathy, supple and no JVD Resp normal respiratory effort and clear to auscultation bilaterally Cardio regular rate, regular rhythm and no murmurs GI normal to inspection, nondistended, normoactive bowel sounds and non-tender Palpation: soft Back/Spine no CVA tenderness and normal ROM Extremity normal to inspection General Extremety ED: Negative for edema General Extremity: Negative for edema Neuro oriented x3 and CN's II-XII intact bilaterally Sensorium / Orientation: alert Motor Exam: strength 5/5 throughout Psych Psych Narrative: Patient has a very disinterested affect. He answers minimally to questions. He makes minimal eye contact. He is up pacing the room and going through his backpack. He denies suicidal homicidal ideations. Mood & Affect: Negative for depressed or tearful Skin no rashes or lesions noted and no wounds MDM MDM MDM Narrative Medical decision making narrative: Differential diagnosis includes polysubstance abuse depression anxiety withdrawal liver disease coagulopathy kidney disease ED addiction labs were ordered. CBC shows a white count 5.9 hemoglobin 13.8 platelet count of 287. Normal INR at 0.9. Ethyl alcohol at 15.5. Liver enzymes shows a AST of 43 ALT of 38 normal bilirubin at 0.23. Urine toxicology is currently pending. I will be speaking with the hospitalist about the possibility of admission. History & Record Review Discussion w/independent historian: Patient Additional record(s) reviewed:: Prior inpatient record, Prior ED visit and Prior labs Lab Data Attestation: I reviewed the patient's lab results. Labs: Laboratory Results - last 24 hr 08/22/24 18:55 WBC 5.9 RBC 5.17 Hgb 13.8 Hct 42.2 MCV 81.6 MCH 26.7 L MCHC 32.7 RDW Std Deviation 38.5 RDW Coeff of Omid 13.1 Plt Count 287 MPV 10.1 Immature Gran % (Auto) 0.300 Neut % (Auto) 47.5 Lymph % (Auto) 40.0 [place] % (Auto) 6.9 Eos % (Auto) 4.6 Baso % (Auto) 0.7 Absolute Neuts (auto) 2.8 Absolute Lymphs (auto) 2.37 Nucleated RBC % 0 PT 12.6 INR 0.9 Sodium 141 Potassium 4.1 Chloride 104 Carbon Dioxide 27.0 Anion Gap 10 BUN 9 Creatinine 1.18 Estim Creat Clear Calc 109.10 Est GFR (MDRD) Non-Af 84 BUN/Creatinine Ratio 7.5 L Glucose 93 Calcium 9.2 Total Bilirubin 0.23 AST 43 H ALT 38 Alkaline Phosphatase 99 Total Protein 7.4 Albumin 4.2 Globulin 3.2 Albumin/Globulin Ratio 1.3 Ethyl Alcohol 15.5 H Management Discussion w/another healthcare provider: Hospitalist (Dr Barnhart) Discharge Plan Triage Chief Complaint: Substance Abuse ED Provider: Sebastian Loera Dx/Rx/DC Orders Prescriptions: No Action venlafaxine 37.5 mg capsule,extended release 24hr 37.5 mg PO DAILY omeprazole 20 mg capsule,delayed release(DR/EC) 20 mg PO DAILY mirtazapine 15 mg tablet 15 mg PO QHS cyclobenzaprine 10 mg tablet 5 - 10 mg PO QHS PRN (Reason: muscle spasm) escitalopram oxalate 10 mg tablet 10 mg PO DAILY hydroxyzine HCl 25 mg tablet 25 mg PO 4X/DAY PRN (Reason: Breakthrough anxiety) fluticasone propionate 220 mcg/actuation HFA aerosol inhaler 1 puff INHALATION Q12H albuterol sulfate 90 mcg/actuation HFA aerosol inhaler 2 puff INHALATION Q4H PRN (Reason: wheezing) fluticasone propionate 50 mcg/actuation spray,suspension 2 spray INTRANASAL DAILY Primary Care Provider: Karyna Maldonado NP Referrals: Karyna Maldonado LIBRARY HISTORIAN, LIBRARY HISTORIAN-C [Primary Care Provider] - Print Language: Czech
--- NOTE | 2024-08-22 19:51 | PCM.HP.STD ---
HPI - General General Date of Admission: 08/22/24 Date of Service: 08/22/24 Chief Complaint: Requesting EtOH/BZD detox. HPI Narrative The patient is a 34 y/o M w/ PMHx: Asthma with allergic rhinitis, GERD w/ Hx GI bleed, Anxiety and Depression, Tobacco use, Hx Nephrolithiasis, CKD stage II per GFR trending, EtOH abuse and BZD abuse in addition to occasional Percocet use however he notes that the last time he used a Percocet pill was greater than 5 to 6 days previously and is only occasional, most recently discharged 06/27/2024 following detox attempt now Emiliana presenting reporting that his last intake was earlier in the day including both benzos and alcohol desiring clean status prompting ED evaluation. He currently in the ED denies any marked withdrawal symptoms aside from fatigue and lethargy. Workup in the ED included T97.9, heart 85, BP 145/84, respiratory rate 16, 99% on room air, CBC with WC 5.9, anemia 13.8, platelet 287, good shift, unremarkable coags, CMP with AST 43 otherwise unremarkable, alcohol 15.5, pending urine drug screen upon request evaluation of patient. [facility] Medical History Admitted to alcohol detoxification center Allergic rhinitis Benzodiazepine abuse, continuous Chronic anemia Asthma CKD (chronic kidney disease), stage II GERD (gastroesophageal reflux disease) History of GI bleed Anxiety and depression Tobacco use Alcohol abuse Kidney stones Home Medications ?Medication ?Instructions ?Recorded ?Last Taken ?Type albuterol sulfate 90 mcg/actuation 2 puff inhalation Q4H PRN wheezing 06/25/24 Unknown History aerosol inhaler cyclobenzaprine 10 mg tablet 5 - 10 mg PO QHS PRN muscle spasm 06/25/24 Unknown History escitalopram oxalate 10 mg tablet 10 mg PO DAILY 06/25/24 06/25/24 History fluticasone propionate 220 1 puff inhalation Q12H 06/25/24 Unknown History mcg/actuation HFA aerosol inhaler fluticasone propionate 50 2 spray intranasal DAILY 06/25/24 Unknown History mcg/actuation nasal spray,suspension hydroxyzine HCl 25 mg tablet 25 mg PO 4X/DAY PRN Breakthrough 06/25/24 Unknown History anxiety mirtazapine 15 mg tablet 15 mg PO QHS 06/25/24 Unknown History omeprazole 20 mg capsule,delayed 20 mg PO DAILY 06/25/24 Unknown History release venlafaxine 37.5 mg 37.5 mg PO DAILY 06/25/24 Unknown History capsule,extended release 24 hr Allergy/AdvReac Type Severity Reaction Status Date / Time Sulfa (Sulfonamide Allergy Hives Verified 08/22/24 18:29 Antibiotics) Family History Mother COPD (chronic obstructive pulmonary disease) Alcohol abuse Polysubstance abuse Father COPD (chronic obstructive pulmonary disease) Alcohol abuse Polysubstance abuse Surgical History History of mandibular surgery Social History (Updated 08/22/24 @ 20:[address] Vidhya Barnhart MD) household members: other details: Lives with girlfriend (she has no EtOH or substance abuse history per pt) Smoking Status: Current some day smoker tobacco type: cigarettes Smoking packs per day: 0.5 Smoking cigarettes per day: 10.0 alcohol intake: current alcohol intake frequency: 3 or more drinks per day Alcohol type: hard liquor substance use type: other details: BZD, ~ 2 gm daily at least. Notes occasional percocet, last use >5 days. ROS ROS Narrative Admission Review of Systems: CONSTITUTIONAL: No weight loss, fever, chills, + weakness or fatigue. HEENT: Eyes: No visual loss, blurred vision, double vision or yellow sclerae. Ears, Nose, Throat: No hearing loss, sneezing, congestion, runny nose or sore throat. SKIN: No rash or itching, lesions, wounds. CARDIOVASCULAR: No chest pain, chest pressure or chest discomfort, palpitations, edema, orthopnea, syncopal events. RESPIRATORY: No shortness of breath, cough or sputum, wheezing, hemoptysis. GASTROINTESTINAL: No marked anorexia, nausea, vomiting or diarrhea, abdominal pain, melena, BRBPR. GENITOURINARY: No dysuria, frequency, urgency or retention. NEUROLOGICAL: + Fatigued, somnolent. No headache, dizziness, syncope, paralysis, ataxia, numbness or tingling in the extremities, focal weakness, change in bowel or bladder control, seizure. MUSCULOSKELETAL: + Muscle, back pain, joint pain or stiffness. HEMATOLOGIC: + Chronic anemia, current presentation Hgb normal level. No marked easy history of bleeding or bruising. LYMPHATICS: No enlarged nodes. No history of splenectomy. PSYCHIATRIC: + History of anxiety and depression. ENDOCRINOLOGIC: No reports of sweating, cold or heat intolerance. No polyuria or polydipsia. ALLERGIES: + History of asthma, allergic rhinitis, hives and angioedema. Vital Signs Vital Signs Vital Signs: 08/22/24 18:29 08/22/24 19:28 Temperature 98.8 F Temperature Source Oral Pulse Rate 99 89 Respiratory Rate 14 17 Blood Pressure 144/89 H 147/79 H Blood Pressure Mean 107 101 Pulse Ox 96 98 Oxygen Delivery Method Room Air Room Air Weight Weight: 224 lb Body Mass Index (BMI) 31.2 Physical Exam Narrative Physical Examination: General: Awake, alert, oriented x 3 and cooperative, fatigued and mildly somnolent but interactive and able to answer questions, denies any acute withdrawal symptoms at this time. Skin: Normal color, normal turgor, no icterus, no cyanosis. HEENT: AT/NC, EOMI, PERRLA, mildly dry MM, no carotid bruits or JVD noted. Lungs: Diminished, greater bases, poor effort, no rales, ronchi or wheezing. Heart: Regular rate and rhythm; no gallop, rub audible. Abdomen: Soft, NTTP, ND, mildly hyperactive BS, no discerned HSM. Extremities: No cyanosis, clubbing, or edema. Neurological: Patient awake, alert, oriented as noted, cognitive function intact; pupils equally reactive to light and accommodation, cranial nerves gross normal, moving all 4 extremities, no focal deficits, strength mildly globally decreased. Psychiatric: Affect appears flat, fatigued although more alert than previous admission of note, no acute evidence of depressive or anxiety feelings but does have underlying history. Results Lab / Micro Data 08/22/24 18:55 08/22/24 18:55 Labs: Laboratory Results - last 24 hr 08/22/24 18:55: WBC 5.9, RBC 5.17, Hgb 13.8, Hct 42.2, MCV 81.6, MCH 26.7 L, MCHC 32.7, RDW Std Deviation 38.5, RDW Coeff of Omid 13.1, Plt Count 287, MPV 10.1, Immature Gran % (Auto) 0.300, Neut % (Auto) 47.5, Lymph % (Auto) 40.0, [place] % (Auto) 6.9, Eos % (Auto) 4.6, Baso % (Auto) 0.7, Absolute Neuts (auto) 2.8, Absolute Lymphs (auto) 2.37, Nucleated RBC % 0, PT 12.6, INR 0.9, Sodium 141, Potassium 4.1, Chloride 104, Carbon Dioxide 27.0, Anion Gap 10, BUN 9, Creatinine 1.18, Estim Creat Clear Calc 109.10, Est GFR (MDRD) Non-Af 84, BUN/Creatinine Ratio 7.5 L, Glucose 93, Calcium 9.2, Total Bilirubin 0.23, AST 43 H, ALT 38, Alkaline Phosphatase 99, Total Protein 7.4, Albumin 4.2, Globulin 3.2, Albumin/Globulin Ratio 1.3, Ethyl Alcohol 15.5 H Assessment & Plan Assessment/Plan (1) Benzodiazepine abuse: (2) Alcohol abuse: PLAN: Plan The patient is a 34 y/o M w/ PMHx: Asthma with allergic rhinitis, GERD w/ Hx GI bleed, Anxiety and Depression, Tobacco use, Hx Nephrolithiasis, CKD stage II per GFR trending, EtOH abuse and BZD abuse in addition to occasional Percocet use however he notes that the last time he used a Percocet pill was greater than 5 to 6 days previously and is only occasional, most recently discharged 06/27/2024 following detox attempt now re-presenting reporting that his last intake was earlier in the day including both benzos and alcohol desiring clean status prompting ED evaluation. #1. Chronic alcohol and benzodiazepine abuse with requested detoxification, occasional percocet usage (low suspicion for opiate withdrawal): Will admit to OR, routine labs obtained in the ED upon presentation. Given interest in sobriety/clean status, will initiate and continue on protocol with taper course of Phenobarbital, as needed gabapentin, Catapres, Bentyl, Vistaril, IV fluids, IV antiemetics, Tylenol as needed for pain. Will consult Case management for assistance for transition to next level of rehabilitation care. Mag, phos pending. UDS pending upon admission. #2. Elevated BP with hypertensive diagnosis: Similar presentation during previous presentation, elevated blood pressure, possibly underlying hypertensive diagnosis but did not remain long enough nor seemed inclined for medication, at this time we will continue to monitor and will maintain on IV hydralazine. Given his history as well as underlying chronic kidney disease would benefit from aggressive follow-up to assure this is properly treated if the case. #3. Chronic asthma with allergic rhinitis: Will maintain on PRN albuterol, HOB, IS parameters, encourage tobacco cessation, continue home fluticasone regimen. #4. Anxiety and depression: Likely related with his abuse history, would benefit from ongoing counseling evaluation outpatient, unclear medications, clarifying medications as currently listed on mirtazapine, as needed hydroxyzine, escitalopram, venlafaxine. #5. Chronic Kidney Disease Stage II per GFR trending: Admission BUN/Cr 9/1.18, GFR 84, baseline renal function 0.9-1.4. Given patient age would strongly benefit from early follow-up and continue monitoring of his renal function. #6. Tobacco Abuse: Encouraged cessation, inpatient consultation per RT, NR if desired. #7. GERD with history of previous GI bleed: Continue on PPI regimen. #8. DVT prophylaxis: Low risk for type of presentation, encourage ambulation. Charges/Coding Visit Charges Inpatient E&M: 90258 Init Hosp L2
[2024-08-22 20:02] VITALS: BP 145/84; PULSE 85; RESP 16; TEMP 36.6; O2SAT 99
[2024-08-22 20:38] VITALS: BMI 29.6
[2024-08-22 20:38] LABS: Phosphorus 3.6 mg/dL (2.7-4.5)
[2024-08-22 20:55] VITALS: BP 135/89; PULSE 86; RESP 18; TEMP 36.7; O2SAT 98
[2024-08-22] MEDS: Lactated Ringers 1,000 ML 125 ML IV (21:22)
[2024-08-22] MEDS: hydrOXYzine PAM 25 MG Capsule 50 MG PO (21:23)
[2024-08-22] MEDS: Dicyclomine 10 MG Capsule 20 MG PO (21:23)
[2024-08-22] MEDS: Mirtazapine 15 MG Tablet PO (21:23)
[2024-08-22] MEDS: Ondansetron 8 MG Tablet PO (21:23)
[2024-08-22] MEDS: Phenobarbital 32.4 MG Tablet PO (21:23)
[2024-08-23] VITALS (9 sets, daily range): BP systolic 111–150; BP diastolic 53–96; PULSE 75–97; RESP 16–18; TEMP 36.4–36.8; O2SAT 94–99
[2024-08-23] MEDS: Phenobarbital 32.4 MG Tablet PO ×6 (01:13→22:10)
[2024-08-23 06:33] LABS: Amphetamine Urine NEGATIVE (<1000 ng/mL); Barbiturate Urine PRESUMPTIVE POSITIVE (< 200 ng/mL); Benzodiazepine Urine PRESUMPTIVE POSITIVE (< 200 ng/mL); Buprenorphine Urine NEGATIVE (< 200 ng/mL); Cocaine Urine NEGATIVE (< 300 ng/mL); Fentanyl, Urine NEGATIVE; Methadone Urine NEGATIVE (< 300 ng/mL); Opiates Urine NEGATIVE (< 300 ng/mL); Oxycodone, Urine NEGATIVE (< 100 ng/mL); PCP Urine NEGATIVE (< 25 ng/mL); THC Urine PRESUMPTIVE POSITIVE (< 50 ng/mL)
--- NOTE | 2024-08-23 07:31 | PN.HOSP_ITS ---
Reason for Visit Reason for Visit: Diagnoses Alcohol abuse, uncomplicated (08/22/24) Sedative, hypnotic or anxiolytic abuse, uncomplicated (08/22/24) Subjective Subjective Patient is a 34-year-old gentleman with history of chronic alcohol and benzo dependence who presented with desire to undergo detoxification Objective Data Objective Data Vital Signs: Vital Signs Temp Pulse Resp BP Pulse Ox O2 Del Method 97.8 F 79 16 143/92 H 99 Room Air 08/23/24 06:03 08/23/24 06:03 08/23/24 06:03 08/23/24 06:03 08/23/24 06:03 08/23/24 06:03 Oxygen Delivery Method Room Air Weight: 96.3 kg Body Mass Index (BMI) 29.6 Intake & Output: Intake and Output for Last 24 Hours 08/21/24 08/22/24 08/23/24 23:59 23:59 23:59 Intake Total 450 / 450 Output Total 655 / 655 Balance -205 / -205 Lab / Micro Data 08/22/24 18:55 08/22/24 18:55 Labs: Laboratory Results - last 24 hr 08/22/24 18:55: WBC 5.9, RBC 5.17, Hgb 13.8, Hct 42.2, MCV 81.6, MCH 26.7 L, MCHC 32.7, RDW Std Deviation 38.5, RDW Coeff of Omid 13.1, Plt Count 287, MPV 10.1, Immature Gran % (Auto) 0.300, Neut % (Auto) 47.5, Lymph % (Auto) 40.0, [place] % (Auto) 6.9, Eos % (Auto) 4.6, Baso % (Auto) 0.7, Absolute Neuts (auto) 2.8, Absolute Lymphs (auto) 2.37, Nucleated RBC % 0, PT 12.6, INR 0.9, Sodium 141, Potassium 4.1, Chloride 104, Carbon Dioxide 27.0, Anion Gap 10, BUN 9, Creatinine 1.18, Estim Creat Clear Calc 109.10, Est GFR (MDRD) Non-Af 84, B UN/Creatinine Ratio 7.5 L, Glucose 93, Calcium 9.2, Phosphorus 3.6, Magnesium 2.0, Total Bilirubin 0.23, AST 43 H, ALT 38, Alkaline Phosphatase 99, Total Protein 7.4, Albumin 4.2, Globulin 3.2, Albumin/Globulin Ratio 1.3, Ethyl Alcohol 15.5 H 08/23/24 05:57: Urine Opiates Screen NEGATIVE, U Buprenorphine Qual NEGATIVE, Ur Oxycodone Screen NEGATIVE, Urine Methadone Screen NEGATIVE, Urine Fentanyl Screen NEGATIVE, Ur Barbiturates Screen PRESUMPTIVE POSITIVE, Ur Phencyclidine Scrn NEGATIVE, Ur Amphetamines Screen NEGATIVE, U Benzodiazepines Scrn PRESUMPTIVE POSITIVE, Urine Cocaine Screen NEGATIVE, U Cannabinoids Screen PRESUMPTIVE POSITIVE Physical Exam Narrative GENERAL: Patient is lethargic but easily arousable HEENT: Atraumatic; normocephalic EYES; Anicteric, Normal Conjunctiva NECK; supple, normal thyroid, RESPIRATORY: Diminished to auscultation CARDIOVASCULAR: Regular S1 S2, GI: soft, normoactive bowel sounds, : No Renal angle tenderness; EXTREMITIES: No edema, no clubbing, MUSCULOSKELETAL: no muscle wasting NEURO: Awake; no lateralizing signs. SKIN: No Rash PSYCH; Flat affect Assessment & Plan Assessment/Plan (1) Benzodiazepine abuse: (2) Alcohol abuse: PLAN: Plan Patient is a 34-year-old gentleman with history of chronic alcohol and benzo dependence who presented with desire to undergo detoxification 1. Acute alcohol and benzo withdrawal - Patient has been admitted for treatment with phenobarb taper in addition to adjuvant medications including gabapentin, Bentyl, hydroxyzine and clonidine as needed for alcohol withdrawal symptoms. Patient was also placed on thiamine and folic acid. Consultation placed to [facility] counseling services 2. Mild intermittent asthma ? Bronchodilator treatment as needed 3. Allergic rhinitis ? Patient is on fluticasone did continue 4. GERD ? Patient is on PPI did continue 5. Depression with anxiety ? Patient is on venlafaxine did continue 6. Tobacco dependence ? Counseled on cessation, offered nicotine patch for tobacco cravings 7.Elevated blood pressure ? Patient is not a known hypertensive. Elevated blood pressure thought to be secondary to patient withdrawal.Did order amlodipine 5 mg daily in addition to hydralazine as needed for systolic blood pressure greater than 160 8. DVT prophylaxis ? Low risk encourage ambulation Charges/Coding Visit Charges Inpatient E&M: 38528 Subs Hosp L2
[2024-08-23] MEDS: Thiamine Hydrochloride 100 MG Tablet PO ×2 (09:19)
[2024-08-23] MEDS: Multivitamins,Ther W-Minerals Tablet 1 TABLET PO (09:19)
[2024-08-23] MEDS: Folic Acid 1 MG Tablet PO (09:19)
[2024-08-23] MEDS: Pantoprazole Sodium 20 MG Tablet PO (09:20)
[2024-08-23] MEDS: amLODIPine 5 MG Tablet PO (09:20)
[2024-08-23] MEDS: Escitalopram Oxalate 10 MG Tablet PO (09:20)
--- NOTE | 2024-08-23 16:35 | ADDICTION ---
Pt was met with to complete the RAMP assessment, DUDIT, AUDIT, ASAM, MSE, DC Plan and to discuss tx options/needs. Pt presents as a 34 yr M admitted to [facility] to address daily alcohol, Benzo, and Opioid use with persistent and chronic relapse hx. Pt admits he has been using for many years and has been unable to stop despite significant consequences. He reports that he is somewhat ambivalent about tx, but he is willing to try going to residential. Pt is scheduled to admit directly to [facility] w/[facility] on the same day he is discharged. A [facility] Peer Supporter will transport Pt to [facility]. Pt was provided information on his upcoming transfer to residential and he was provided a packet of info on substance use tx and resources.
[2024-08-23] MEDS: hydrOXYzine PAM 25 MG Capsule 50 MG PO (18:00)
[2024-08-23] MEDS: Mirtazapine 15 MG Tablet PO (22:10)
[2024-08-24] VITALS (7 sets, daily range): BP systolic 127–150; BP diastolic 77–112; PULSE 74–97; RESP 16–18; TEMP 36.1–37; O2SAT 95–100
[2024-08-24] MEDS: Phenobarbital 32.4 MG Tablet PO ×5 (02:01→21:18)
--- NOTE | 2024-08-24 08:02 | PCM.PN.HOSP ---
Reason for Visit Reason for Visit: Diagnoses Alcohol abuse, uncomplicated (08/22/24) Sedative, hypnotic or anxiolytic abuse, uncomplicated (08/22/24) Objective Data Objective Data Vital Signs: Vital Signs Temp Pulse Resp BP Pulse Ox O2 Del Method 97.8 F 80 18 141/93 H 98 Room Air 08/24/24 05:55 08/24/24 05:55 08/24/24 05:55 08/24/24 05:55 08/24/24 05:55 08/24/24 05:55 Oxygen Delivery Method Room Air Weight: 212 lb 4.882 oz Body Mass Index (BMI) 29.6 Intake & Output: Intake and Output for Last 24 Hours 08/22/24 08/23/24 08/24/24 23:59 23:59 23:59 Intake Total 3100 / 3580 960 / 960 Output Total 655 / 655 Balance 2445 / 2925 960 / 960 Lab / Micro Data 08/24/24 07:52 08/24/24 07:52 Physical Exam Narrative Seen and examined Patient admitted with history of alcohol, opioid/oxycodone and benzo diazepam dependence. He states he drinks about 1 beer every day or sometimes. He takes Xanax 2 mg daily. Denies hallucination Physical exam General: Awake. Disoriented to time and place. HEENT: Atraumatic, PERRLA, EOMI, Normocephalic. Oral: No Gingival or Mucosal Lesions/ Ulcerations Neck: Supple, No JVD, Negative Carotid Bruits Chest wall/Lungs: Air entry diminished in bilateral lung bases. No crepitation/rhonchi Cardiovascular: Regular rate and rhythm, Normal S1,S2, No M/G/R Abdomen: Bowel Sounds Present, Soft, Non Tender, Non-Distended : No dysuria. No renal angle tenderness. No suprapubic tenderness. Extremities: No edema, Capillary Refill Less than 3 Seconds Skin: No rashes, No breakdown Musculoskeletal: No Tenderness to Palpation of Joints or Extremities Neurological: Cranial nerves II-XII grossly intact, DTR 2+/4. No acute focal neurological deficit. Psych/Mental Status: Mild withdrawal symptoms. Assessment & Plan Assessment/Plan (1) Benzodiazepine abuse: (2) Alcohol abuse: PLAN: Plan Patient is a 34-year-old gentleman with history of chronic alcohol and benzo dependence who presented with desire to undergo detoxification 1. Acute alcohol and benzodiazepine withdrawal but predominant benzodiazepine withdrawal: Patient is on MedSurg floor. The patient is started on buprenorphine along with other adjunctive medications as needed for medical stabilization as per order set of opioid withdrawal syndrome.Patient also on trazodone, hydroxyzine, gabapentin as needed ordered. Advised quitting opioid use. marketing programs manager consult. Patient also on phenobarbital for benzodiazepine withdrawal symptoms. 2. Mild intermittent asthma ? Bronchodilator treatment as needed 3. Allergic rhinitis ? Patient is on fluticasone did continue 4. GERD ? Patient is on PPI did continue 5. Depression with anxiety ? Patient is on venlafaxine did continue 6. Tobacco dependence ? Counseled on cessation, offered nicotine patch for tobacco cravings 7.Elevated blood pressure ? Patient not hypertension. On amlodipine for elevated blood pressure. 8. DVT prophylaxis ? Low risk encourage ambulation Charges/Coding Visit Charges Inpatient E&M: 09297 Subs Hosp L2
[2024-08-24 08:21] LABS: Absolute Lymphocyte Count 2.54 X10^3/uL (0.83-4.51); Absolute Neutrophil Count 3.8 X10^3/uL (2.0-7.7); Basophil# 0.02 X10^3/uL; Basophil% 0.3 % (0-1); Eosinophil# 0.24 X10^3/uL; Eosinophils% 3.4 % (0-5); Hematocrit 41.8 % (40-54); Hemoglobin 13.4 g/dL (13.0-16.5); Lymphocyte # 2.54 X10^3/ul (0.83-4.51); Lymphocyte % 35.8 % (19-41); Mean Corp Hgb Conc 32.1 g/dL (32-36); Mean Corpuscular Hgb 26.7 pg (27.0-32.0); Mean Corpuscular Volume 83.4 fL (80-94); Mean Platelet Vol. 10.4 fl (6.2-12.0); Monocyte# 0.44 X10^3/uL; Monocyte% 6.2 % (0-10); NRBC Flagged by Analyzer 0 % (0-5); Neutrophil # 3.81 X10^3/uL (2.7-7.7); Neutrophil % 53.7 % (47-70); Platelet Count 235 K/mm3 (150-450); RBC Distribution Width CV 13.1 % (11.6-14.6); RBC Distribution Width SD 39.7 fl (35.1-43.9); Red Blood Count 5.01 M/mm3 (4.6-6.2); White Blood Count 7.1 K/mm3 (4.4-11.0)
[2024-08-24 09:03] LABS: ALB/GLOB Ratio 1.1 RATIO (0.9-2.4); AST(SGOT) 24 U/L (<=37); Alanine Aminotransfer ALT/SGPT 27 U/L (<=46); Albumin, Serum 3.5 g/dL (3.5-5.0); Alkaline Phosphatase 89 U/L (40-129); Anion Gap 8 (5-15); BUN 9 mg/dL (4-19); BUN/Creat Ratio 7.6 RATIO (10-20); Calcium,Total 8.7 mg/dL (7.6-11.0); Chloride 104 mmol/L (98-108); Creatinine, Serum 1.16 mg/dL (0.70-1.20); EST Glomerular Filtration Rate 86 (>60); Estimated Creatinine Clearance 108.23 ml/min (50-250); Globulin 3.1 g/dL (2.2-4.2); Glucose 112 mg/dL (70-99); Potassium 3.9 mmol/L (3.3-5.1); Protein, Total 6.6 g/dL (5.9-8.4); Sodium Level 140 mmol/L (133-145); Total Bilirubin 0.21 mg/dL (0.00-1.30)
[2024-08-24 09:12] LABS: Phosphorus 2.8 mg/dL (2.7-4.5)
[2024-08-24] MEDS: amLODIPine 5 MG Tablet PO (09:40)
[2024-08-24] MEDS: Ibuprofen 600 MG Tablet PO (09:40)
[2024-08-24] MEDS: Methocarbamol 750 MG Tablet PO ×2 (09:40→21:18)
[2024-08-24] MEDS: cloNIDine HCl 0.1 MG Tablet PO (09:40)
[2024-08-24] MEDS: Pantoprazole Sodium 20 MG Tablet PO (09:40)
[2024-08-24] MEDS: Folic Acid 1 MG Tablet PO (09:40)
[2024-08-24] MEDS: Thiamine Hydrochloride 100 MG Tablet PO (09:40)
[2024-08-24] MEDS: Dicyclomine 10 MG Capsule 20 MG PO (09:41)
[2024-08-24] MEDS: Escitalopram Oxalate 10 MG Tablet PO (09:41)
[2024-08-24] MEDS: Multivitamins,Ther W-Minerals Tablet 1 TABLET PO (09:41)
[2024-08-24] MEDS: hydrOXYzine PAM 25 MG Capsule 50 MG PO (13:59)
--- NOTE | 2024-08-24 16:10 | CASEMGMT ---
Social Work- SW attempted to meet with pt to complete SDOH. Pt requests meeting tomorrow, as pt does not feel well, was lying in bed with blanket over head, and asked to not be disturbed. SW will try again tomorrow. SANGEETHA Chanel
[2024-08-24] MEDS: Ondansetron 8 MG Tablet PO (21:18)
[2024-08-24] MEDS: Mirtazapine 15 MG Tablet PO (21:19)
[2024-08-25] MEDS: Phenobarbital 32.4 MG Tablet PO ×4 (05:17→22:41)
[2024-08-25 05:18] VITALS: BP 146/83; PULSE 65; RESP 16; TEMP 36.6; O2SAT 100
[2024-08-25 09:03] VITALS: BP 118/76; PULSE 76; RESP 16; TEMP 36.8; O2SAT 98
[2024-08-25] MEDS: Thiamine Hydrochloride 100 MG Tablet PO (09:17)
[2024-08-25] MEDS: Gabapentin 300 MG Capsule PO ×2 (09:17→20:29)
[2024-08-25] MEDS: Dicyclomine 10 MG Capsule 20 MG PO (09:17)
[2024-08-25] MEDS: amLODIPine 5 MG Tablet PO (09:17)
[2024-08-25] MEDS: Escitalopram Oxalate 10 MG Tablet PO (09:17)
[2024-08-25] MEDS: Folic Acid 1 MG Tablet PO (09:17)
[2024-08-25] MEDS: Multivitamins,Ther W-Minerals Tablet 1 TABLET PO (09:17)
[2024-08-25] MEDS: Pantoprazole Sodium 20 MG Tablet PO (09:20)
[2024-08-25] MEDS: Polyethylene Glycol 3350 17 GM PACKET PO (10:24)
[2024-08-25] MEDS: Senna/Docusate Sodium 1 Tablet 2 TABLET PO ×2 (10:24→22:41)
--- NOTE | 2024-08-25 10:41 | ADDICTION ---
Pt is being transported to [facility] inpatient treatment on Saturday. [facility] will provide transportation.
[2024-08-25 11:25] VITALS: BP 116/78; PULSE 84; RESP 16; TEMP 36.9; O2SAT 97
--- NOTE | 2024-08-25 14:31 | PN.HOSP_ITS ---
Reason for Visit Reason for Visit: Diagnoses Alcohol abuse, uncomplicated (08/22/24) Sedative, hypnotic or anxiolytic abuse, uncomplicated (08/22/24) Objective Data Objective Data Vital Signs: Vital Signs Temp Pulse Resp BP Pulse Ox O2 Del Method 98.4 F 84 16 116/78 97 Room Air 08/25/24 11:25 08/25/24 11:25 08/25/24 11:25 08/25/24 11:25 08/25/24 11:25 08/25/24 11:25 Oxygen Delivery Method Room Air Weight: 212 lb 4.882 oz Body Mass Index (BMI) 29.6 Intake & Output: Intake and Output for Last 24 Hours 08/23/24 08/24/24 08/25/24 23:59 23:59 23:59 Intake Total 3100 / 3580 960 / 960 Output Total 655 / 655 Balance 2445 / 2925 960 / 960 Lab / Micro Data 08/24/24 07:52 08/24/24 07:52 Physical Exam Narrative Seen and examined Patient is still lethargic and sleepy. Not fully alert. Patient admitted with history of alcohol, opioid/oxycodone and benzo diazepam dependence. He states he drinks about 1 beer every day or sometimes. He takes Xanax 2 mg daily. Denies hallucination Physical exam General: Awake. Oriented to place. Intermittent drowsiness and sleepiness HEENT: Atraumatic, PERRLA, EOMI, Normocephalic. Oral: No Gingival or Mucosal Lesions/ Ulcerations Neck: Supple, No JVD, Negative Carotid Bruits Chest wall/Lungs: Air entry diminished in bilateral lung bases. No crepitation/rhonchi Cardiovascular: Regular rate and rhythm, Normal S1,S2, No M/G/R Abdomen: Bowel Sounds Present, Soft, Non Tender, Non-Distended : No dysuria. No renal angle tenderness. No suprapubic tenderness. Extremities: No edema, Capillary Refill Less than 3 Seconds Skin: No rashes, No breakdown Musculoskeletal: No Tenderness to Palpation of Joints or Extremities Neurological: Cranial nerves II-XII grossly intact, DTR 2+/4. No acute focal neurological deficit. Psych/Mental Status: Mild withdrawal symptoms. Assessment & Plan Assessment/Plan (1) Benzodiazepine abuse: (2) Alcohol abuse: PLAN: Plan Patient is a 34-year-old gentleman with history of chronic alcohol and benzo dependence who presented with desire to undergo detoxification 1. Acute alcohol and benzodiazepine withdrawal but predominant benzodiazepine withdrawal: Patient is on MedSurg floor. The patient is started on buprenorphine along with other adjunctive medications as needed for medical stabilization as per order set of opioid withdrawal syndrome.Patient also on trazodone, hydroxyzine, gabapentin as needed ordered. Advised quitting opioid use. retail manager in training consult. Patient also on phenobarbital for benzodiazepine withdrawal symptoms. 5/6: Discussed with Paul. He is excepted for inpatient rehab. Possible discharge tomorrow. Patient still has withdrawal symptoms, drowsy and lethargic. 2. Mild intermittent asthma ? Bronchodilator treatment as needed 3. Allergic rhinitis ? Patient is on fluticasone did continue 4. GERD ? Patient is on PPI did continue 5. Depression with anxiety ? Patient is on venlafaxine did continue 6. Tobacco dependence ? Counseled on cessation, offered nicotine patch for tobacco cravings 7.Elevated blood pressure ? Patient not hypertension. On amlodipine for elevated blood pressure. 8. DVT prophylaxis ? Low risk encourage ambulation Charges/Coding Visit Charges Inpatient E&M: 17620 Subs Hosp L2
[2024-08-25] MEDS: hydrOXYzine PAM 25 MG Capsule 50 MG PO (15:46)
--- NOTE | 2024-08-25 17:42 | CASEMGMT ---
Social Work- SW met with pt to complete SDOH assessment. SW introduced self and role; pt agreeable to meeting. Pt reports no income prior to admittance. Pt reports that he has never applied for food stamps, but would be interested. Pt reports stable housing. Pt reports that he has utilized food drives previously. SW provided the following resources: [employer] utility programs, [employer] card, food resources, transportation resources, and food stamp application. Pt requests a letter to be sent to [facility]. SW created a letter, which pt signed. SW faxed letter to probation. Plan: 180, inpatient SANGEETHA Chanel
[2024-08-25 20:16] VITALS: BP 143/74; PULSE 82; RESP 18; TEMP 37.2; O2SAT 97
[2024-08-25] MEDS: Mirtazapine 15 MG Tablet PO (22:42)
[2024-08-26 05:11] VITALS: BP 112/82; PULSE 59; RESP 18; TEMP 36.4; O2SAT 97
[2024-08-26] MEDS: Phenobarbital 32.4 MG Tablet PO (05:15)
[2024-08-26] MEDS: Senna/Docusate Sodium 1 Tablet 2 TABLET PO (08:59)
[2024-08-26] MEDS: Escitalopram Oxalate 10 MG Tablet PO (08:59)
[2024-08-26] MEDS: Polyethylene Glycol 3350 17 GM PACKET PO (08:59)
[2024-08-26] MEDS: amLODIPine 5 MG Tablet PO (08:59)
[2024-08-26] MEDS: Folic Acid 1 MG Tablet PO (09:00)
[2024-08-26] MEDS: Thiamine Hydrochloride 100 MG Tablet PO (09:00)
[2024-08-26] MEDS: Multivitamins,Ther W-Minerals Tablet 1 TABLET PO (09:00)
[2024-08-26] MEDS: Pantoprazole Sodium 20 MG Tablet PO (09:01)
[2024-08-26 09:56] VITALS: BP 125/77; PULSE 72; RESP 14; TEMP 36.6; O2SAT 100
--- NOTE | 2024-08-26 10:19 | PCM.DC ---
Discharge Instructions Diet Discharge Diet: No restrictions DC O2, CPAP, BIPAP needs Home O2 Discharge instructions: No Dressing / Incision Discharge Activity: Return to Normal Activity Weight Bearing Status: Weight bearing as tolerated Dressing / Incision Call your doctor if you observe: Fever of 101 or Higher, Coldness, Increased Pain, Numbness or Tingling, Change in Color, Inability to urinate, Inability to have a bowel movement, Shortness of breath, Dizziness, Fainting spells, Swelling in the ankles, Chest pain, Prolonged hiccupping, Increased palpitations (irregular heartbeat) and Calf discomfort Follow Up Care When: IN 2 WEEKS Test Results: Test results from this visit will be discussed in further detail at your follow-up appointment, if applicable. Discharge Plan Admission Admit Date/Time: 08/22/24 19:51 Attending Provider: Montez Cook Primary Care Provider: Karyna Maldonado NP Consulting Providers: Vidhya Barnhart; Checo Ashby Discharge Orders/Prescriptions Prescriptions: Continued venlafaxine 37.5 mg capsule,extended release 24hr 37.5 mg PO DAILY omeprazole 20 mg capsule,delayed release(DR/EC) 20 mg PO DAILY mirtazapine 15 mg tablet 15 mg PO QHS cyclobenzaprine 10 mg tablet 5 - 10 mg PO QHS PRN (Reason: muscle spasm) escitalopram oxalate 10 mg tablet 10 mg PO DAILY hydroxyzine HCl 25 mg tablet 25 mg PO 4X/DAY PRN (Reason: Breakthrough anxiety) fluticasone propionate 220 mcg/actuation HFA aerosol inhaler 1 puff INHALATION Q12H albuterol sulfate 90 mcg/actuation HFA aerosol inhaler 2 puff INHALATION Q4H PRN (Reason: wheezing) fluticasone propionate 50 mcg/actuation spray,suspension 2 spray INTRANASAL DAILY Referrals / Follow Up: Karyna Maldonado WELL SERVICE FLOOR WORKER, WELL SERVICE FLOOR WORKER-C [Primary Care Provider] - Disposition Disposition (needs filled in before D/C Order can be placed): DC/Tx to Another Type of HCF
--- NOTE | 2024-08-26 10:23 | DS.PCM_ITS ---
Providers Date of Admission: 08/22/24 Date of Discharge: 08/26/24 Primary Care Physician: KEVIN Martel Reason For Visit: ETOH/BZD DETOX Diagnosis Discharge Diagnosis (1) Benzodiazepine abuse: Status: Acute Code(s): F13.10 - Sedative, hypnotic or anxiolytic abuse, uncomplicated (2) Alcohol abuse: Status: Acute Code(s): F10.10 - Alcohol abuse, uncomplicated Plan Patient is a 34-year-old gentleman with history of chronic alcohol and benzo dependence who presented with desire to undergo detoxification 1. Acute alcohol and benzodiazepine withdrawal but predominant benzodiazepine withdrawal: Patient is on MedSurg floor. The patient is started on buprenorphine along with other adjunctive medications as needed for medical stabilization as per order set of opioid withdrawal syndrome.Patient also on trazodone, hydroxyzine, gabapentin as needed ordered. Advised quitting opioid use. strategic planning manager consult. Patient also on phenobarbital for benzodiazepine withdrawal symptoms. 08/25: Discussed with Paul. He is excepted for inpatient rehab. Possible discharge tomorrow. Patient still has withdrawal symptoms, drowsy and lethargic. 08/26: Patient is being discharged to inpatient facility for substance use rehab. 2. Mild intermittent asthma ? Bronchodilator treatment as needed 3. Allergic rhinitis ? Patient is on fluticasone did continue 4. GERD ? Patient is on PPI did continue 5. Depression with anxiety ? Patient is on venlafaxine did continue 6. Tobacco dependence ? Counseled on cessation, offered nicotine patch for tobacco cravings 7.Elevated blood pressure ? Patient not hypertension. On amlodipine for elevated blood pressure. 8. DVT prophylaxis ? Low risk encourage ambulation Medications at Discharge Home Medications albuterol sulfate 90 mcg/actuation aerosol inhaler 2 puff inhalation Q4H PRN wheezing 06/25/24 cyclobenzaprine 10 mg tablet 5 - 10 mg PO QHS PRN muscle spasm 06/25/24 escitalopram oxalate 10 mg tablet 10 mg PO DAILY 06/25/24 fluticasone propionate 220 mcg/actuation HFA aerosol inhaler 1 puff inhalation Q12H 06/25/24 fluticasone propionate 50 mcg/actuation nasal spray,suspension 2 spray intranasal DAILY 06/25/24 hydroxyzine HCl 25 mg tablet 25 mg PO 4X/DAY PRN Breakthrough anxiety 06/25/24 mirtazapine 15 mg tablet 15 mg PO QHS 06/25/24 omeprazole 20 mg capsule,delayed release 20 mg PO DAILY 06/25/24 venlafaxine 37.5 mg capsule,extended release 24 hr 37.5 mg PO DAILY 06/25/24 Physical Exam Narrative Seen and examined Patient is more awake. He went to bathroom himself. Patient admitted with history of alcohol, opioid/oxycodone and benzo diazepam dependence. He states he drinks about 1 beer every day or sometimes. He takes Xanax 2 mg daily. Denies hallucination Physical exam General: Awake. Oriented to, time place and person. HEENT: Atraumatic, PERRLA, EOMI, Normocephalic. Oral: No Gingival or Mucosal Lesions/ Ulcerations Neck: Supple, No JVD, Negative Carotid Bruits Chest wall/Lungs: Air entry diminished in bilateral lung bases. No crepitation/rhonchi Cardiovascular: Regular rate and rhythm, Normal S1,S2, No M/G/R Abdomen: Bowel Sounds Present, Soft, Non Tender, Non-Distended : No dysuria. No renal angle tenderness. No suprapubic tenderness. Extremities: No edema, Capillary Refill Less than 3 Seconds Skin: No rashes, No breakdown Musculoskeletal: No Tenderness to Palpation of Joints or Extremities Neurological: Cranial nerves II-XII grossly intact, DTR 2+/4. No acute focal neurological deficit. Psych/Mental Status: Mild withdrawal symptoms. Weight / BMI Weight Weight: 212 lb 4.882 oz Body Mass Index (BMI) 29.6 ABG / Lab / Microbiology Data 08/24/24 07:52 08/24/24 07:52 D/C Instructions Discharge Diet: No restrictions Weight Bearing Status: Weight bearing as tolerated Call your doctor if you observe: Fever of 101 or Higher, Coldness, Increased Pain, Numbness or Tingling, Change in Color, Inability to urinate, Inability to have a bowel movement, Shortness of breath, Dizziness, Fainting spells, Swelling in the ankles, Chest pain, Prolonged hiccupping, Increased palpitations (irregular heartbeat) and Calf discomfort DC O2, CPAP, BIPAP Needs Home O2 Discharge instructions: No When: IN 2 WEEKS Meaningful Use Info Meaningful Use Meaningful Use Diagnoses (Choose all that apply): None applicable Ischemic Stroke Statin Dosing Therapy Reference: STATIN DOSE THERAPY REFERENCE: * Patients > 75 years receive moderate or high dose statin therapy. * Patients 75 years or YOUNGER should receive HIGH intensity statin dose unless contraindicated. You will be required to document reason for non-treatment if statin daily dose does not meet guidelines. HIGH DOSE STATIN THERAPY DAILY Atorvastatin > than or = to 40 mg Rosuvastatin > than or = to 20 mg Amlodipine + Atorvastatin > than or = to 2.5/40 mg Ezetimibe + Simvastatin 10/80 mg Simvastatin 80mg Discharge Plan Admission Admit Date/Time: 08/22/24 19:51 Attending Provider: Montez Cook Primary Care Provider: Karyna Maldonado NP Consulting Providers: Vidhya Barnhart; Checo Ashby Discharge Orders/Prescriptions Prescriptions: Continued venlafaxine 37.5 mg capsule,extended release 24hr 37.5 mg PO DAILY omeprazole 20 mg capsule,delayed release(DR/EC) 20 mg PO DAILY mirtazapine 15 mg tablet 15 mg PO QHS cyclobenzaprine 10 mg tablet 5 - 10 mg PO QHS PRN (Reason: muscle spasm) escitalopram oxalate 10 mg tablet 10 mg PO DAILY hydroxyzine HCl 25 mg tablet 25 mg PO 4X/DAY PRN (Reason: Breakthrough anxiety) fluticasone propionate 220 mcg/actuation HFA aerosol inhaler 1 puff INHALATION Q12H albuterol sulfate 90 mcg/actuation HFA aerosol inhaler 2 puff INHALATION Q4H PRN (Reason: wheezing) fluticasone propionate 50 mcg/actuation spray,suspension 2 spray INTRANASAL DAILY Referrals / Follow Up: Karyna Maldonado EDUCATIONAL TECHNOLOGY SPECIALIST, EDUCATIONAL TECHNOLOGY SPECIALIST-C [Primary Care Provider] - Disposition Disposition (needs filled in before D/C Order can be placed): DC/Tx to Another Type of HCF Charges/Coding Visit Charges Inpatient E&M: 18194 Disch Hosp >30min
--- NOTE | 2024-08-26 11:05 | PHA.DC.MR.R ---
Pharmacy [facility] Med Reconciliation Pharmacy Service has performed discharge medication reconciliation for this patient. The patient's discharge medication list was reviewed for discrepancies and discrepancies were resolved. Medications at Discharge Home Medications albuterol sulfate 90 mcg/actuation aerosol inhaler 2 puff inhalation Q4H PRN wheezing 06/25/24 cyclobenzaprine 10 mg tablet 5 - 10 mg PO QHS PRN muscle spasm 06/25/24 escitalopram oxalate 10 mg tablet 10 mg PO DAILY 06/25/24 fluticasone propionate 220 mcg/actuation HFA aerosol inhaler 1 puff inhalation Q12H 06/25/24 fluticasone propionate 50 mcg/actuation nasal spray,suspension 2 spray intranasal DAILY 06/25/24 hydroxyzine HCl 25 mg tablet 25 mg PO 4X/DAY PRN Breakthrough anxiety 06/25/24 mirtazapine 15 mg tablet 15 mg PO QHS 06/25/24 omeprazole 20 mg capsule,delayed release 20 mg PO DAILY 06/25/24 venlafaxine 37.5 mg capsule,extended release 24 hr 37.5 mg PO DAILY 06/25/24
== END 2024-08-26 11:30 | disposition other institution (70) | DRG 775 ==
LOC: ED 19:57 → MS3 08-23 07:05
PROVIDERS: Internal Medicine; Admitting Provider Family Medicine; Emergency Provider Emergency Medicine; PCP Internal Medicine; Visit Provider Internal Medicine
DX: F13.239 Sedative, hypnotic or anxiolytic dependence with withdrawal, unspecified (principal); F10.230 Alcohol dependence with withdrawal, uncomplicated; J45.20 Mild intermittent asthma, uncomplicated; K21.9 Gastro-esophageal reflux disease without esophagitis; F17.210 Nicotine dependence, cigarettes, uncomplicated; F41.8 Other specified anxiety disorders; N18.2 Chronic kidney disease, stage 2 (mild); R03.0 Elevated blood-pressure reading, without diagnosis of hypertension; Z79.51 Long term (current) use of inhaled steroids; Z79.899 Other long term (current) drug therapy; Z87.19 Personal history of other diseases of the digestive system; Z87.442 Personal history of urinary calculi; Y90.0 Blood alcohol level of less than 20 mg/100 ml
CPT/HCPCS: 36415; 80053; 80307; 82077; 83735; 84100; 85025; 85610; 96360; 96361; 99221; 99284; A4216; G0378

== ENCOUNTER → 2024-10-01 | Outpatient (CLI) | payer MEDICAID, SELFPAY | END | disposition home or self-care (01) | LOC: LABSPEC 13:58 | PROVIDERS: PCP Internal Medicine; Referring Provider Family Medicine; Visit Provider Family Medicine | DX: F15.20 Other stimulant dependence, uncomplicated (principal) ==